=== PATIENT | female | born 1975 | race Caucasian/White ===

== ENCOUNTER 2020-01-08 10:23 | Outpatient (REF) | payer OTHER, SELFPAY ==
[2020-01-08 11:05] LABS: MANUAL DIFF FLAG NO
[2020-01-08 11:06] LABS: Basophils Absolute Auto 0.1 X10*3/uL (0.0-0.2); Basophils Percent Auto 0.6 % (0-2); Eosinophils Absolute Auto 0.2 X10*3/uL (0.0-0.4); Eosinophils Percent Auto 1.9 % (0-4); Hematocrit 38.5 % (37-47); Imm Gran Abs Auto 0.02 X10*3/uL (0.00-0.03); Imm Gran Pct Auto 0.2 % (0.0-0.4); Lymphocytes Absolute Auto 2.6 X10*3/uL (1.2-4.9); Lymphocytes Percent Auto 27.9 % (20-40); Mean Corpuscular HGB Conc 31.2 g/dl (31.0-35.0); Mean Corpuscular Hemoglobin 26.5 pg (27.0-33.0); Mean Platelet Volume 9.7 fL (9.4-12.3); Monocytes Absolute Auto 0.5 X10*3/uL (0.1-1.2); Monocytes Percent Auto 4.8 % (2-11); Neutrophils Percent Auto 64.6 % (45-73); Platelet Count 312 X10*3/uL (160-400); Red Blood Count 4.53 X10*6/uL (4.20-5.50); Red Cell Distribution Width 13.4 % (11.0-16.0); White Blood Count 9.3 X10*3/uL (4.8-10.8)
[2020-01-08 11:56] LABS: Alanine Aminotransferase 24 U/L (0-31); Albumin Level 4.5 g/dL (3.5-5.0); Alkaline Phosphatase 94 U/L (39-117); Anion Gap 13 (12-20); Aspartate Amino Transferase 14 U/L (5-31); Bilirubin Total 0.4 mg/dL (0.0-1.0); Blood Urea Nitrogen 14 mg/dL (9-16); Calcium 9.3 mg/dL (8.4-10.2); Carbon Dioxide 29 mmol/L (22-29); Chloride 99 mmol/L (96-108); Cholesterol 142 mg/dL; Estimated Glomerular Filt Rate > 60; Glucose Random 130 mg/dL (60-115); HDL Cholesterol 57 mg/dL; LDL Cholesterol Calculated 69 mg/dl; Potassium 4.3 mmol/l (3.3-5.1); Sodium 137 mmol/L (135-145); Total Protein 7.8 g/dL (6.5-8.0); Triglycerides 80 mg/dL
[2020-01-08 11:59] LABS: Free T4 (Free Thyroxine) 1.03 ng/dL (0.71-1.85); Thyroid Stimulating Hormone 0.42 uIU/mL (0.32-4.0); Vitamin D 25-OH Total 19.8 ng/mL (>30)
[2020-01-08 12:14] LABS: Folate 10.1 ng/mL (> or = 4.0); Vitamin B12 362 pg/mL (200-900)
[2020-01-08 12:28] LABS: Creatinine Urine 132.26 mg/dL; Microalbum/Creatinine Ratio Ur 20.4 ug/mg cr
== END 2020-01-08 10:24 | disposition home or self-care (01) ==
LOC: HO.LAB 10:23
PROVIDERS: PCP Internal Medicine; Visit Provider Internal Medicine
DX: E11.65 Type 2 diabetes mellitus with hyperglycemia (principal); E78.00 Pure hypercholesterolemia, unspecified; I10 Essential (primary) hypertension
CPT/HCPCS: 36415; 80053; 80061; 82043; 82306; 82607; 82746; 84439; 84443; 85025

== ENCOUNTER 2020-04-09 12:16 | Outpatient (REF) | payer OTHER, SELFPAY ==
[2020-04-09 12:58] LABS: MANUAL DIFF FLAG NO
[2020-04-09 13:01] LABS: Basophils Absolute Auto 0.1 X10*3/uL (0.0-0.2); Basophils Percent Auto 0.5 % (0-2); Eosinophils Absolute Auto 0.1 X10*3/uL (0.0-0.4); Eosinophils Percent Auto 1.2 % (0-4); Hematocrit 36.2 % (37-47); Hemoglobin 11.4 g/dl (12.0-16.0); Imm Gran Abs Auto 0.03 X10*3/uL (0.00-0.03); Imm Gran Pct Auto 0.3 % (0.0-0.4); Lymphocytes Absolute Auto 2.6 X10*3/uL (1.2-4.9); Lymphocytes Percent Auto 25.7 % (20-40); Mean Corpuscular HGB Conc 31.5 g/dl (31.0-35.0); Mean Corpuscular Hemoglobin 26.6 pg (27.0-33.0); Mean Corpuscular Volume 84.4 fL (80-98); Mean Platelet Volume 9.4 fL (9.4-12.3); Monocytes Absolute Auto 0.5 X10*3/uL (0.1-1.2); Monocytes Percent Auto 4.6 % (2-11); Neutrophils Absolute Auto 6.9 X10*3/uL (2.0-8.3); Neutrophils Percent Auto 67.7 % (45-73); Platelet Count 305 X10*3/uL (160-400); Red Blood Count 4.29 X10*6/uL (4.20-5.50); Red Cell Distribution Width 13.8 % (11.0-16.0); White Blood Count 10.2 X10*3/uL (4.8-10.8)
[2020-04-09 13:37] LABS: Alanine Aminotransferase 16 U/L (0-31); Albumin Level 4.2 g/dL (3.5-5.0); Alkaline Phosphatase 104 U/L (39-117); Anion Gap 12 (12-20); Aspartate Amino Transferase 12 U/L (5-31); Bilirubin Total 0.5 mg/dL (0.0-1.0); Blood Urea Nitrogen 14 mg/dL (9-16); Calcium 8.9 mg/dL (8.4-10.2); Carbon Dioxide 30 mmol/L (22-29); Chloride 99 mmol/L (96-108); Estimated Glomerular Filt Rate > 60; Glucose Fasting 127 mg/dL (60-99); Potassium 3.6 mmol/L (3.3-5.1); Sodium 137 mmol/L (135-145); Total Protein 7.5 g/dL (6.5-8.0)
== END 2020-04-09 12:17 | disposition home or self-care (01) ==
LOC: HO.LAB 12:16
PROVIDERS: Absent Provider Internal Medicine; PCP Internal Medicine; Visit Provider Nurse Practitioner Family
DX: E11.65 Type 2 diabetes mellitus with hyperglycemia (principal)
CPT/HCPCS: 36415; 80053; 85025

== ENCOUNTER 2020-04-16 11:47 | Outpatient (REF) | payer OTHER, SELFPAY ==
[2020-04-16 13:19] LABS: MANUAL DIFF FLAG NO
[2020-04-16 13:34] LABS: Basophils Absolute Auto 0.1 X10*3/uL (0.0-0.2); Basophils Percent Auto 0.6 % (0-2); Eosinophils Absolute Auto 0.1 X10*3/uL (0.0-0.4); Eosinophils Percent Auto 1.4 % (0-4); Hematocrit 39.1 % (37-47); Hemoglobin 11.9 g/dl (12.0-16.0); Imm Gran Abs Auto 0.03 X10*3/uL (0.00-0.03); Imm Gran Pct Auto 0.3 % (0.0-0.4); Immature Retic Fraction 8.5 % (3.0-15.9); Lymphocytes Absolute Auto 2.3 X10*3/uL (1.2-4.9); Lymphocytes Percent Auto 25.9 % (20-40); Mean Corpuscular HGB Conc 30.4 g/dl (31.0-35.0); Mean Corpuscular Volume 85.4 fL (80-98); Mean Platelet Volume 9.5 fL (9.4-12.3); Monocytes Absolute Auto 0.4 X10*3/uL (0.1-1.2); Monocytes Percent Auto 4.8 % (2-11); Neutrophils Absolute Auto 6.1 X10*3/uL (2.0-8.3); Platelet Count 349 X10*3/uL (160-400); Red Blood Count 4.58 X10*6/uL (4.20-5.50); Red Cell Distribution Width 13.9 % (11.0-16.0); Reticulocyte Percent 1.4 % (0.5-1.8); Reticulocytes Absolute 0.064 X10*6/uL (0.026-0.095)
[2020-04-16 13:45] LABS: Iron 36 mcg/dL (30-160); Percent Iron Saturation 10 % (15-50); Total Iron Binding Capacity 368 mcg/dL (228-428); Unsaturated Iron Binding 332 ug/dL
[2020-04-16 13:49] LABS: Glucose Urine UA NEG (NEG); Leukocyte Esterase Urine NEG (NEG); Nitrite Urine NEG (NEG); Urine Blood 2+ (NEG); Urine Ketones NEG (NEG); Urine Protein NEG (NEG-TRACE)
[2020-04-16 13:58] LABS: Appearance Urine HAZY; Color Urine YELLOW
[2020-04-16 14:00] LABS: Estimated Average Glucose 154 mg/dL
[2020-04-16 14:08] LABS: Ferritin 43 ng/mL (10-250)
[2020-04-16 14:11] LABS: Bacteria Urine TRACE /LPF; Mucus Urine TRACE /LPF; RBC Urine 30-49 /HPF (0); Squamous Epithelial Cell Urine 1+ /LPF; WBC Urine 0-2 /HPF (0-4)
[2020-04-16 14:29] LABS: Folate 10.7 ng/mL (> or = 4.0); Vitamin B12 449 pg/mL (200-900)
== END 2020-04-16 11:48 | disposition home or self-care (01) ==
LOC: HO.LAB 11:47
PROVIDERS: PCP Internal Medicine; Visit Provider Internal Medicine
DX: D64.9 Anemia, unspecified (principal); E11.65 Type 2 diabetes mellitus with hyperglycemia
CPT/HCPCS: 36415; 81001; 82607; 82728; 82746; 83036; 83540; 85025; 85045

== ENCOUNTER 2020-05-23 11:25 | Outpatient (REF) | payer OTHER, SELFPAY ==
[2020-05-23 12:45] LABS: Glucose Urine UA NEG (NEG); Leukocyte Esterase Urine NEG (NEG); Nitrite Urine NEG (NEG); Specific Gravity - Urine 1.015 (1.005-1.025); Urine Blood TRACE (NEG); Urine Ketones NEG (NEG); Urine Protein NEG (NEG-TRACE)
[2020-05-23 12:49] LABS: Appearance Urine CLEAR; Color Urine YELLOW
[2020-05-23 13:01] LABS: Mucus Urine 1+ /LPF; Squamous Epithelial Cell Urine 1+ /LPF
== END 2020-05-23 11:26 | disposition home or self-care (01) ==
LOC: HO.LAB 11:25
PROVIDERS: PCP Internal Medicine; Visit Provider Internal Medicine
DX: D64.9 Anemia, unspecified (principal)
CPT/HCPCS: 81001

== ENCOUNTER 2020-05-26 13:00 | Outpatient (REF) | payer OTHER, SELFPAY ==
--- NOTE | 2020-05-26 | PFT_ITS ---
INDICATION: Shortness of breath. SPIROMETRY: The FEV1 to FVC of 90% with an FEV1 of 1.55 L, which is 54% predicted, and an FVC of 1.71 L, which is 49% predicted. No significant response to bronchodilators noted. Maximum voluntary ventilation 53% predicted. LUNG VOLUMES: Total lung capacity 72% predicted with an expiratory reserve volume of 23% predicted secondary to an elevated BMI. DIFFUSION CAPACITY: The patient attempted the maneuver, however, could not perform. Therefore, we cannot calculate her diffusion capacity. COMPARISONS: None. INTERPRETATION: No obstructive ventilatory defect. No significant response to bronchodilators noted. The patient does have a moderate decrease in maximum voluntary ventilation secondary to deconditioning, however, cannot rule out neuromuscular conditions. Lung volumes do demonstrate a mild restrictive ventilatory defect. Therefore, need to consider the possibility of underlying interstitial lung conditions and/or neuromuscular conditions. It is likely that her BMI is playing a role in her restriction as it is also decreasing her expiratory reserve volume to a significant amount. Clinical correlation warranted. Further imaging may also be warranted. Ahmet Powell MD MR/MODL / [id number]
== END 2020-05-26 13:01 | disposition home or self-care (01) ==
LOC: HO.RESP 13:00
PROVIDERS: PCP Internal Medicine; Visit Provider Internal Medicine
DX: R06.02 Shortness of breath (principal)
CPT/HCPCS: 94060; 94727

== ENCOUNTER 2020-08-27 11:21 | Outpatient (REF) | payer OTHER, SELFPAY ==
[2020-08-27 14:05] LABS: Glucose Urine UA NEG (NEG); Leukocyte Esterase Urine NEG (NEG); Nitrite Urine NEG (NEG); PH 5.5 (5.0-8.0); Specific Gravity - Urine 1.025 (1.005-1.025); Urine Blood 1+ (NEG); Urine Ketones NEG (NEG); Urine Protein NEG (NEG-TRACE)
[2020-08-27 14:10] LABS: Appearance Urine HAZY; Color Urine YELLOW
[2020-08-27 14:23] LABS: Squamous Epithelial Cell Urine TRACE /LPF; WBC Urine 0-2 /HPF (0-4)
== END 2020-08-27 11:22 | disposition home or self-care (01) ==
LOC: HO.LAB 11:21
PROVIDERS: PCP Internal Medicine; Visit Provider Internal Medicine
DX: D64.9 Anemia, unspecified (principal)
CPT/HCPCS: 81001

== ENCOUNTER 2020-08-28 12:52 | Outpatient (REF) | payer OTHER, SELFPAY ==
[2020-08-28 13:38] LABS: MANUAL DIFF FLAG NO
[2020-08-28 13:41] LABS: Basophils Absolute Auto 0.1 X10*3/uL (0.0-0.2); Basophils Percent Auto 0.8 % (0-2); Eosinophils Absolute Auto 0.3 X10*3/uL (0.0-0.4); Eosinophils Percent Auto 2.6 % (0-4); Hemoglobin 11.5 g/dl (12.0-16.0); Imm Gran Abs Auto 0.04 X10*3/uL (0.00-0.03); Imm Gran Pct Auto 0.4 % (0.0-0.4); Lymphocytes Absolute Auto 2.6 X10*3/uL (1.2-4.9); Lymphocytes Percent Auto 27.3 % (20-40); Mean Corpuscular HGB Conc 31.1 g/dl (31.0-35.0); Mean Corpuscular Hemoglobin 26.3 pg (27.0-33.0); Mean Corpuscular Volume 84.7 fL (80-98); Mean Platelet Volume 9.5 fL (9.4-12.3); Monocytes Absolute Auto 0.6 X10*3/uL (0.1-1.2); Neutrophils Absolute Auto 6.1 X10*3/uL (2.0-8.3); Neutrophils Percent Auto 62.9 % (45-73); Platelet Count 325 X10*3/uL (160-400); Red Blood Count 4.37 X10*6/uL (4.20-5.50); Red Cell Distribution Width 13.7 % (11.0-16.0); White Blood Count 9.7 X10*3/uL (4.8-10.8)
[2020-08-28 14:10] LABS: Alanine Aminotransferase 10 U/L (0-31); Albumin Level 4.2 g/dL (3.5-5.0); Alkaline Phosphatase 99 U/L (39-117); Anion Gap 12 (12-20); Aspartate Amino Transferase 10 U/L (5-31); Bilirubin Total 0.5 mg/dL (0.0-1.0); Blood Urea Nitrogen 11 mg/dL (9-16); Calcium 9.7 mg/dL (8.4-10.2); Carbon Dioxide 29 mmol/L (22-29); Chloride 100 mmol/L (96-108); Estimated Glomerular Filt Rate > 60; Glucose Random 141 mg/dL (60-115); Potassium 4.4 mmol/L (3.3-5.1); Sodium 137 mmol/L (135-145); Total Protein 7.7 g/dL (6.5-8.0)
[2020-08-28 14:32] LABS: Thyroid Stimulating Hormone 0.32 uIU/mL (0.32-4.0)
== END 2020-08-28 12:53 | disposition home or self-care (01) ==
LOC: HO.LAB 12:52
PROVIDERS: PCP Internal Medicine; Visit Provider Internal Medicine
DX: D64.9 Anemia, unspecified (principal); Z12.31 Encounter for screening mammogram for malignant neoplasm of breast
CPT/HCPCS: 36415; 80053; 84439; 84443; 85025

== ENCOUNTER 2021-03-03 09:20 | Outpatient (REF) | payer OTHER, SELFPAY ==
[2021-03-03 09:45] LABS: MANUAL DIFF FLAG NO
[2021-03-03 09:59] LABS: Basophils Absolute Auto 0.1 X10*3/uL (0.0-0.2); Basophils Percent Auto 0.8 % (0-2); Eosinophils Absolute Auto 0.2 X10*3/uL (0.0-0.4); Eosinophils Percent Auto 1.9 % (0-4); Hematocrit 42.7 % (37.0-47.0); Hemoglobin 13.1 g/dl (12.0-16.0); Imm Gran Abs Auto 0.04 X10*3/uL (0.00-0.03); Imm Gran Pct Auto 0.4 % (0.0-0.4); Immature Retic Fraction 12.1 % (3.0-15.9); Lymphocytes Absolute Auto 2.7 X10*3/uL (1.2-4.9); Lymphocytes Percent Auto 28.3 % (20-40); Mean Corpuscular HGB Conc 30.7 g/dl (31.0-35.0); Mean Corpuscular Hemoglobin 25.6 pg (27.0-33.0); Mean Corpuscular Volume 83.6 fL (80.0-98.0); Mean Platelet Volume 9.1 fL (9.4-12.3); Monocytes Absolute Auto 0.6 X10*3/uL (0.1-1.2); Monocytes Percent Auto 5.8 % (2-11); Neutrophils Percent Auto 62.8 % (45-73); Platelet Count 350 X10*3/uL (160-400); Red Blood Count 5.11 X10*6/uL (4.20-5.50); Red Cell Distribution Width 13.9 % (11.0-16.0); Retic HGB Equivalent 27.8 pg (30.0-35.0); Reticulocyte Percent 1.2 % (0.5-1.8); Reticulocytes Absolute 0.063 X10*6/uL (0.026-0.095); White Blood Count 9.6 X10*3/uL (4.8-10.8)
[2021-03-03 10:33] LABS: Alanine Aminotransferase 16 U/L (0-31); Albumin Level 4.5 g/dL (3.5-5.0); Alkaline Phosphatase 106 U/L (39-117); Anion Gap 14 (12-20); Aspartate Amino Transferase 12 U/L (5-31); Bilirubin Total 0.6 mg/dL (0.0-1.0); Blood Urea Nitrogen 12 mg/dL (9-16); Calcium 10.1 mg/dL (8.4-10.2); Carbon Dioxide 29 mmol/L (22-29); Chloride 99 mmol/L (96-108); Cholesterol 141 mg/dL; Estimated Glomerular Filt Rate > 60; Glucose Random 145 mg/dL (60-115); HDL Cholesterol 55 mg/dL; Iron 43 mcg/dL (30-160); LDL Cholesterol Calculated 66 mg/dl; Percent Iron Saturation 10 % (15-50); Potassium 3.8 mmol/L (3.3-5.1); Sodium 138 mmol/L (135-145); Total Iron Binding Capacity 413 mcg/dL (228-428); Total Protein 8.1 g/dL (6.5-8.0); Triglycerides 103 mg/dL; Unsaturated Iron Binding 370 ug/dL
[2021-03-03 10:49] LABS: Appearance Urine CLOUDY; Color Urine YELLOW; Glucose Urine UA >=1000 MG/DL (NEG); Leukocyte Esterase Urine NEG (NEG); Nitrite Urine NEG (NEG); Specific Gravity - Urine 1.025 (1.005-1.025); Urine Blood 3+ (NEG); Urine Ketones NEG (NEG); Urine Protein TRACE MG/DL (NEG-TRACE)
[2021-03-03 10:55] LABS: Microalbum/Creatinine Ratio Ur 41.8 ug/mg cr
[2021-03-03 10:58] LABS: Ferritin 26 ng/mL (10-250); Free T4 (Free Thyroxine) 1.12 ng/dL (0.71-1.85); Thyroid Stimulating Hormone 0.37 uIU/mL (0.32-4.0); Vitamin D 25-OH Total 20.5 ng/mL (>30)
[2021-03-03 11:00] LABS: Bacteria Urine 1+ /LPF; Mucus Urine 1+ /LPF; Squamous Epithelial Cell Urine 2+ /LPF; WBC Urine 0-2 /HPF (0-4)
[2021-03-03 11:03] LABS: Folate 16.9 ng/mL (> or = 4.0); Vitamin B12 529 pg/mL (200-900)
== END 2021-03-03 09:21 | disposition home or self-care (01) ==
LOC: HO.LAB 09:20
PROVIDERS: PCP Internal Medicine; Visit Provider Internal Medicine
DX: E11.65 Type 2 diabetes mellitus with hyperglycemia (principal); E78.00 Pure hypercholesterolemia, unspecified
CPT/HCPCS: 36415; 80053; 80061; 81001; 82043; 82306; 82607; 82728; 82746; 83540; 84439; 84443; 85025; 85045

== ENCOUNTER 2021-08-03 16:15 | Outpatient (REF) | payer OTHER, SELFPAY ==
[2021-08-03 18:17] LABS: Appearance Urine CLEAR; Color Urine STRAW; Glucose Urine UA >=1000 MG/DL (NEG); Leukocyte Esterase Urine NEG (NEG); Nitrite Urine NEG (NEG); UACC Culture Trigger NO; Urine Blood 1+ (NEG); Urine Ketones NEG (NEG); Urine Protein NEG (NEG-TRACE)
[2021-08-03 18:29] LABS: Squamous Epithelial Cell Urine 1+ /LPF
[2021-08-03 18:30] LABS: Bacteria Urine TRACE /LPF; WBC Urine 0-2 /HPF (0-4)
== END 2021-08-03 16:16 | disposition home or self-care (01) ==
LOC: HO.LAB 16:15
PROVIDERS: PCP Internal Medicine; Visit Provider Internal Medicine
DX: R30.0 Dysuria (principal)
CPT/HCPCS: 81001

== ENCOUNTER 2021-11-20 10:30 | Outpatient (REF) | payer OTHER, SELFPAY ==
--- NOTE | ~2021-11-20 | XR_ITS ---
EXAMINATION: XR LUMBOSACRAL SPINE CLINICAL INFORMATION: Low back pain. COMPARISON: [facility] of 06/28/2011. TECHNIQUE: 3 views of the lumbosacral spine. FINDINGS: There are 4 [id number] lumbar vertebra with sacralization of L5. No acute fracture, spondylolisthesis, or spondylolysis is identified. Disc spaces are maintained. There appears to be some mild facet arthropathy at the L4-L5 level. There is some sclerosis seen involving the inferior aspects of the sacroiliac joints bilaterally right greater than left without evidence of fusion or widening. There is some calcific densities seen overlying the mid abdomen bilaterally measuring up to 5 mm in diameter and may represent renal calculi psoas margins are intact. I do not definitely see any calcifications along the expected path of the ureters. IUD seen in place. XR/XR lumbar spine 2-3V IMPRESSION: Sacralization of L5. No acute fracture, spinal listhesis, or spondylolysis identified. Question bilateral renal calculi. Renal ultrasound would be of help in further evaluation as well as for evaluation of possible hydronephrosis and obstructive uropathy causing back pain.
[2021-11-20 10:43] LABS: MANUAL DIFF FLAG NO
[2021-11-20 11:41] LABS: Basophils Absolute Auto 0.1 X10*3/uL (0.0-0.2); Basophils Percent Auto 0.6 % (0-2); Eosinophils Absolute Auto 0.4 X10*3/uL (0.0-0.4); Eosinophils Percent Auto 4.7 % (0-4); Hematocrit 40.8 % (37.0-47.0); Hemoglobin 13.1 g/dl (12.0-16.0); Imm Gran Abs Auto 0.03 X10*3/uL (0.00-0.03); Imm Gran Pct Auto 0.4 % (0.0-0.4); Lymphocytes Absolute Auto 2.2 X10*3/uL (1.2-4.9); Lymphocytes Percent Auto 27.1 % (20-40); Mean Corpuscular HGB Conc 32.1 g/dl (31.0-35.0); Mean Corpuscular Hemoglobin 27.7 pg (27.0-33.0); Mean Corpuscular Volume 86.3 fL (80.0-98.0); Mean Platelet Volume 9.3 fL (9.4-12.3); Monocytes Absolute Auto 0.7 X10*3/uL (0.1-1.2); Neutrophils Absolute Auto 4.9 x10*3/uL (2.0-8.3); Neutrophils Percent Auto 59.2 % (45-73); Platelet Count 273 X10*3/uL (160-400); Red Blood Count 4.73 X10*6/uL (4.20-5.50); Red Cell Distribution Width 13.2 % (11.0-16.0); White Blood Count 8.3 X10*3/uL (4.8-10.8)
[2021-11-20 11:47] LABS: Appearance Urine Clear; Color Urine Yellow; Glucose Urine UA >=1000 mg/dL (Negative); Leukocyte Esterase Urine Negative (Negative); Nitrite Urine Negative (Negative); PH 6.5 (5.0-9.0); Specific Gravity - Urine >= 1.030 (1.005-1.025); UMIC TRIGGER UA YES; Urine Blood Negative (Negative); Urine Ketones Negative (Negative); Urine Protein Negative (Neg-Trace)
[2021-11-20 11:47] LABS: Estimated Average Glucose 140 mg/dL; Hemoglobin A1c % 6.5 %
[2021-11-20 11:54] LABS: Bacteria Urine 1+ (None Seen); Hyaline Casts Urine 0-2 /LPF (0-2); WBC Urine 0-5 /HPF (0-5)
[2021-11-20 12:24] LABS: Alanine Aminotransferase 15 U/L (0-31); Albumin Level 4.4 g/dL (3.5-5.0); Alkaline Phosphatase 103 U/L (39-117); Anion Gap 13 (12-20); Aspartate Amino Transferase 12 U/L (5-31); Bilirubin Total 0.4 mg/dL (0.0-1.0); Blood Urea Nitrogen 10 mg/dL (9-16); Calcium 9.5 mg/dL (8.4-10.2); Carbon Dioxide 30 mmol/L (22-29); Chloride 99 mmol/L (96-108); Estimated Glomerular Filt Rate > 60; Glucose Random 114 mg/dL (60-115); Potassium 4.1 mmol/L (3.3-5.1); Sodium 138 mmol/L (135-145); Total Protein 7.5 g/dL (6.5-8.0)
[2021-11-20 12:35] LABS: Free T4 (Free Thyroxine) 1.09 ng/dL (0.71-1.85); Thyroid Stimulating Hormone 0.33 uIU/mL (0.32-4.0)
== END 2021-11-20 10:31 | disposition home or self-care (01) ==
LOC: HO.XRAY 10:30
PROVIDERS: PCP Internal Medicine; Visit Provider Internal Medicine
DX: M54.50 Low back pain, unspecified (principal); E11.65 Type 2 diabetes mellitus with hyperglycemia
CPT/HCPCS: 36415; 72100; 80053; 81001; 83036; 84439; 84443; 85025

== ENCOUNTER 2021-11-23 09:57 | Outpatient (REF) | payer OTHER, SELFPAY ==
--- NOTE | ~2021-11-23 | XR_ITS ---
EXAMINATION: XR CHEST CLINICAL INFORMATION: Cough COMPARISON: Previous chest x-ray from 2008 TECHNIQUE: 2 views of the chest were obtained. FINDINGS: The cardiac and mediastinal contours are stable. The lungs are clear. There is no pleural effusion or pneumothorax. There are degenerative changes of the spine. XR/XR chest 2V IMPRESSION: No evidence for acute disease in the chest.
[2021-11-23 11:03] LABS: COVID-19 Test Negative (Negative); IDNOW Serial# 16C4AD1C
== END 2021-11-23 09:58 | disposition home or self-care (01) ==
LOC: HO.XRAY 09:57
PROVIDERS: Internal Medicine; PCP Internal Medicine; Visit Provider Internal Medicine
DX: Z20.822 Contact with and (suspected) exposure to COVID-19 (principal); R05.9 Cough, unspecified
CPT/HCPCS: 71046; 87635; C9803

== ENCOUNTER 2022-03-03 10:12 | Outpatient (REF) | payer OTHER, SELFPAY ==
[2022-03-03 10:27] LABS: MANUAL DIFF FLAG NO
[2022-03-03 11:01] LABS: Basophils Percent Auto 0.5 % (0-2); Eosinophils Absolute Auto 0.1 X10*3/uL (0.0-0.4); Hematocrit 41.4 % (37.0-47.0); Hemoglobin 13.4 g/dl (12.0-16.0); Imm Gran Abs Auto 0.02 X10*3/uL (0.00-0.03); Imm Gran Pct Auto 0.4 % (0.0-0.4); Lymphocytes Absolute Auto 1.9 X10*3/uL (1.2-4.9); Lymphocytes Percent Auto 35.2 % (20-40); Mean Corpuscular HGB Conc 32.4 g/dl (31.0-35.0); Mean Corpuscular Hemoglobin 27.8 pg (27.0-33.0); Mean Corpuscular Volume 85.9 fL (80.0-98.0); Mean Platelet Volume 9.7 fL (9.4-12.3); Monocytes Absolute Auto 0.5 X10*3/uL (0.1-1.2); Monocytes Percent Auto 8.9 % (2-11); Neutrophils Absolute Auto 2.9 x10*3/uL (2.0-8.3); Platelet Count 268 X10*3/uL (160-400); Red Blood Count 4.82 X10*6/uL (4.20-5.50); Red Cell Distribution Width 13.1 % (11.0-16.0); White Blood Count 5.5 X10*3/uL (4.8-10.8)
[2022-03-03 11:30] LABS: Estimated Average Glucose 146 mg/dL; Hemoglobin A1c % 6.7 %
[2022-03-03 11:56] LABS: Alanine Aminotransferase 19 U/L (0-31); Albumin Level 4.2 g/dL (3.5-5.0); Alkaline Phosphatase 93 U/L (39-117); Anion Gap 12 (12-20); Aspartate Amino Transferase 15 U/L (5-31); Bilirubin Total 0.5 mg/dL (0.0-1.0); Blood Urea Nitrogen 12 mg/dL (9-16); Calcium 9.6 mg/dL (8.4-10.2); Carbon Dioxide 29 mmol/L (22-29); Chloride 99 mmol/L (96-108); Cholesterol 129 mg/dL; Estimated Glomerular Filt Rate > 60; Glucose Random 161 mg/dL (60-115); HDL Cholesterol 49 mg/dL; LDL Cholesterol Calculated 63 mg/dl; Potassium 3.2 mmol/L (3.3-5.1); Sodium 137 mmol/L (135-145); Total Protein 7.2 g/dL (6.5-8.0); Triglycerides 86 mg/dL
[2022-03-03 12:01] LABS: Free T4 (Free Thyroxine) 1.06 ng/dL (0.71-1.85); Thyroid Stimulating Hormone 0.38 uIU/mL (0.32-4.0); Vitamin D 25-OH Total 20.4 ng/mL (>30)
[2022-03-03 12:16] LABS: Folate 13.5 ng/mL (> or = 4.0); Vitamin B12 403 pg/mL (200-900)
[2022-03-03 14:22] LABS: Creatinine Urine 111.84 mg/dL; Microalbum/Creatinine Ratio Ur 13.4 ug/mg cr
== END 2022-03-03 10:13 | disposition home or self-care (01) ==
LOC: HO.LAB 10:12
PROVIDERS: PCP Internal Medicine; Visit Provider Internal Medicine
DX: E11.65 Type 2 diabetes mellitus with hyperglycemia (principal); I10 Essential (primary) hypertension; E78.00 Pure hypercholesterolemia, unspecified
CPT/HCPCS: 36415; 80053; 80061; 82043; 82306; 82607; 82746; 83036; 84439; 84443; 85025

== ENCOUNTER 2022-03-22 12:20 | Outpatient (REF) | payer OTHER, SELFPAY ==
--- NOTE | ~2022-03-22 | MM_ITS ---
EXAMINATION: MM SCREENING DIGITAL BREAST TOMOSYNTHESIS, BILATERAL CLINICAL INFORMATION: Screening. Asymptomatic. Family history breast cancer, mother. The lifetime risk of breast cancer based on the Tyrer-Cuzick Model is 22%. COMPARISON: Mammography: 01/30/2018 ([facility]) TECHNIQUE: Digital breast tomosynthesis is performed in both the craniocaudal and mediolateral oblique views along with computer-aided detection (CAD). Synthesized 2D images are generated from the tomosynthesis. FINDINGS: There are scattered areas of fibroglandular density (ACR BI-RADS breast composition Category b). Parenchymal pattern is similar to prior outside exam. There is no significant mass or architectural abnormality or developing density. No abnormal calcifications. There are scattered punctate round uniform calcifications in each breast. Dermal lesion is again noted overlying the posterior upper outer right breast. The axilla are unremarkable. No significant changes. MM/MM tomosynthesis screening BI IMPRESSION: No mammographic evidence of malignancy. ASSESSMENT: BI-RADS 2: Benign RECOMMENDATION: Routine annual mammography screening. This patient's information was entered into a reminder system with a target due date for their next mammogram.
== END 2022-03-22 12:21 | disposition home or self-care (01) ==
LOC: HO.MAMMO 12:20
PROVIDERS: PCP Internal Medicine; Visit Provider Internal Medicine
DX: Z12.31 Encounter for screening mammogram for malignant neoplasm of breast (principal)
CPT/HCPCS: 77063; 77067

== ENCOUNTER 2022-06-18 09:54 | Outpatient (REF) | payer OTHER, SELFPAY ==
[2022-06-18 11:01] LABS: Anion Gap 13 (12-20); Blood Urea Nitrogen 14 mg/dL (9-16); Carbon Dioxide 29 mmol/L (22-29); Chloride 104 mmol/L (96-108); Estimated Glomerular Filt Rate > 60; Glucose Random 115 mg/dL (60-115); Potassium 4.3 mmol/L (3.3-5.1); Sodium 142 mmol/L (135-145)
== END 2022-06-18 09:55 | disposition home or self-care (01) ==
LOC: HO.LAB 09:54
PROVIDERS: PCP Internal Medicine; Visit Provider Internal Medicine
DX: E87.6 Hypokalemia (principal)
CPT/HCPCS: 36415; 80048

== ENCOUNTER 2022-09-16 13:58 | Outpatient (AMB) | payer OTHER, SELFPAY ==
--- NOTE | 2022-09-16 15:07 | A.OFFPC_ITS ---
Vital Signs 09/16/22 15:08 Height 5 ft 3 in Weight 210 lb BMI 37.2 BP 124/78 Blood Pressure Location Lt brachial Position Sitting Pulse 80 Pulse Source Pulse Oximeter Pulse Oximetry (%) 98 Oxygen Delivery Method Room Air Intake Visit Reasons: DM Allergies No Known Allergies Allergy (Verified 09/16/22 15:09) Medication List - Last Reconciled 09/16/22 by Raj Rodas MD acetaminophen ER (Tylenol 8 Hour) 650 mg PO Q12H PRN albuterol sulfate 90 mcg/actuation (ProAir HFA) 2 puffs inhalation Q6H PRN alcohol swabs 1 pad topical .QD 90 days amlodipine 2.5 mg PO DAILY aspirin 81 mg PO DAILY atorvastatin 20 mg PO DAILY blood sugar diagnostic As directed blood-glucose sensor ([employer] G5-G4 Sensor device) As directed blood-glucose transmitter ([employer] G5 Transmitter device) As directed cholecalciferol (vitamin D3) 50 mcg PO DAILY 90 days cyclobenzaprine 5 mg PO TID PRN docusate sodium (Colace) 100 mg PO DAILY PRN 90 days empagliflozin (Jardiance) 25 mg PO DAILY 90 days gabapentin 100 mg PO BEDTIME 30 days lancets As directed lidocaine 5% 1 patch topical DAILY 15 days lidocaine 4% (Aspercreme (lidocaine)) 1 patch topical BID PRN lisinopril 30 mg PO DAILY metformin 500 mg PO BID potassium citrate ER 15 mEq PO TID 30 days Tobacco use date assessed: 03/04/22 Dental Screening Dental Screen Date: 09/16/22 Did you have a dental visit in the last 12 months?: Yes Did you have a dental problem in the last 6 months where you did not have access to dental care?: No Was dental information given to patient?: Patient has dentist HPI DM HPI Details 47-year-old obese female with diabetes mellitus hypercholesterolemia hypertension and hypokalemia last seen in May 2022 was concern about potassium and retesting done. Mammogram is up-to-date Cologuard is up-to-date [facility] Medical History (Updated 06/10/22 @ 14:48 by Raj Rodas MD) Anemia Breast cancer screening by mammogram Colon cancer screening Colonoscopy refused Dizziness History of renal calculi Hypercholesterolemia Hypertension Increased abdominal girth Medullary sponge kidney Menorrhagia Obesity Type 2 diabetes mellitus with hyperglycemia Vitamin D deficiency Surgical History History of section History of laparoscopic cholecystectomy Family History (Updated 11/28/20 @ 13:43 by RAIN Delong) Father Pancreatic cancer Hypertension Diabetes Mother Breast cancer Hypertension Brother Hypertension Paternal Grandfather Myocardial infarction Social History Housing: House Alcohol intake: never Patient Tobacco Use Status: Never used Tobacco e-Cigarette/Vaping Use: Never Used Second Hand Smoke Exposure: No service: No Current occupational status: unemployed Cognitive needs: No Hearing needs: No Vision needs: No Questionnaire PHQ-9 Over the last 2 weeks, how often have you been bothered by any of the following problems? 1. Little interest or pleasure in doing things: not at all 2. Feeling down, depressed, or hopeless: not at all 3. Trouble falling or staying asleep, or sleeping too much: not at all 4. Feeling tired or having little energy: not at all 5. Poor appetite or overeating: not at all 6. Feeling bad about yourself - or that you are a failure or have let yourself or your family down: not at all 7. Trouble concentrating on things, such as reading the newspaper or watching television: not at all 8. Moving or speaking so slowly that other people could have noticed. Or the opposite - being so fidgety or restless that you have been moving around a lot more than usual: not at all 9. Thoughts that you would be better off or of hurting yourself in some way: not at all Total score: 0 Depression Screening Interpretation: Negative Source: Developed by Drs. Ender Rosario, Gale Navarro, Alejandro Cabrera and colleagues, with an educational bing from [employer]. Thrive Questionnaire Date Thrive assessed: 03/04/22 AUDIT C Alcohol Use Questionnaire (AUDIT-C) 1. How often do you have a drink containing alcohol?: Never 2. How many drinks containing alcohol do you have on a typical day when you are drinking?: 1 or 2 (0) 3. How often do you have six or more drinks on one occasion?: Never Total Score: 0 ANGELA-7 AMB Questionnaire ANGELA-7 Date ANGELA - 7 assessed: 03/04/22 Source: Developed by Drs. Ender Rosario, Gale Navarro, Alejandro Cabrera and colleagues, with an educational bing from [employer]. Physical exam (Primary Care) Vital Signs: Last Vital Signs Pulse 80 09/16/22 15:08 BP 124/78 09/16/22 15:08 Pulse Ox 98 09/16/22 15:08 Oxygen Delivery Method Room Air 09/16/22 15:08 BMI result Body Mass Index 37.2 Tobacco/Smoking Status: Tobacco use Status Tobacco use date assessed 03/04/22 09/16/22 15:08 Patient Tobacco Use Status Never used Tobacco 09/16/22 15:08 e-Cigarette/Vaping Use Never Used 09/16/22 15:08 PHQ-9: PHQ-9 Score PHQ-9: Total score 0 09/16/22 15:29 Depression Screening Interpretation: Negative Thrive Assessment: Date of Thrive Assessment Date Thrive assessed 03/04/22 09/16/22 15:08 Const General: alert; No acute distress Eyes Conjunctivae: conjunctivae normal Resp Auscultation: clear to auscultation bilaterally Cardio Rate: regular rate Rhythm: regular rhythm GI Inspection: Yes normal to inspection Extrem General: Yes normal to inspection and No edema Results AMB Hemoglobin A1c AMB Hemoglobin A1c 5.7 % Last Edit by Alessandra Reyes CMA on 09/16/22 15 :29 Assessment and Plan Assessment & Plan (1) Type 2 diabetes mellitus with hyperglycemia: Code(s): E11.65 - Type 2 diabetes mellitus with hyperglycemia Qualifiers: Diabetes mellitus continuous churn buttermaker insulin use: unspecified care home insulin use status Qualified Code(s): E11.65 - Type 2 diabetes mellitus with hyperglycemia Plan: Decrease the amount of carbohydrate intake, pasta, bread, rice and potatoes are all sugar and that is aside from all the sweet stuff, remember that fruits are good but they are Sweet also. Hemoglobin A1c goal of less than 6.5 patient takes Jardiance and metformin (2) Obesity: Code(s): E66.9 - Obesity, unspecified Qualifiers: Obesity type: due to excess calories Obesity classification: adult class 3 (BMI >= 40) Serious obesity comorbidity presence: with serious comorbidity Body mass index: BMI 40.0-44.9 Qualified Code(s): E66.01 - Morbid (severe) obesity due to excess calories; Z68.41 - Body mass index [BMI]40.0- 44.9, adult Plan: Diet and exercise (3) Hypercholesterolemia: Code(s): E78.00 - Pure hypercholesterolemia, unspecified Plan: Avoid fried foods, chicken skin, eggs, butter margarine, pastries and meat. Be it pork or beef they have a lot of cholesterol February 2022 last blood work patient is taking atorvastatin 20 mg once a day (4) Hypertension: Code(s): I10 - Essential (primary) hypertension Qualifiers: Hypertension type: essential hypertension Qualified Code(s): I10 - Essential (primary) hypertension Plan: Continue with blood pressure medication. Decrease salt intake and exercise patient is on amlodipine 2.5 mg once a day and lisinopril 30 mg once a day (5) Hypokalemia: Code(s): E87.6 - Hypokalemia Plan: Resolved Orders: Orders AMB Hemoglobin A1c Today Z13.9 - Encounter for screening, unspecified AMB Urinalysis Automated Today M54.50 - Low back pain, unspecified, Z13.9 - Encounter for screening, unspecified Referrals Ophthalmology Referral E11.65 - Type 2 diabetes mellitus with hyperglycemia Medications: New cyclobenzaprine 5 mg PO TID PRN 30 tabs 0RF muscle spasm M54.50 - Low back pain, unspecified Refilled atorvastatin 20 mg PO DAILY 90 tabs 1RF G47.10 - Hypersomnia, unspecified Coding Level of Care Code Est Pt Level 4 (19394) Diagnoses Type 2 diabetes mellitus with hyperglycemia E11.65 Diabetes mellitus continuous churn buttermaker insulin use: unspecified care home insulin use status Obesity E66.01; Z68.41 Obesity type: due to excess calories Obesity classification: adult class 3 (BMI >= 40) Serious obesity comorbidity presence: with serious comorbidity Body mass index: BMI 40.0-44.9 Hypercholesterolemia E78.00 Hypertension I10 Hypertension type: essential hypertension Hypokalemia E87.6
[2022-09-16 15:08] VITALS: BP 124/78; PULSE 80; O2SAT 98; BMI 37.2
== END 2022-09-16 15:43 | disposition home or self-care (01) ==
PROVIDERS: Visit Provider Internal Medicine
DX: E11.65 Type 2 diabetes mellitus with hyperglycemia (principal); E66.01 Morbid (severe) obesity due to excess calories; Z68.41 Body mass index [BMI] 40.0-44.9, adult; E78.00 Pure hypercholesterolemia, unspecified; I10 Essential (primary) hypertension; E87.6 Hypokalemia; Z13.9 Encounter for screening, unspecified
CPT/HCPCS: 83036; 99214

== ENCOUNTER 2023-03-01 20:40 | Emergency (ER) | payer OTHER, SELFPAY ==
--- NOTE | ~2023-03-01 | CT_ITS ---
EXAMINATION: CT ABDOMEN AND PELVIS WITHOUT CONTRAST CLINICAL INFORMATION: Right flank pain. COMPARISON: None available. TECHNIQUE: Multidetector volumetric imaging was performed from the superior aspect of the liver through the pubic symphysis. Sagittal and coronal reformatted images were obtained on the technologist's workstation. This CT examination was performed using dose optimization techniques as appropriate, variously including the following: *Automated exposure control *Adjustment of mA and/or kV according to patient size (this includes techniques or standardized protocols for targeted exams where dose is matched to indication/reason for exam; i.e. extremities or head) *Use of iterative reconstruction technique DLP: 756 mGy-cm FINDINGS: LUNG BASES: The visualized lung bases are unremarkable. LIVER, GALLBLADDER, AND BILIARY TREE: The liver is normal in size, shape, and attenuation. No focal hepatic lesion or biliary ductal dilatation is present. There has been a prior cholecystectomy. PANCREAS: Unremarkable. SPLEEN: Unremarkable. ADRENAL GLANDS: Unremarkable. KIDNEYS AND URETERS: The kidneys are normal in size, and shape as well as overall attenuation. There are numerous bilateral renal calculi as well as calcifications within the renal pyramids. There is no hydronephrosis or hydroureter. BLADDER: Unremarkable. GASTROINTESTINAL TRACT: The small and large bowel are unremarkable. The appendix is unremarkable. ABDOMINAL WALL: No significant hernia is appreciated. LYMPH NODES: Normal. VASCULAR: Unremarkable. PELVIC VISCERA: Unremarkable. OSSEOUS STRUCTURES: Unremarkable. CT/CT abdomen pelvis wo IV con IMPRESSION: 1. Numerous bilateral renal calculi as well as calcifications within the renal pyramids, consistent with medullary nephrocalcinosis. 2. No hydronephrosis or hydroureter. Fleischner guidelines were followed.
[2023-03-01 20:58] VITALS: BP 125/75; PULSE 115; RESP 20; TEMP 37.7; O2SAT 95; BMI 39.0
[2023-03-01 21:42] LABS: MANUAL DIFF FLAG NO
[2023-03-01 21:44] LABS: Basophils Percent Auto 0.2 % (0-2); Eosinophils Percent Auto 0.1 % (0-4); Hematocrit 41.5 % (37.0-47.0); Hemoglobin 13.4 g/dl (12.0-16.0); Imm Gran Abs Auto 0.09 X10*3/uL (0.00-0.03); Imm Gran Pct Auto 0.5 % (0.0-0.4); Lymphocytes Absolute Auto 1.3 X10*3/uL (1.2-4.9); Lymphocytes Percent Auto 7.7 % (20-40); Mean Corpuscular HGB Conc 32.3 g/dl (31.0-35.0); Mean Corpuscular Hemoglobin 27.2 pg (27.0-33.0); Mean Corpuscular Volume 84.3 fL (80.0-98.0); Mean Platelet Volume 8.7 fL (9.4-12.3); Monocytes Absolute Auto 0.9 X10*3/uL (0.1-1.2); Monocytes Percent Auto 5.1 % (2-11); Neutrophils Absolute Auto 14.7 x10*3/uL (2.0-8.3); Neutrophils Percent Auto 86.4 % (45-73); Platelet Count 310 X10*3/uL (160-400); Red Blood Count 4.92 X10*6/uL (4.20-5.50); Red Cell Distribution Width 13.1 % (11.0-16.0); White Blood Count 17.1 X10*3/uL (4.8-10.8)
[2023-03-01 21:45] LABS: Appearance Urine Clear; Color Urine Yellow; Glucose Urine UA >=1000 mg/dL (Negative); Leukocyte Esterase Urine Negative (Negative); Nitrite Urine Negative (Negative); Specific Gravity - Urine >= 1.030 (1.005-1.025); UMIC TRIGGER UACC YES; Urine Blood Small (1+) (Negative); Urine Ketones Negative (Negative); Urine Protein Negative (Neg-Trace)
[2023-03-01 21:46] LABS: UPreg QC Valid YES; Urine Pregnancy NEGATIVE (NEGATIVE)
[2023-03-01 21:50] LABS: Bacteria Urine None Seen (None Seen); Hyaline Casts Urine 0-2 /LPF (0-2); Squamous Epithelial Cell Urine 0-2 /HPF (0-2); UACC Culture Trigger YES
[2023-03-01 22:03] LABS: Alanine Aminotransferase 21 U/L (0-31); Albumin Level 4.4 g/dL (3.5-5.0); Alkaline Phosphatase 109 U/L (39-117); Anion Gap 12 (12-20); Aspartate Amino Transferase 14 U/L (5-31); Bilirubin Total 0.6 mg/dL (0.0-1.0); Blood Urea Nitrogen 9 mg/dL (9-16); Calcium 9.8 mg/dL (8.4-10.2); Carbon Dioxide 23 mmol/L (22-29); Chloride 102 mmol/L (96-108); Creatinine Clr Calc Pharmacy 113.1; Estimated Glomerular Filt Rate > 60; Glucose Random 138 mg/dL (60-115); Potassium 3.8 mmol/L (3.3-5.1); Sodium 133 mmol/L (135-145); Total Protein 8.2 g/dL (6.5-8.0)
[2023-03-02 00:20] VITALS: BP 125/57; PULSE 105; RESP 18; TEMP 37.7; O2SAT 96
[2023-03-02 04:36] VITALS: BP 146/63; PULSE 106; RESP 18; TEMP 38.2; O2SAT 97
[2023-03-02 04:50] VITALS: BP 125/75; PULSE 102; RESP 20; TEMP 37.3; O2SAT 97
[2023-03-02 04:58] VITALS: PULSE 106
--- NOTE | 2023-03-02 05:01 | PC.NURSE ---
Dr. Alonzo aware of vitals/met sepsis criteria. nad. pt reports 910 KUNZ & lower back pain. resp even and unlabored. febrile 100.7F temp. pt educated on plan of care with staff medical records custodian.
--- NOTE | 2023-03-02 05:32 | ED_ITS ---
HPI - Female Genitourinary General Chief complaint: Urogenital-Female Stated complaint: Kidney pain/Diabetic/lethargic Time Seen by Provider: 03/02/23 05:13 Source: patient Mode of arrival: ambulatory Limitations: no limitations History of Present Illness HPI Narrative: With the emergency room complaining of bilateral flank pains. Patient also complaining of bilateral lower quadrant pain. Patient complaining of urinary frequency. Patient denies fever or chills. Related Data Home Medications Medication Instructions Recorded Confirmed aspirin 81 mg tablet,delayed 81 mg PO DAILY 01/09/20 09/16/22 release blood sugar diagnostic #10 ea 01/09/20 09/16/22 lancets 28 gauge #100 ea 01/09/20 09/16/22 Previous Rx's Medication Instructions Recorded lidocaine 5 % topical patch 1 patch topical DAILY pain 15 days 01/09/20 #15 ea alcohol swabs 1 pad topical .QD 90 days #100 ea 04/10/20 empagliflozin 25 mg tablet 25 mg PO DAILY 90 days #90 tabs 09/02/20 (Jardiance) lidocaine 4 % topical patch 1 patch topical BID PRN pain #30 ea 11/28/20 (Aspercreme (lidocaine)) metformin 500 mg tablet 500 mg PO BID #180 tabs 01/06/21 albuterol sulfate 90 mcg/actuation 2 puff inhalation Q6H PRN 02/23/21 aerosol inhaler (ProAir HFA) shortness of breath or wheezing #8.5 grams blood-glucose sensor (Dexcom G5-G4 #12 ea 03/05/21 Sensor device) blood-glucose transmitter (Dexcom #1 ea 03/05/21 G5 Transmitter device) gabapentin 100 mg capsule 100 mg PO BEDTIME 30 days #30 caps 03/05/21 acetaminophen 650 mg 650 mg PO Q12H PRN pain #30 tabs 03/04/22 tablet,extended release (Tylenol 8 Hour) cholecalciferol (vitamin D3) 50 50 mcg PO DAILY 90 days #90 caps 03/04/22 mcg (2,000 unit) capsule docusate sodium 100 mg capsule 100 mg PO DAILY PRN constipation 04/22/22 (Colace) 90 days #90 caps cyclobenzaprine 5 mg tablet 5 mg PO TID PRN muscle spasm #30 09/16/22 tabs amlodipine 2.5 mg tablet 2.5 mg PO DAILY #90 tabs 11/27/22 lisinopril 30 mg tablet 30 mg PO DAILY #30 tabs 11/27/22 atorvastatin 20 mg tablet 20 mg PO DAILY #90 tabs 12/24/22 potassium citrate 15 mEq (1,620 15 meq PO TID 30 days #90 tabs 02/22/23 mg) tablet,extended release cefuroxime axetil 500 mg tablet 500 mg PO BID #14 tabs 03/02/23 ketorolac 10 mg tablet 10 mg PO TID #15 tabs 03/02/23 ondansetron HCl 4 mg tablet 4 mg PO Q6H PRN nausea and 03/02/23 vomiting #14 tabs tamsulosin 0.4 mg capsule 0.4 mg PO DAILY #14 caps 03/02/23 Allergies Allergy/AdvReac Type Severity Reaction Status Date / Time No Known Allergies Allergy Verified 03/01/23 20:58 Review of Systems 2 Review of Systems: Constitutional : No Weight loss, No Fever, No Chills, No Night Sweats, No Fatigue, No Malaise ENT/Mouth : No Hearing loss, No Ear Pain, No Nasal Congestion, No Sinus Pain, No Hoarseness, No sore throat, No Rhinorrhea, No Swallowing Difficulty Eyes: No Eye Pain, No Swelling, No Redness, No Foreign Body, No Discharge, No Vision Changes Cardiovascular : No Chest Pain, No SOB, No Dyspnea on Exertion, No Orthopnea, No Edema, No Palpitations Respiratory : No Cough, No Sputum, No Wheezing, No Smoke Exposure, No Dyspnea Gastrointestinal : No Nausea, No Vomiting, No Diarrhea, No Constipation, No abdominal Pain, No Hematochezia, No Melena Genitourinary : Complaining Dysuria, No Urinary Frequency, No Hematuria, No Urinary Incontinence, No Urgency, complaining of bilateral Flank Pain, No Urinary Flow Changes, No Hesitancy Musculoskeletal : No joint pain, No Myalgias, No Joint Swelling Skin : No Skin Lesions, No rash Neuro : No Weakness, No Numbness, No Paresthesias, No Loss of Consciousness, No Dizziness, No Headache Psych : No Anxiety/Panic, No Depression, No SI/HI/AH/VH, No Social Issues, Heme/Lymph: No Bruising, No Bleeding,No Lymphadenopathy Endocrine : No Polyuria, No Polydipsia, No Temperature Intolerance PMFSH Past Medical History Onset Date is defined in the Problem List Problems that require an onset date and time if occurred within 24 hrs of arrival to the ED Aortic Dissection and Rupture; Neurologic impairment; Cardiopulmonary Arrest; Endotracheal Intubation; Insertion or Replacement of Mechanical Circulatory Assist Device Medical History Colonoscopy refused Colon cancer screening Increased abdominal girth Dizziness Breast cancer screening by mammogram Anemia History of renal calculi Type 2 diabetes mellitus with hyperglycemia Hypercholesterolemia Obesity Medullary sponge kidney Hypertension Menorrhagia Vitamin D deficiency Surgical History History of section History of laparoscopic cholecystectomy Family History Family History (Updated 11/28/20 @ 13:43 by RAIN Delong) Father Pancreatic cancer Hypertension Diabetes Mother Breast cancer Hypertension Brother Hypertension Paternal Grandfather Myocardial infarction Social History Social History Housing: House Alcohol intake: never Patient Tobacco Use Status: Never used Tobacco Smoked in Last 30 Days: No e-Cigarette/Vaping Use: Never Used Second Hand Smoke Exposure: No Use of substances other than those prescribed or required for medical reasons: No Advance Directives: No Advance Directives Information Provided: No Patient : No service: No Current occupational status: unemployed Cognitive needs: No Hearing needs: No Vision needs: No Physical Exam 2 Vital Signs: Vital Signs: Last Vital Signs Temp 99.2 F 03/02/23 04:50 Pulse 106 H 03/02/23 04:58 Resp 20 03/02/23 04:50 BP 125/75 03/02/23 04:50 Pulse Ox 97 03/02/23 04:50 O2 Del Method Room Air 03/02/23 04:50 BMI result Body Mass Index 39.0 Const: Other: Appearance: Alert. Oriented X3. Seems uncomfortable Eyes: Pupils equal, round and reactive to light. ENT: Pharynx normal. Neck: Normal inspection. Neck supple. No lymph nodes noted. No crepitus CVS: Normal heart rate and rhythm. Pulses normal. Normal S1 and S2 Respiratory: No respiratory distress. Breath sounds normal. No Wheezing. No rales Abdomen: Soft and nontender. No rigidity. No distention. Bilateral flank pain Skin: Skin warm and dry. Normal skin color. Normal skin turgor. Extremities: No lower extremity edema. No Lacerations. No Rash Neuro: Oriented X 3. No motor deficit. No sensory deficit. Moving all extremities. No slurred speech. CN 2 through 12 grossly intact Psych: calm, cooperative, normal affect Medical Decision Making Medical Decision Making [facility] Narrative: -my interpretation of labs: White blood cell count elevated 17, likely reactive leukocytosis. Possibly mild UTI, there are scant amount of white blood cell counts in the urine. Chemistry and liver function tests normal -my interpretation of CT scan there are numerous renal calculi, no obvious ureterolithiasis. -I discussed with the patient that she likely has renal colic, it is very likely that patient passed kidney stones. -patient has no fever chills, no episodes of hypotension, sepsis not suspected. Differential Diagnosis Differential Diagnoses: The differential diagnosis associated with the presentation includes (Ureterolithiasis, renal colic, UTI, pyelonephritis) Admission/Observation Consideration of admission/observation: Escalation of care including admission/observation considered (Given patient's initial presentation and history, admission was considered) Lab Data [facility] Lab Attestation statement: I reviewed the patient's lab results. 03/01/23 21:35 03/01/23 21:35 Labs: Lab Results 03/01/23 Range/Units 21:35 WBC 17.1 H (4.8-10.8) X10*3/uL RBC 4.92 (4.20-5.50) X10*6/uL Hgb 13.4 (12.0-16.0) g/dl Hct 41.5 (37.0-47.0) % MCV 84.3 (80.0-98.0) fL MCH 27.2 (27.0-33.0) pg MCHC 32.3 (31.0-35.0) g/dl RDW 13.1 (11.0-16.0) % Plt Count 310 (160-400) X10*3/uL MPV 8.7 L (9.4-12.3) fL Immature Gran % (Auto) 0.5 H (0.0-0.4) % Neut % (Auto) 86.4 H (45-73) % Lymph % (Auto) 7.7 L (20-40) % [place] % (Auto) 5.1 (2-11) % Eos % (Auto) 0.1 (0-4) % Baso % (Auto) 0.2 (0-2) % Lymph # (Auto) 1.3 (1.2-4.9) X10*3/uL [place] # (Auto) 0.9 (0.1-1.2) X10*3/uL Eos # (Auto) 0.0 (0.0-0.4) X10*3/uL Baso # (Auto) 0.0 (0.0-0.2) X10*3/uL Abs Immat Gran (auto) 0.09 H (0.00-0.03) X10*3/uL Absolute Neuts (auto) 14.7 H (2.0-8.3) x10*3/uL Absolute Nucleated RBC 0.000 (0.0-0.012) X10*3/uL Nucleated RBC % (auto) 0.0 (0.0-0.2) /100WBC Sodium 133 L (135-145) mmol/L Potassium 3.8 (3.3-5.1) mmol/L Chloride 102 (96-108) mmol/L Carbon Dioxide 23 (22-29) mmol/L Anion Gap 12 (12-20) BUN 9 (9-16) mg/dL Creatinine 0.70 (0.5-1.4) mg/dL Estim Creat Clear Calc 113.1 Estimated GFR > 60 Random Glucose 138 H (60-115) mg/dL Calcium 9.8 (8.4-10.2) mg/dL Total Bilirubin 0.6 (0.0-1.0) mg/dL AST 14 (5-31) U/L ALT 21 (0-31) U/L Alkaline Phosphatase 109 (39-117) U/L Total Protein 8.2 H (6.5-8.0) g/dL Albumin 4.4 (3.5-5.0) g/dL Urine Color Yellow Urine Appearance Clear Urine pH 8.0 (5.0-9.0) Ur Specific [place] >= 1.030 H (1.005-1.025) Urine Protein Negative (Neg-Trace) mg/dL Urine Glucose (UA) >=1000 H (Negative) mg/dL Urine Ketones Negative (Negative) mg/dL Urine Blood Small (1+) H (Negative) Urine Nitrite Negative (Negative) Ur Leukocyte Esterase Negative (Negative) Urine RBC 11-20 H (0-2) /HPF Urine WBC 6-10 H (0-5) /HPF Ur Squamous Epith Cells 0-2 (0-2) /HPF Urine Bacteria None Seen (None Seen) Hyaline Casts 0-2 (0-2) /LPF Urine Test NEGATIVE (NEGATIVE) Independent Interpretation I performed an independent interpretation of an: CT Scan Radiology Impression Discussion of test interpretation with radiology: I have reviewed the radiologist's reading. Radiologist Impression: DLP: 756 mGy-cm FINDINGS: LUNG BASES: The visualized lung bases are unremarkable. LIVER, GALLBLADDER, AND BILIARY TREE: The liver is normal in size, shape, and attenuation. No focal hepatic lesion or biliary ductal dilatation is present. There has been a prior cholecystectomy. PANCREAS: Unremarkable. SPLEEN: Unremarkable. ADRENAL GLANDS: Unremarkable. KIDNEYS AND URETERS: The kidneys are normal in size, and shape as well as overall attenuation. There are numerous bilateral renal calculi as well as calcifications within the renal pyramids. There is no hydronephrosis or hydroureter. BLADDER: Unremarkable. GASTROINTESTINAL TRACT: The small and large bowel are unremarkable. The appendix is unremarkable. ABDOMINAL WALL: No significant hernia is appreciated. LYMPH NODES: Normal. VASCULAR: Unremarkable. PELVIC VISCERA: Unremarkable. OSSEOUS STRUCTURES: Unremarkable. CT/CT abdomen pelvis wo IV con IMPRESSION: 1. Numerous bilateral renal calculi as well as calcifications within the renal pyramids, consistent with medullary nephrocalcinosis. 2. No hydronephrosis or hydroureter. Fleischner guidelines were followed. Critical Care Time Critical Care Time Critical Care Time: Yes Total Critical Care Time: 60 Attestation: I have personally provided critical care time. Time includes review of lab data, radiology results, discussion with consultants, and monitoring for potential decompensation. Intervention performed as documented. Discharge Plan Discharge Clinical Impression: Bilateral renal colic Patient Disposition: Home, Self-Care Instructions: Kidney Stones (ED) Additional Instructions: Please follow-up with your primary care physician tomorrow. If you have any worsening or new symptoms, please return to the emergency room or call 911 Prescriptions: New ketorolac 10 mg tablet 10 mg PO TID Qty: 15 0RF Rx Instructions: Do not use this medication with ibuprofen, naproxen, Aleve or any NSAIDs, only Tylenol tamsulosin 0.4 mg capsule 0.4 mg PO DAILY Qty: 14 0RF ondansetron HCl 4 mg tablet 4 mg PO Q6H PRN (Reason: nausea and vomiting) Qty: 14 0RF cefuroxime axetil 500 mg tablet 500 mg PO BID Qty: 14 0RF No Action Jardiance 25 mg tablet 25 mg PO DAILY 90 Days Qty: 90 0RF metformin 500 mg tablet 500 mg PO BID Qty: 180 2RF albuterol sulfate [ProAir HFA] 90 mcg/actuation HFA aerosol inhaler 2 puff inhalation Q6H PRN (Reason: shortness of breath or wheezing) Qty: 8.5 0RF docusate sodium [Colace] 100 mg capsule 100 mg PO DAILY PRN (Reason: constipation) 90 Days Qty: 90 3RF amlodipine 2.5 mg tablet 2.5 mg PO DAILY Qty: 90 2RF lisinopril 30 mg tablet 30 mg PO DAILY Qty: 30 9RF atorvastatin 20 mg tablet 20 mg PO DAILY Qty: 90 1RF potassium citrate 15 mEq tablet extended release 15 meq PO TID 30 Days Qty: 90 3RF alcohol swabs Pads, Medicated 1 pad topical .QD 90 Days Qty: 100 3RF lidocaine [Aspercreme (lidocaine)] 4 % adhesive patch,medicated 1 patch topical BID PRN (Reason: pain) Qty: 30 0RF aspirin 81 mg tablet,delayed release (DR/EC) 81 mg PO DAILY (DME) FreeStyle Lite Strips Strip See Rx Instructions Not Applicable DAILY Qty: 10 Rx Instructions: As directed (DME) lancets 28 gauge misc See Rx Instructions topical DAILY Qty: 100 Rx Instructions: As directed lidocaine 5 % adhesive patch,medicated 1 patch topical DAILY 15 Days Qty: 15 0RF Rx Instructions: leave on most painful area for up to 12 hrs gabapentin 100 mg capsule 100 mg PO BEDTIME 30 Days Qty: 30 4RF (DME) Dexcom G5-G4 Sensor Device See Rx Instructions .Route Qty: 12 0RF Rx Instructions: As directed (DME) Dexcom G5 Transmitter Device See Rx Instructions .Route Qty: 1 0RF Rx Instructions: As directed cholecalciferol (vitamin D3) 50 mcg (2,000 unit) capsule 50 mcg PO DAILY 90 Days Qty: 90 3RF acetaminophen [Tylenol 8 Hour] 650 mg tablet extended release 650 mg PO Q12H PRN (Reason: pain) Qty: 30 0RF cyclobenzaprine 5 mg tablet 5 mg PO TID PRN (Reason: muscle spasm) Qty: 30 0RF Stand Alone Forms: Work/School Release
[2023-03-02 05:39] LABS: Glucose, Whole Blood 132 mg/dL (60-115)
[2023-03-02] MEDS: Ketorolac Tromethamine 30 MG/ML VIAL IVPUSH (05:39)
[2023-03-02] MEDS: ondansetron HCL 4 MG/2 ML VIAL IVPUSH (05:39)
== END 2023-03-02 06:32 | disposition home or self-care (01) ==
PROVIDERS: Emergency Provider Emergency Medicine; PCP Internal Medicine
DX: N20.0 Calculus of kidney (principal); R10.30 Lower abdominal pain, unspecified; E11.9 Type 2 diabetes mellitus without complications; I10 Essential (primary) hypertension; E78.00 Pure hypercholesterolemia, unspecified; Z79.84 Long term (current) use of oral hypoglycemic drugs; Z79.02 Long term (current) use of antithrombotics/antiplatelets; Z79.899 Other long term (current) drug therapy
CPT/HCPCS: 36415; 74176; 80053; 81001; 81025; 82947; 83605; 85025; 87040; 87086; 96374; 96375; 99284; 99285; J1885; J2405

== ENCOUNTER 2023-03-31 10:03 | Outpatient (REF) | payer OTHER, SELFPAY ==
[2023-03-31 10:27] LABS: MANUAL DIFF FLAG NO
[2023-03-31 11:06] LABS: Basophils Absolute Auto 0.1 X10*3/uL (0.0-0.2); Basophils Percent Auto 0.7 % (0-2); Eosinophils Absolute Auto 0.2 X10*3/uL (0.0-0.4); Hematocrit 41.9 % (37.0-47.0); Hemoglobin 13.3 g/dl (12.0-16.0); Imm Gran Abs Auto 0.02 X10*3/uL (0.00-0.03); Imm Gran Pct Auto 0.3 % (0.0-0.4); Lymphocytes Absolute Auto 2.4 X10*3/uL (1.2-4.9); Lymphocytes Percent Auto 31.6 % (20-40); Mean Corpuscular HGB Conc 31.7 g/dl (31.0-35.0); Mean Corpuscular Hemoglobin 27.7 pg (27.0-33.0); Mean Corpuscular Volume 87.1 fL (80.0-98.0); Mean Platelet Volume 9.8 fL (9.4-12.3); Monocytes Absolute Auto 0.4 X10*3/uL (0.1-1.2); Neutrophils Absolute Auto 4.5 x10*3/uL (2.0-8.3); Neutrophils Percent Auto 60.4 % (45-73); Platelet Count 280 X10*3/uL (160-400); Red Blood Count 4.81 X10*6/uL (4.20-5.50); Red Cell Distribution Width 13.4 % (11.0-16.0); White Blood Count 7.5 X10*3/uL (4.8-10.8)
[2023-03-31 11:13] LABS: Appearance Urine Clear; Color Urine Yellow; Glucose Urine UA >=1000 mg/dL (Negative); Leukocyte Esterase Urine Negative (Negative); Nitrite Urine Negative (Negative); PH 6.5 (5.0-9.0); Specific Gravity - Urine 1.025 (1.005-1.025); UMIC TRIGGER UA YES; Urine Blood Small (1+) (Negative); Urine Ketones Negative (Negative); Urine Protein Negative (Neg-Trace)
[2023-03-31 11:14] LABS: Estimated Average Glucose 131 mg/dL; Hemoglobin A1c % 6.2 % (<6.0)
[2023-03-31 11:16] LABS: Bacteria Urine None Seen (None Seen); Hyaline Casts Urine 0-2 /LPF (0-2); WBC Urine 0-5 /HPF (0-5)
[2023-03-31 11:27] LABS: Microalbum/Creatinine Ratio Ur 38.2 ug/mg cr (<30)
[2023-03-31 11:39] LABS: Alanine Aminotransferase 39 U/L (0-31); Albumin Level 4.5 g/dL (3.5-5.0); Alkaline Phosphatase 115 U/L (39-117); Anion Gap 11 (12-20); Aspartate Amino Transferase 23 U/L (5-31); Bilirubin Total 0.5 mg/dL (0.0-1.0); Blood Urea Nitrogen 10 mg/dL (9-16); Carbon Dioxide 27 mmol/L (22-29); Chloride 104 mmol/L (96-108); Cholesterol 157 mg/dL (<200); Estimated Glomerular Filt Rate > 60; Glucose Random 115 mg/dL (60-115); HDL Cholesterol 63 mg/dL (>40); LDL Cholesterol Calculated 77 mg/dL (<100); Potassium 4.4 mmol/L (3.3-5.1); Sodium 138 mmol/L (135-145); Total Protein 8.3 g/dL (6.5-8.0); Triglycerides 89 mg/dL (<150)
[2023-03-31 11:54] LABS: Vitamin D 25-OH Total 49.1 ng/mL (>30)
[2023-03-31 12:05] LABS: Folate 13.8 ng/mL (> or = 4.0); Vitamin B12 936 pg/mL (200-900)
== END 2023-03-31 10:04 | disposition home or self-care (01) ==
LOC: HO.LAB 10:03
PROVIDERS: Visit Provider Internal Medicine
DX: E11.65 Type 2 diabetes mellitus with hyperglycemia (principal); E78.00 Pure hypercholesterolemia, unspecified; R10.9 Unspecified abdominal pain
CPT/HCPCS: 36415; 80053; 80061; 81001; 81003; 82043; 82306; 82570; 82607; 82746; 83036; 84439; 84443; 85025

== ENCOUNTER 2023-04-01 16:10 | Outpatient (AMB) | payer OTHER, SELFPAY ==
[2023-04-01 16:12] VITALS: BP 114/78; PULSE 74; O2SAT 100; BMI 37.9
--- NOTE | 2023-04-01 16:12 | A.OFFPC_ITS ---
Vital Signs 04/01/23 16:12 Height 5 ft 3 in Weight 214 lb 0.6 oz BMI 37.9 BP 114/78 Blood Pressure Location Lt brachial Position Sitting Pulse 74 Pulse Source Pulse Oximeter Pulse Oximetry (%) 100 Oxygen Delivery Method Room Air Intake Visit Reasons: PHY Intake Note: Patient is here today for a physical. Diagnostic Cardiac Sonographer Required: No Allergies No Known Allergies Allergy (Verified 04/01/23 16:13) Medication List - Last Reconciled 04/01/23 by Raj Rodsa MD acetaminophen ER (Tylenol 8 Hour) 650 mg PO Q12H PRN albuterol sulfate 90 mcg/actuation (ProAir HFA) 2 puffs inhalation Q6H PRN alcohol swabs 1 pad topical .QD 90 days amlodipine 2.5 mg PO DAILY aspirin 81 mg PO DAILY atorvastatin 20 mg PO DAILY blood sugar diagnostic As directed blood-glucose sensor (Dexcom G5-G4 Sensor device) As directed blood-glucose transmitter (Dexcom G5 Transmitter device) As directed empagliflozin (Jardiance) 25 mg PO DAILY 90 days lancets As directed lisinopril 30 mg PO DAILY metformin 500 mg PO BID Tobacco use date assessed: 04/01/23 Dental Screening Dental Screen Date: 04/01/23 Did you have a dental visit in the last 12 months?: No Did you have a dental problem in the last 6 months where you did not have access to dental care?: No HPI PHY HPI Details 48-year-old obese female with diabetes m ellitus hypercholesterolemia hypertension last seen in September 2022. Patient is here for physical exam noted mammogram due this month Cologuard negative March 2022. Review of the notes ER visit 03/02/2023 bilateral flank pains numerous bilateral renal calculi consistent with medullary nephrocalcinosis [facility] Medical History Colonoscopy refused Colon cancer screening Increased abdominal girth Dizziness Breast cancer screening by mammogram Anemia History of renal calculi Type 2 diabetes mellitus with hyperglycemia Hypercholesterolemia Obesity Medullary sponge kidney Hypertension Menorrhagia Vitamin D deficiency Surgical History History of section History of laparoscopic cholecystectomy Family History (Updated 11/28/20 @ 13:43 by RAIN Delong) Father Pancreatic cancer Hypertension Diabetes Mother Breast cancer Hypertension Brother Hypertension Paternal Grandfather Myocardial infarction Social History Housing: House Alcohol intake: never Patient Tobacco Use Status: Never used Tobacco e-Cigarette/Vaping Use: Never Used Second Hand Smoke Exposure: No service: No Current occupational status: unemployed Cognitive needs: No Hearing needs: No Vision needs: No Questionnaire PHQ-9 Over the last 2 weeks, how often have you been bothered by any of the following problems? 1. Little interest or pleasure in doing things: not at all 2. Feeling down, depressed, or hopeless: not at all 3. Trouble falling or staying asleep, or sleeping too much: not at all 4. Feeling tired or having little energy: not at all 5. Poor appetite or overeating: not at all 6. Feeling bad about yourself - or that you are a failure or have let yourself or your family down: not at all 7. Trouble concentrating on things, such as reading the newspaper or watching television: not at all 8. Moving or speaking so slowly that other people could have noticed. Or the opposite - being so fidgety or restless that you have been moving around a lot more than usual: not at all 9. Thoughts that you would be better off or of hurting yourself in some way: not at all Total score: 0 Depression Screening Interpretation: Negative Depression Screening Done: Yes Source: Developed by Drs. Ender Rosario, Gale Navarro, Alejandro Cabrera and colleagues, with an educational bing from [employer]. Thrive Questionnaire Date Thrive assessed: 03/04/22 I am a: Patient What is your living situation today?: I have a steady place to live Within the past 12 months, did the food you bought not last and you didn't have the money to get more?: Never true Within the past 12 months, did you worry whether your food would run out before you got money to buy more?: Never true Do you have trouble paying for medicines?: No Do you have trouble getting transportation to medical appointments?: No Do you have trouble paying your heating and electricity bill?: No Do you have trouble taking care of your child, family member or friend?: No Do you have trouble with day-to-day activities such as bathing, preparing meals, shopping, managing finances, etc.?: No Are you currently unemployed and looking for a job?: No Are you interested in more education?: No Please select the resources that you would like help with: None THRIVE Score: 0 AUDIT C Alcohol Use Questionnaire (AUDIT-C) 1. How often do you have a drink containing alcohol?: Never 2. How many drinks containing alcohol do you have on a typical day when you are drinking?: 1 or 2 (0) 3. How often do you have six or more drinks on one occasion?: Never Total Score: 0 ANGELA-7 AMB Questionnaire ANGELA-7 Date ANGELA - 7 assessed: 04/01/23 Feeling nervous, anxious, or on edge: 0 = Not at all Not being able to stop or control worryin = Not at all Worrying too much about different things: 0 = Not at all Trouble relaxin = Not at all Being so restless that it is hard to sit still: 0 = Not at all Becoming easily annoyed or irritable: 0 = Not at all Feeling afraid as if something awful might happen: 0 = Not at all Total ANGELA-7 score (0-4 normal; 5-9 mild; 10-14 moderate; 15-21 severe): 0 Source: Developed by Drs. Ender Rosario, Gale Navarro, Alejandro Cabrera and colleagues, with an educational bing from [employer]. Review of Systems Const Denies poor appetite and Denies weakness Eyes Denies no additional complaints ENT Reports Normal hearing present, Denies dizziness, Denies nasal congestion, Denies tinnitus and Denies sore throat Card Denies chest pain, Denies syncope, Denies rapid heart rate and Denies dyspnea Resp Denies cough and Denies dyspnea GI Denies change in stool character, Reports constipation, Denies diarrhea, Denies nausea and Denies vomiting Denies urinary frequency, Denies difficulty voiding and Denies dysuria Neuro Reports Normal hearing present, Denies confusion, Denies dizziness, Denies syncope and Denies weakness Psych Denies confusion Physical exam (Primary Care) Vital Signs: Last Vital Signs Pulse 74 04/01/23 16:12 BP 114/78 04/01/23 16:12 Pulse Ox 100 04/01/23 16:12 Oxygen Delivery Method Room Air 04/01/23 16:12 BMI result Body Mass Index 37.9 Tobacco/Smoking Status: Tobacco use Status Tobacco use date assessed 04/01/23 04/01/23 16:14 Patient Tobacco Use Status Never used Tobacco 04/01/23 16:14 e-Cigarette/Vaping Use Never Used 04/01/23 16:14 PHQ-9: PHQ-9 Score PHQ-9: Total score 0 04/01/23 16:29 Depression Screening Interpretation: Negative Thrive Assessment: Date of Thrive Assessment Date Thrive assessed 03/04/22 04/01/23 16:14 Const General: No confusion Orientation/consciousness: No confusion HENMT Head: Yes normocephalic Ears: external ears normal and TM's normal bilaterally Face and sinus: Yes normal facial exam Mouth: moist mucous membranes Throat: Yes tonsils normal Eyes Conjunctivae: conjunctivae normal Pupils: Equal, round and reactive pupils present and Pupil accommodation reflex normal Direct Ophthalmoscopy: normal light reflex Neck Neck: No lymphadenopathy Thyroid: Thyroid normal Chest Chest palpation & inspection: normal inspection of the chest Resp Effort & Inspection: normal respiratory effort and no audible wheezes Auscultation: clear to auscultation bilaterally, no crackles, no wheezes and lung sounds not diminished Cardio Rate: regular rate Rhythm: regular rhythm Peripheral pulses: radial pulses present and dorsalis pedis present GI Palpation (GI): no masses Auscultation: normal bowel sounds and normoactive bowel sounds Rectal Exam - Female: deferred Skin General skin exam: no rashes or lesions noted Rashes: no rashes Neuro General: No confusion Cranial nerves: Yes Equal, round and reactive pupils present and Yes Normal hearing present Cognition (Neuro): normal cognition Gait exam (Neuro): Normal gait present Motor exam (neuro): 5/5 motor strength present throughout Deep tendon reflexes (DTR's): Right brachioradialis reflex intensity grade: 2+, Left brachioradialis reflex intensity grade: 2+, Right patellar reflex intensity grade: 2+ and Left patellar reflex intensity grade: 2+ Extrem General: No edema Assessment and Plan Assessment & Plan (1) Annual physical exam: Code(s): Z00.00 - Encounter for general adult medical examination without abnormal findings (2) Hypertension: Code(s): I10 - Essential (primary) hypertension Qualifiers: Hypertension type: essential hypertension Qualified Code(s): I10 - Essential (primary) hypertension Plan: Continue with blood pressure medication. Decrease salt intake and exercise patient takes amlodipine 2.5 mg once a day lisinopril 30 mg once a day (3) Obesity: Code(s): E66.9 - Obesity, unspecified Qualifiers: Obesity type: due to excess calories Obesity classification: adult class 3 (BMI >= 40) Serious obesity comorbidity presence: with serious comorbidity Body mass index: BMI 40.0-44.9 Qualified Code(s): E66.01 - Morbid (severe) obesity due to excess calories; Z68.41 - Body mass index [BMI]40.0- 44.9, adult Plan: Diet and exercise (4) Hypercholesterolemia: Code(s): E78.00 - Pure hypercholesterolemia, unspecified Plan: Avoid fried foods, chicken skin, eggs, butter margarine, pastries and meat. Be it pork or beef they have a lot of cholesterol LDL goal of less than 100 and triglyceride of less than 150 patient takes atorvastatin 20 mg once a day (5) Type 2 diabetes mellitus with hyperglycemia: Code(s): E11.65 - Type 2 diabetes mellitus with hyperglycemia Qualifiers: Diabetes mellitus intermediate teacher insulin use: unspecified intermediate teacher insulin use status Qualified Code(s): E11.65 - Type 2 diabetes mellitus with hyperglycemia Plan: Decrease the amount of carbohydrate intake, pasta, bread, rice and potatoes are all sugar and that is aside from all the sweet stuff, remember that fruits are good but they are Sweet also. Hemoglobin A1c goal of less than 6.5. Patient is on Jardiance 25 mg once a day and metformin 500 mg twice a day (6) Nephrocalcinosis: Code(s): E83.59 - Other disorders of calcium metabolism; N29 - Other disorders of kidney and ureter in diseases classified elsewhere Plan: Will referral to Nephrology. Discontinue vitamin-D. has a schedule with renal doctor April, Orders: Referrals Ophthalmology Referral E11.65 - Type 2 diabetes mellitus with hyperglycemia Medications: New blood sugar diagnostic (FreeStyle Lite Strips) As directed check the BS QD 100 ea 3RF .65 - Type 2 diabetes mellitus with hyperglycemia blood-glucose meter (FreeStyle Lite Meter kit) As directed 1 ea 0RF .65 - Typ e 2 diabetes mellitus with hyperglycemia lancets (FreeStyle Lancets) As directed check BS QD 100 ea 3RF E11.65 - Type 2 diabetes mellitus with hyperglycemia Refilled albuterol sulfate 90 mcg/actuation (ProAir HFA) 2 puffs inhalation Q6H PRN 8.5 grams 0RF shortness of breath or wheezing E11.65 - Type 2 diabetes mellitus with hyperglycemia Discontinued blood-glucose transmitter (Dexcom G5 Transmitter device) Discontinued Reason: Insurance Denied As directed 1 ea 0RF E11.65 - Type 2 diabetes mellitus with hyperglycemia blood-glucose sensor (Dexcom G5-G4 Sensor device) Discontinued Reason: Insurance Denied As directed 12 ea 0RF E11.65 - Type 2 diabetes mellitus with hyperglycemia Coding Level of Care Code Est Pt Prev Care 40-64y(74594) Diagnoses Annual physical exam Z00.00 Essential hypertension I10 Hypertension type: essential hypertension Class 3 severe obesity due to excess calories with serious comorbidity and body mass index (BMI) of 40.0 to 44.9 in adult E66.01; Z68.41 Obesity type: due to excess calories Obesity classification: adult class 3 (BMI >= 40) Serious obesity comorbidity presence: with serious comorbidity Body mass index: BMI 40.0-44.9 Hypercholesterolemia E78.00 Type 2 diabetes mellitus with hyperglycemia, unspecified whether intermediate teacher insulin use E11.65 Diabetes mellitus half-way insulin use: unspecified half-way insulin use status Nephrocalcinosis E83.59; N29
== END 2023-04-01 17:27 | disposition home or self-care (01) ==
PROVIDERS: PCP Internal Medicine; Visit Provider Internal Medicine
DX: Z00.00 Encounter for general adult medical examination without abnormal findings (principal); E66.01 Morbid (severe) obesity due to excess calories; E11.65 Type 2 diabetes mellitus with hyperglycemia; Z68.41 Body mass index [BMI] 40.0-44.9, adult; I10 Essential (primary) hypertension; E78.00 Pure hypercholesterolemia, unspecified; E83.59 Other disorders of calcium metabolism; N29 Other disorders of kidney and ureter in diseases classified elsewhere
CPT/HCPCS: 99396

== ENCOUNTER 2023-05-19 11:42 | Outpatient (REF) | payer OTHER, SELFPAY | END 2023-05-19 11:43 | disposition home or self-care (01) | LOC: HO.MAMMO 11:42 | PROVIDERS: PCP Internal Medicine; Visit Provider Internal Medicine | DX: Z12.31 Encounter for screening mammogram for malignant neoplasm of breast (principal) | CPT/HCPCS: 77063; 77067 ==

== ENCOUNTER → 2023-05-19 12:30 | Outpatient (BNV) | payer OTHER, SELFPAY | PROVIDERS: PCP Internal Medicine; Visit Provider Radiology Diagnostic Radiology | DX: Z12.31 Encounter for screening mammogram for malignant neoplasm of breast (principal) | CPT/HCPCS: 77063; 77067 ==

== ENCOUNTER 2023-06-30 15:28 | Outpatient (AMB) | payer OTHER, SELFPAY ==
[2023-06-30 15:31] VITALS: BP 116/84; PULSE 67; O2SAT 98; BMI 38.3
--- NOTE | 2023-06-30 15:31 | A.OFFPC_ITS ---
Vital Signs 06/30/23 15:31 Height 5 ft 3 in Weight 216 lb BMI 38.3 BP 116/84 Blood Pressure Location Lt brachial Position Sitting Pulse 67 Pulse Source Pulse Oximeter Pulse Oximetry (%) 98 Oxygen Delivery Method Room Air Intake Visit Reasons: DM , nephrocalcinosis Intake Note: Patient is here to follow up on DM, nephrocalcinosis Quality System Manager Required: No Allergies No Known Allergies Allergy (Verified 06/30/23 15:31) Medication List - Last Reconciled 06/30/23 by Raj Rodas MD acetaminophen ER (Tylenol 8 Hour) 650 mg PO Q12H PRN albuterol sulfate 90 mcg/actuation (ProAir HFA) 2 puffs inhalation Q6H PRN alcohol swabs 1 pad topical .QD 90 days amlodipine 2.5 mg PO DAILY atorvastatin 20 mg PO DAILY blood sugar diagnostic As directed blood sugar diagnostic (FreeStyle Lite Strips) As directed check the BS QD blood-glucose meter (FreeStyle Lite Meter kit) As directed empagliflozin (Jardiance) 25 mg PO DAILY 90 days lancets As directed lancets (FreeStyle Lancets) As directed check BS QD lisinopril 30 mg PO DAILY metformin 500 mg PO BID Tobacco use date assessed: 06/30/23 Dental Screening Dental Screen Date: 04/01/23 HPI DM , nephrocalcinosis HPI Details 48-year-old obese female with hypertensi on hypercholesterolemia diabetes mellitus nephrocalcinosis referred to Urology.. Last seen in March 2023. Patient's mammogram is up-to-date Cologuard test up-to-date review of the notes has seen Nephrology in April diagnosis of medullary sponge kidney renal calculi hyponatremia and was advised blood work. Stable creatinine advised to restrict oral fluids. Patient also had an ER visit in March [facility] had fever and muscle aches with little shortness of breath patient was hydrated diagnosis of viral syndrome. [facility] Medical History (Updated 06/30/23 @ 16:46 by Raj Rodas MD) Colonoscopy refused Colon cancer screening Increased abdominal girth Dizziness Breast cancer screening by mammogram Anemia History of renal calculi Type 2 diabetes mellitus with hyperglycemia Hypercholesterolemia Obesity Medullary sponge kidney Hypertension Menorrhagia Vitamin D deficiency Surgical History History of section History of laparoscopic cholecystectomy Family History (Updated 11/28/20 @ 13:43 by RAIN Delong) Father Pancreatic cancer Hypertension Diabetes Mother Breast cancer Hypertension Brother Hypertension Paternal Grandfather Myocardial infarction Social History Housing: House Alcohol intake: never Patient Tobacco Use Status: Never used Tobacco e-Cigarette/Vaping Use: Never Used Second Hand Smoke Exposure: No service: No Current occupational status: unemployed Cognitive needs: No Hearing needs: No Vision needs: No Questionnaire Thrive Questionnaire Date Thrive assessed: 03/04/22 AUDIT C Alcohol Use Questionnaire (AUDIT-C) 1. How often do you have a drink containing alcohol?: Never 2. How many drinks containing alcohol do you have on a typical day when you are drinking?: 1 or 2 (0) 3. How often do you have six or more drinks on one occasion?: Never Total Score: 0 ANGELA-7 AMB Questionnaire ANGELA-7 Date ANGELA - 7 assessed: 04/01/23 Source: Developed by Drs. Ender Rosario, Gale Navarro, Alejandro Cabrera and colleagues, with an educational bnig from [employer]. Physical exam (Primary Care) Vital Signs: Last Vital Signs Pulse 67 06/30/23 15:31 BP 116/84 06/30/23 15:31 Pulse Ox 98 06/30/23 15:31 Oxygen Delivery Method Room Air 06/30/23 15:31 BMI result Body Mass Index 38.3 Tobacco/Smoking Status: Tobacco use Status Tobacco use date assessed 06/30/23 06/30/23 15:32 Patient Tobacco Use Status Never used Tobacco 06/30/23 15:32 e-Cigarette/Vaping Use Never Used 06/30/23 15:32 Thrive Assessment: Date of Thrive Assessment Date Thrive assessed 03/04/22 06/30/23 15:32 Const General: alert; No acute distress Eyes Conjunctivae: conjunctivae normal Resp Auscultation: clear to auscultation bilaterally Cardio Rate: regular rate Rhythm: regular rhythm GI Inspection: Yes normal to inspection Extrem General: Yes normal to inspection and No edema Results AMB Hemoglobin A1c AMB Hemoglobin A1c 6.3 % Last Edit by RAIN De Jesus on 06/30/23 16:24 Results Reviewed Results Reviewed: Laboratory Last Values Hgb A1c (Clinic) 6.3 % (4.0-6.0) H 06/30/23 15:33 Assessment and Plan Assessment & Plan (1) Type 2 diabetes mellitus with hyperglycemia: Comment: [place] 06/2023 [facility] [address] [facility] [address] [id number] Code(s): E11.65 - Type 2 diabetes mellitus with hyperglycemia Qualifiers: Diabetes mellitus laborer marine terminal insulin use: unspecified penitentiary insulin use status Qualified Code(s): E11.65 - Type 2 diabetes mellitus with hyperglycemia Plan: Decrease the amount of carbohydrate intake, pasta, bread, rice and potatoes are all sugar and that is aside from all the sweet stuff, remember that fruits are good but they are Sweet also. Hemoglobin A1c goal of less than 6.5. Patient on metformin 500 mg twice a day and the Jardiance 25 mg once a day (2) Obesity: Code(s): E66.9 - Obesity, unspecified Qualifiers: Obesity type: due to excess calories Obesity classification: adult class 3 (BMI >= 40) Serious obesity comorbidity presence: with serious comorbidity Body mass index: BMI 40.0-44.9 Qualified Code(s): E66.01 - Morbid (severe) obesity due to excess calories; Z68.41 - Body mass index [BMI]40.0-44.9 , adult Plan: Diet and exercise (3) Hypertension: Code(s): I10 - Essential (primary) hypertension Qualifiers: Hypertension type: essential hypertension Qualified Code(s): I10 - Essential (primary) hypertension Plan: Continue with blood pressure medication. Decrease salt intake and exercise presently on lisinopril 30 mg once a day amlodipine 2.5 mg once a day (4) Hypercholesterolemia: Code(s): E78.00 - Pure hypercholesterolemia, unspecified Plan: Avoid fried foods, chicken skin, eggs, butter margarine, pastries and meat. Be it pork or beef they have a lot of cholesterol LDL goal of less than 100 and triglyceride of less than 150 on atorvastatin 20 mg once a day (5) Medullary sponge kidney: Comment: Dr. Judd Code(s): Q61.5 - Medullary cystic kidney Plan: Patient continues to follow-up with Nephrology Orders: Orders AMB Hemoglobin A1c Today E11.65 - Type 2 diabetes mellitus with hyperglycemia Referrals Dermatology Referral L65.9 - Nonscarring hair loss, unspecified Medications: New blood pressure monitor (Blood Pressure Kit) As directed 1 ea 0RF I10 - Essential (primary) hypertension biotin 1 mg PO DAILY 30 caps 0RF L65.9 - Nonscarring hair loss, unspecified Coding Level of Care Code Est Pt Level 4 (62283) Diagnoses Type 2 diabetes mellitus with hyperglycemia, unspecified whether penitentiary insulin use E11.65 Diabetes mellitus penitentiary insulin use: unspecified penitentiary insulin use status Class 3 severe obesity due to excess calories with serious comorbidity and body mass index (BMI) of 40.0 to 44.9 in adult E66.01; Z68.41 Obesity type: due to excess calories Obesity classification: adult class 3 (BMI >= 40) Serious obesity comorbidity presence: with serious comorbidity Body mass index: BMI 40.0-44.9 Essential hypertension I10 Hypertension type: essential hypertension Hypercholesterolemia E78.00 Medullary sponge kidney Q61.5
== END 2023-06-30 16:58 | disposition home or self-care (01) ==
PROVIDERS: PCP Internal Medicine; Visit Provider Internal Medicine
DX: E11.65 Type 2 diabetes mellitus with hyperglycemia (principal); E66.01 Morbid (severe) obesity due to excess calories; Z68.41 Body mass index [BMI] 40.0-44.9, adult; I10 Essential (primary) hypertension; E78.00 Pure hypercholesterolemia, unspecified; Q61.5 Medullary cystic kidney
CPT/HCPCS: 83036; 99214

== ENCOUNTER 2023-11-01 15:00 | Emergency (ER) | payer OTHER, SELFPAY ==
--- NOTE | ~2023-11-01 | CT_ITS ---
EXAMINATION: CT ABDOMEN AND PELVIS WITHOUT CONTRAST (STONE STUDY) CLINICAL INFORMATION: Right flank pain COMPARISON: Portions of the previous CT 03/02/23 TECHNIQUE: Helical scanning was performed with collimation through the abdomen and pelvis using the low-dose CT stone study protocol. No contrast. DLP: 748 mGy-cm. FINDINGS: Liver: No suspicious focal liver lesion Biliary tree: There are surgical clips in the expected region of the gallbladder. Spleen: Spleen is not enlarged. No focal abnormality. Adrenal glands: No suspicious abnormality Kidneys: There is no dilation of the urinary collecting system. There are numerous poorly defined calcifications scattered throughout both kidneys. These include the region of the renal pyramids. Pattern suggests medullary nephrocalcinosis. There is no definite opaque ureteral calculus. No perinephric stranding. Urinary bladder: There is no suspicious focal abnormality. GI tract: There is gas and fecal residue throughout the colon. No localized colonic wall thickening or pericolonic fat stranding. No CT evidence of acute appendicitis. No significant small bowel dilation. No suspicious abnormality the stomach. Pelvic viscera: There is an IUD present. There is no suspicious adnexal mass. There is some gas in the region of the vaginal fornices. Abdominal wall: No abdominal wall hernia demonstrated. There is eventration of the midline abdominal wall fascia. Vascular: No abdominal aortic aneurysm. Lymph nodes: There are no enlarged lymph nodes. There is no significant free intraperitoneal fluid. MUSCULOSKELETAL: No suspicious focal lesion Visualized lower chest: No suspicious abnormality demonstrated CT/CT abdomen pelvis wo IV con IMPRESSION: Medullary nephrocalcinosis. No definite urinary obstruction. IUD present. Electronically signed by: Sony Kimball MD 11/01/2023 05:51 PM EDT
[2023-11-01 15:09] VITALS: BP 124/77; PULSE 90; RESP 18; TEMP 36.8; O2SAT 100; BMI 38.3
--- NOTE | 2023-11-01 15:09 | ED_ITS ---
HPI - Abdominal Pain General Chief Complaint: Abdominal Pain Stated Complaint: Flank pain Time Seen by Provider: 11/01/23 18:23 Source: patient, RN notes reviewed, old records reviewed and sports management professor Mode of arrival: ambulatory Limitations: language barrier History of Present Illness ED Provider: Araseli HPI narrative: 48-year-old female with past medical history significant for obstructive uropathy, fatty liver, type 2 diabetes, obesity, hyperlipidemia, hypertension presents for evaluation of right flank pain. Patient reports that she has had flank pain for at least the last 2 weeks. She denies any urinary frequency ?unless I drink a lot of water. ? She denies any foul-smelling odor or burning with urination. Denies any blood in the urine. She reports a history of kidney stones and is concerned that she has 1 now. Her pain is currently better than it was earlier today, she describes it as a 5/10, stabbing Her pain is worse with movement or by touching the area of her right flank Denies any falls, heavy lifting or trauma to the area She sees a urologist? on [address] in [place]. ? Related Data Home Medications ?Medication ?Instructions ?Recorded ?Confirmed blood sugar diagnostic #10 ea 01/09/20 06/30/23 lancets 28 gauge #100 ea 01/09/20 06/30/23 Previous Rx's ?Medication ?Instructions ?Recorded alcohol swabs 1 pad topical .QD 90 days #100 ea 04/10/20 empagliflozin 25 mg tablet 25 mg PO DAILY 90 days #90 tabs 09/02/20 (Jardiance) metformin 500 mg tablet 500 mg PO BID #180 tabs 01/06/21 acetaminophen 650 mg 650 mg PO Q12H PRN pain #30 tabs 03/04/22 tablet,extended release (Tylenol 8 Hour) lisinopril 30 mg tablet 30 mg PO DAILY #30 tabs 03/24/23 atorvastatin 20 mg tablet 20 mg PO DAILY #90 tabs 03/25/23 blood sugar diagnostic (FreeStyle #100 ea 04/01/23 Lite Strips) blood-glucose meter (FreeStyle #1 ea 04/01/23 Lite Meter kit) lancets 28 gauge (FreeStyle #100 ea 04/01/23 Lancets) blood pressure monitor (Blood #1 ea 06/30/23 Pressure Kit) albuterol sulfate 90 mcg/actuation 2 puff inhalation Q6H PRN 07/14/23 aerosol inhaler (ProAir HFA) shortness of breath or wheezing #8.5 grams potassium citrate 15 mEq (1,620 15 meq PO TID 30 days #90 tabs 07/20/23 mg) tablet,extended release amlodipine 2.5 mg tablet 2.5 mg PO DAILY #90 tabs 08/21/23 biotin 1 mg capsule 1 mg PO DAILY #90 caps 09/28/23 cyclobenzaprine 10 mg tablet 10 mg PO TID PRN muscle spasm #15 11/01/23 tabs Allergies Allergy/AdvReac Type Severity Reaction Status Date / Time No Known Allergies Allergy Verified 11/01/23 15:13 Review of Systems Constitutional: Denies body ache(s), Denies chills and Denies headache(s) Eyes: Denies blurry vision Denies headache(s) and Denies sore throat Cardiovascular: Denies chest pain and Denies dyspnea Respiratory: Denies cough and Denies dyspnea Gastrointestinal: Denies abdominal pain, Denies nausea and Denies vomiting Genitourinary: Denies hematuria, Denies difficulty voiding, Denies dysuria and Denies pelvic pain Musculoskeletal: Reports back pain and Reports stiffness Skin/Breast: Denies rash Denies headache(s) [facility] Past Medical History Medical History (Updated 11/01/23 @ 18:48 by Jean Marx) Colonoscopy refused Colon cancer screening Increased abdominal girth Dizziness Breast cancer screening by mammogram Anemia History of renal calculi Type 2 diabetes mellitus with hyperglycemia Hypercholesterolemia Obesity Medullary sponge kidney Hypertension Menorrhagia Vitamin D deficiency Surgical History History of section History of laparoscopic cholecystectomy Family History Family History (Updated 11/28/20 @ 13:43 by RAIN Delong) Father Pancreatic cancer Hypertension Diabetes Mother Breast cancer Hypertension Brother Hypertension Paternal Grandfather Myocardial infarction Social History Social History Housing: House Alcohol intake: never Patient Tobacco Use Status: Never used Tobacco e-Cigarette/Vaping Use: Never Used Second Hand Smoke Exposure: No Advance Directives: No Advance Directives Information Provided: No service: No Current occupational status: unemployed Cognitive needs: No Hearing needs: No Vision needs: No Physical Exam ED Vital Signs: Vital Signs - 24 hr 11/01/23 15:09 Temperature 98.2 F Pulse Rate 90 Respiratory Rate 18 Blood Pressure 124/77 Pulse Oximetry 100 Oxygen Delivery Method Room Air BMI result Body Mass Index 38.3 Const General: healthy appearing, comfortable, no acute distress, alert and awake Nutritional Appearance: well nourished Orientation/consciousness: patient oriented x3 HENMT Head: Yes normocephalic and Yes atraumatic Eyes Eyelids: Yes eyelids normal Conjunctivae: conjunctivae normal Sclerae: sclerae normal Corneas: corneas normal Pupils: Equal, round and reactive pupils present EOM: EOMs intact bilaterally Neck Neck: Yes full ROM Resp Effort & Inspection: normal respiratory effort, able to speak in complete sentences and not labored GI Inspection: No distended Palpation (GI): Soft to palpation, not firm, nontender, no guarding and not rigid Back/Spine/Pelvis Other: Patient has tenderness in the right lumbar paraspinous region. No vertebral tenderness, no step-off deformities. Skin General skin exam: elasticity normal Neuro General: patient oriented x3 Cranial nerves: Yes Equal, round and reactive pupils present and Yes Bilaterally intact EOM present Cognition (Neuro): normal cognition Extrem Other: Moving all extremities well without any obvious deformities Course Course Course Narrative: This is a Rapid Medical Examination (RME) performed by Maci Porter PA-C in triage. Full HPI, ROS, assessment and treatment plan per primary provider in the Main ED. 48 yo [place] speaking female with history of HTN, HLD, diabetes, who presents to the ER for evaluation of 1 week of right flank pain. Intermittently radiates to the front of her abdomen. No associated nausea, vomiting, diarrhea. She reports urinary frequency but no blood in her urine or dysuria. Plan: Lab workup, urinalysis, CT scan Medical Decision Making Medical Decision Making MDM Narrative: 48-year-old female with past medical history as documented above presents for evaluation of flank pain. Her pain is reproducible on exam, she has no abdominal pain or tenderness, she has no symptoms. She had a CT scan ordered in triage that shows medullary nephrocalcinosis, no obvious obstructive uropathy. She has no GI symptoms, no labs are reassuring. The patient has both white cells and red cells in her urine with no bacteria seen. There are no nitrites either. I discussed possible treatment with antibiotics the patient would prefer to follow up with the urologist as she states that she has an appointment by the end of the month. Her pain is likely musculoskeletal in origin given the negative workup and reassuring exam. We will treat with cyclobenzaprine Differential Diagnosis Differential Diagnoses: The differential diagnosis associated with the presentation includes Muscle strain Obstructive uropathy Pyelonephritis UTI Lab Data MDM Lab Attestation statement: I reviewed the patient's lab results. No leukocytosis or anemia. Normal platelet count. No significant electrolyte abnormalities. Urinalysis shows hematuria, white cells in the urine with trace esterase, no bacteria or nitrites. Nondiagnostic 11/01/23 15:36 11/01/23 15:36 Labs: Lab Results 11/01/23 Range/Units 15:36 WBC 8.0 (4.8-10.8) X10*3/uL RBC 4.72 (4.20-5.50) X10*6/uL Hgb 13.1 (12.0-16.0) g/dl Hct 41.3 (37.0-47.0) % MCV 87.5 (80.0-98.0) fL MCH 27.8 (27.0-33.0) pg MCHC 31.7 (31.0-35.0) g/dl RDW 13.4 (11.0-16.0) % Plt Count 269 (160-400) X10*3/uL MPV 9.2 L (9.4-12.3) fL Immature Gran % (Auto) 0.2 (0.0-0.4) % Neut % (Auto) 55.0 (45-73) % Lymph % (Auto) 34.6 (20-40) % [place] % (Auto) 7.1 (2-11) % Eos % (Auto) 2.2 (0-4) % Baso % (Auto) 0.9 (0-2) % Lymph # (Auto) 2.8 (1.2-4.9) X10*3/uL [place] # (Auto) 0.6 (0.1-1.2) X10*3/uL Eos # (Auto) 0.2 (0.0-0.4) X10*3/uL Baso # (Auto) 0.1 (0.0-0.2) X10*3/uL Abs Immat Gran (auto) 0.02 (0.00-0.03) X10*3/uL Absolute Neuts (auto) 4.4 (2.0-8.3) x10*3/uL Absolute Nucleated RBC 0.000 (0.0-0.012) X10*3/uL Nucleated RBC % (auto) 0.0 (0.0-0.2) /100WBC Sodium 141 (135-145) mmol/L Potassium 4.1 (3.3-5.1) mmol/L Chloride 106 (96-108) mmol/L Carbon Dioxide 28 (22-29) mmol/L Anion Gap 11 L (12-20) BUN 18 H (9-16) mg/dL Creatinine 0.72 (0.5-1.4) mg/dL Estim Creat Clear Calc 109.0 Estimated GFR > 60 Random Glucose 115 (60-115) mg/dL Calcium 9.8 (8.4-10.2) mg/dL Magnesium 2.1 (1.6-2.6) mg/dL Total Bilirubin 0.5 (0.0-1.0) mg/dL Direct Bilirubin 0.2 (0.0-0.5) mg/dL AST 12 (5-31) U/L ALT 15 (0-31) U/L Alkaline Phosphatase 113 (39-117) U/L Total Protein 7.7 (6.5-8.0) g/dL Albumin 4.2 (3.5-5.0) g/dL Urine Color Yellow Urine Appearance Clear Urine pH 8.5 (5.0-9.0) Ur Specific [place] >= 1.030 H (1.005-1.025) Urine Protein Negative (Neg-Trace) mg/dL Urine Glucose (UA) >=1000 H (Negative) mg/dL Urine Ketones Negative (Negative) mg/dL Urine Blood Trace H (Negative) Urine Nitrite Negative (Negative) Ur Leukocyte Esterase Trace H (Negative) Urine RBC 11-20 H (0-2) /HPF Urine WBC 11-20 H (0-5) /HPF Ur Squamous Epith Cells 0-2 (0-2) /HPF Urine Bacteria None Seen (None Seen) Hyaline Casts 0-2 (0-2) /LPF Independent Interpretation I performed an independent interpretation of an: CT Scan (Agree with Radiology interpretation, no obstructive uropathy or hydronephrosis) Radiology Impression Discussion of test interpretation with radiology: I have reviewed the radiologist's reading. Radiologist Impression: FINDINGS: Liver: No suspicious focal liver lesion Biliary tree: There are surgical clips in the expected region of the gallbladder. Spleen: Spleen is not enlarged. No focal abnormality. Adrenal glands: No suspicious abnormality Kidneys: There is no dilation of the urinary collecting system. There are numerous poorly defined calcifications scattered throughout both kidneys. These include the region of the renal pyramids. Pattern suggests medullary nephrocalcinosis. There is no definite opaque ureteral calculus. No perinephric stranding. Urinary bladder: There is no suspicious focal abnormality. GI tract: There is gas and fecal residue throughout the colon. No localized colonic wall thickening or pericolonic fat stranding. No CT evidence of acute appendicitis. No significant small bowel dilation. No suspicious abnormality the stomach. Pelvic viscera: There is an IUD present. There is no suspicious adnexal mass. There is some gas in the region of the vaginal fornices. Abdominal wall: No abdominal wall hernia demonstrated. There is eventration of the midline abdominal wall fascia. Vascular: No abdominal aortic aneurysm. Lymph nodes: There are no enlarged lymph nodes. There is no significant free intraperitoneal fluid. MUSCULOSKELETAL: No suspicious focal lesion Visualized lower chest: No suspicious abnormality demonstrated CT/CT abdomen pelvis wo IV con IMPRESSION: Medullary nephrocalcinosis. No definite urinary obstruction. IUD present. Discharge Plan Discharge Clinical Impression: Right flank pain Patient Disposition: Home, Self-Care Instructions: Flank Pain (ED) Additional Instructions: Your CT scan did not show any obvious kidney stones. Your symptoms may be muscular in nature. Follow-up with your primary doctor as well as your urologist. You may use cyclobenzaprine as needed for muscle spasms. This may make you drowsy, do not drink alcohol or drive after taking it Prescriptions: New cyclobenzaprine 10 mg tablet 10 mg PO TID PRN (Reason: muscle spasm) Qty: 15 0RF No Action Jardiance 25 mg tablet 25 mg PO DAILY 90 Days Qty: 90 0RF metformin 500 mg tablet 500 mg PO BID Qty: 180 2RF lisinopril 30 mg tablet 30 mg PO DAILY Qty: 30 9RF atorvastatin 20 mg tablet 20 mg PO DAILY Qty: 90 1RF albuterol sulfate [ProAir HFA] 90 mcg/actuation HFA aerosol inhaler 2 puff inhalation Q6H PRN (Reason: shortness of breath or wheezing) Qty: 8.5 0RF potassium citrate 15 mEq tablet extended release 15 meq PO TID 30 Days Qty: 90 3RF amlodipine 2.5 mg tablet 2.5 mg PO DAILY Qty: 90 2RF biotin 1 mg capsule 1 mg PO DAILY Qty: 90 2RF alcohol swabs Pads, Medicated 1 pad topical .QD 90 Days Qty: 100 3RF (DME) FreeStyle Lite Strips Strip See Rx Instructions Not Applicable DAILY Qty: 10 Rx Instructions: As directed (DME) lancets 28 gauge misc See Rx Instructions topical DAILY Qty: 100 Rx Instructions: As directed acetaminophen [Tylenol 8 Hour] 650 mg tablet extended release 650 mg PO Q12H PRN (Reason: pain) Qty: 30 0RF (DME) FreeStyle Lite Strips Strip See Rx Instructions .ROUTE .MEDSUPPLY Qty: 100 3RF Rx Instructions: As directed check the BS QD (DME) blood-glucose meter [FreeStyle Lite Meter] Kit See Rx Instructions .ROUTE .MEDSUPPLY Qty: 1 0RF Rx Instructions: As directed (DME) lancets [FreeStyle Lancets] 28 gauge misc See Rx Instructions .ROUTE .MEDSUPPLY Qty: 100 3RF Rx Instructions: As directed check BS QD (DME) blood pressure monitor [Blood Pressure Kit] Kit See Rx Instructions .ROUTE .MEDSUPPLY Qty: 1 0RF Rx Instructions: As directed Interventions: ED Discharge Assessment Last Done: 11/01/23 18:55 Print Language: Anguill[place]
[2023-11-01 15:43] LABS: MANUAL DIFF FLAG NO
[2023-11-01 15:45] LABS: Basophils Absolute Auto 0.1 X10*3/uL (0.0-0.2); Basophils Percent Auto 0.9 % (0-2); Eosinophils Absolute Auto 0.2 X10*3/uL (0.0-0.4); Eosinophils Percent Auto 2.2 % (0-4); Hematocrit 41.3 % (37.0-47.0); Hemoglobin 13.1 g/dl (12.0-16.0); Imm Gran Abs Auto 0.02 X10*3/uL (0.00-0.03); Imm Gran Pct Auto 0.2 % (0.0-0.4); Lymphocytes Absolute Auto 2.8 X10*3/uL (1.2-4.9); Lymphocytes Percent Auto 34.6 % (20-40); Mean Corpuscular HGB Conc 31.7 g/dl (31.0-35.0); Mean Corpuscular Hemoglobin 27.8 pg (27.0-33.0); Mean Corpuscular Volume 87.5 fL (80.0-98.0); Mean Platelet Volume 9.2 fL (9.4-12.3); Monocytes Absolute Auto 0.6 X10*3/uL (0.1-1.2); Monocytes Percent Auto 7.1 % (2-11); Neutrophils Absolute Auto 4.4 x10*3/uL (2.0-8.3); Platelet Count 269 X10*3/uL (160-400); Red Blood Count 4.72 X10*6/uL (4.20-5.50); Red Cell Distribution Width 13.4 % (11.0-16.0)
[2023-11-01 15:47] LABS: Appearance Urine Clear; Color Urine Yellow; Glucose Urine UA >=1000 mg/dL (Negative); Leukocyte Esterase Urine Trace (Negative); Nitrite Urine Negative (Negative); PH 8.5 (5.0-9.0); Specific Gravity - Urine >= 1.030 (1.005-1.025); UMIC TRIGGER UACC YES; Urine Blood Trace (Negative); Urine Ketones Negative (Negative); Urine Protein Negative (Neg-Trace)
[2023-11-01 15:59] LABS: Alanine Aminotransferase 15 U/L (0-31); Albumin Level 4.2 g/dL (3.5-5.0); Alkaline Phosphatase 113 U/L (39-117); Anion Gap 11 (12-20); Aspartate Amino Transferase 12 U/L (5-31); Bilirubin Direct 0.2 mg/dL (0.0-0.5); Bilirubin Total 0.5 mg/dL (0.0-1.0); Blood Urea Nitrogen 18 mg/dL (9-16); Calcium 9.8 mg/dL (8.4-10.2); Carbon Dioxide 28 mmol/L (22-29); Chloride 106 mmol/L (96-108); Estimated Glomerular Filt Rate > 60; Glucose Random 115 mg/dL (60-115); Magnesium 2.1 mg/dL (1.6-2.6); Potassium 4.1 mmol/L (3.3-5.1); Sodium 141 mmol/L (135-145); Total Protein 7.7 g/dL (6.5-8.0)
[2023-11-01 16:16] LABS: Bacteria Urine None Seen (None Seen); Hyaline Casts Urine 0-2 /LPF (0-2); Squamous Epithelial Cell Urine 0-2 /HPF (0-2); UACC Culture Trigger YES
[2023-11-01 18:55] VITALS: BP 121/84; PULSE 82; RESP 18; TEMP 37; O2SAT 100
== END 2023-11-01 18:58 | disposition home or self-care (01) ==
PROVIDERS: Physician Assistant; Emergency Provider Emergency Medicine; PCP Internal Medicine
DX: R10.31 Right lower quadrant pain (principal); Z79.899 Other long term (current) drug therapy
CPT/HCPCS: 36415; 74176; 80048; 80076; 81001; 83735; 85025; 87086; 87088; 87186; 99282; 99284

== ENCOUNTER 2023-12-13 10:19 | Outpatient (AMB) | payer OTHER, SELFPAY ==
--- NOTE | 2023-12-13 10:29 | MHC.PC.OV ---
Vital Signs 12/13/23 10:31 Height 5 ft 3 in Weight 213 lb 0.8 oz BMI 37.7 BP 124/72 Blood Pressure Location Lt brachial Position Sitting Pulse 75 Pulse Source Pulse Oximeter Pulse Oximetry (%) 98 Oxygen Delivery Method Room Air Intake Visit Reasons: 3 m/f Diabetes Allergies No Known Allergies Allergy (Verified 11/01/23 15:13) Tobacco use date assessed: 06/30/23 Dental Screening Dental Screen Date: 04/01/23 HPI 3 m/f Diabetes HPI Details 48-year-old obese female with diabetes mellitus hypertension hypercholesterolemia coming in for follow-up. Last seen in June 2023. Patient's mammograms up-to-date Cologuard test is up-to-date. Review of the notes [id number] discharge note received [facility] Medical History (Updated 11/02/23 @ 00:01 by Juju Bowman) Colonoscopy refused Colon cancer screening Increased abdominal girth Dizziness Breast cancer screening by mammogram Anemia History of renal calculi Type 2 diabetes mellitus with hyperglycemia Hypercholesterolemia Obesity Medullary sponge kidney Hypertension Menorrhagia Vitamin D deficiency Surgical History History of section History of laparoscopic cholecystectomy Family History (Updated 11/28/20 @ 13:43 by RAIN Delong) Father Pancreatic cancer Hypertension Diabetes Mother Breast cancer Hypertension Brother Hypertension Paternal Grandfather Myocardial infarction Social History Housing: House Alcohol intake: never Patient Tobacco Use Status: Never used Tobacco e-Cigarette/Vaping Use: Never Used Second Hand Smoke Exposure: No service: No Current occupational status: unemployed Cognitive needs: No Hearing needs: No Vision needs: No Questionnaire Thrive Questionnaire Date Thrive assessed: 03/04/22 Are you currently unemployed and looking for a job?: I choose not to answer this question AUDIT C Alcohol Use Questionnaire (AUDIT-C) 1. How often do you have a drink containing alcohol?: Never 2. How many drinks containing alcohol do you have on a typical day when you are drinking?: 1 or 2 (0) 3. How often do you have six or more drinks on one occasion?: Never Total Score: 0 ANGELA-7 AMB Questionnaire ANGELA-7 Date ANGELA - 7 assessed: 04/01/23 Source: Developed by Drs. Ender Rosario, Gale Navarro, Alejandro Cabrera and colleagues, with an educational bing from [employer]. Physical exam (Primary Care) Vital Signs: Last Vital Signs Pulse 75 12/13/23 10:31 BP 124/72 12/13/23 10:31 Pulse Ox 98 12/13/23 10:31 Oxygen Delivery Method Room Air 12/13/23 10:31 BMI result Body Mass Index 37.7 Tobacco/Smoking Status: Tobacco use Status Tobacco use date assessed 06/30/23 12/13/23 10:36 Patient Tobacco Use Status Never used Tobacco 12/13/23 10:36 e-Cigarette/Vaping Use Never Used 12/13/23 10:36 Thrive Assessment: Date of Thrive Assessment Date Thrive assessed 03/04/22 12/13/23 10:36 Const General: alert; No acute distress Eyes Conjunctivae: conjunctivae normal Resp Auscultation: clear to auscultation bilaterally Cardio Rate: regular rate Rhythm: regular rhythm GI Inspection: Yes normal to inspection Extrem General: Yes normal to inspection and No edema Results AMB Hemoglobin A1c AMB Hemoglobin A1c 6.6 % Last Edit by RAIN De Jesus on 12/13/23 10:55 Results Reviewed Results Reviewed: Laboratory Last Values Hgb A1c (Clinic) 6.6 % (4.0-6.0) H 12/13/23 08:16 Coding Level of Care Code Est Pt Level 4 (65915) Diagnoses Type 2 diabetes mellitus with hyperglycemia, unspecified whether longwall shearer operator insulin use E11.65 Diabetes mellitus care home insulin use: unspecified longwall shearer operator insulin use status Class 3 severe obesity due to excess calories with serious comorbidity and body mass index (BMI) of 40.0 to 44.9 in adult E66.01; Z68.41 Obesity type: due to excess calories Obesity classification: adult class 3 (BMI >= 40) Serious obesity comorbidity presence: with serious comorbidity Body mass index: BMI 40.0-44.9 Essential hypertension I10 Hypertension type: essential hypertension Hypercholesterolemia E78.00 Nephrocalcinosis E83.59; N29 Assessment & Plan Assessment & Plan (1) Type 2 diabetes mellitus with hyperglycemia: Comment: Abril 06/2023 [facility] [address] [id number] Code(s): E11.65 - Type 2 diabetes mellitus with hyperglycemia Category: Medical Qualifiers: Diabetes mellitus longwall shearer operator insulin use: unspecified longwall shearer operator insulin use status Qualified Code(s): E11.65 - Type 2 diabetes mellitus with hyperglycemia Plan: Decrease the amount of carbohydrate intake, pasta, bread, rice and potatoes are all sugar and that is aside from all the sweet stuff, remember that fruits are good but they are Sweet also. Hemoglobin A1c goal of less than 6.5. Patient is on Jardiance 25 mg once a day metformin 500 mg twice a day (2) Obesity: Code(s): E66.9 - Obesity, unspecified Category: Medical Qualifiers: Obesity type: due to excess calories Obesity classification: adult class 3 (BMI >= 40) Serious obesity comorbidity presence: with serious comorbidity Body mass index: BMI 40.0-44.9 Qualified Code(s): E66.01 - Morbid (severe) obesity due to excess calories; Z68.41 - Body mass index [BMI]40.0-44.9, adult Plan: Diet and exercise (3) Hypertension: Code(s): I10 - Essential (primary) hypertension Category: Medical Qualifiers: Hypertension type: essential hypertension Qualified Code(s): I10 - Essential (primary) hypertension Plan: Continue with blood pressure medication. Decrease salt intake and exercise on lisinopril 30 mg once a day amlodipine 2.5 mg once a day (4) Hypercholesterolemia: Code(s): E78.00 - Pure hypercholesterolemia, unspecified Category: Medical Plan: Avoid fried foods, chicken skin, eggs, butter margarine, pastries and meat. Be it pork or beef they have a lot of cholesterol LDL goal of less than 100 and triglyceride of less than 150 on atorvastatin 20 mg once a day (5) Nephrocalcinosis: Code(s): E83.59 - Other disorders of calcium metabolism; N29 - Other disorders of kidney and ureter in diseases classified elsewhere Category: Medical Plan: PAtient had a procedure ? lithotripsy? i do not have a discharge summary Orders: Orders Complete Blood Count Auto Diff 3 Months E11.65 - Type 2 diabetes mellitus with hyperglycemia Creatinine Urine 3 Months E11.65 - Type 2 diabetes mellitus with hyperglycemia Lipid Panel 3 Months E11.65 - Type 2 diabetes mellitus with hyperglycemia, E78.00 - Pure hypercholesterolemia, unspecified Thyroid Stimulating Hormone 3 Months E11.65 - Type 2 diabetes mellitus with hyperglycemia AMB Hemoglobin A1c Today E11.65 - Type 2 diabetes mellitus with hyperglycemia Comprehensive Met. Panel 3 Months . - Type 2 diabetes mellitus with hyperglycemia Vitamin B12 and Folate 3 Months . - Type 2 diabetes mellitus with hyperglycemia Microalbumin, Random (w Creat) 3 Months . - Type 2 diabetes mellitus with hyperglycemia Free T4 (Free Thyroxine) 3 Months . - Type 2 diabetes mellitus with hyperglycemia Hemoglobin A1c 3 Months E11. - Type 2 diabetes mellitus with hyperglycemia Vitamin D 25-OH Total 3 Months . - Type 2 diabetes mellitus with hyperglycemia Medications: Refilled docusate sodium (Colace) 100 mg PO DAILY 90 days PRN 90 caps 3RF constipation K59.00 - Constipation, unspecified Discontinued cyclobenzaprine Discontinued Reason: Patient Completed Course 10 mg PO TID PRN 15 tabs 0RF muscle spasm
[2023-12-13 10:31] VITALS: BP 124/72; PULSE 75; O2SAT 98; BMI 37.7
== END 2023-12-13 11:17 | disposition home or self-care (01) ==
LOC: HO.HMCH 10:19
PROVIDERS: PCP Internal Medicine; Visit Provider Internal Medicine
DX: E11.65 Type 2 diabetes mellitus with hyperglycemia (principal); E66.01 Morbid (severe) obesity due to excess calories; Z68.41 Body mass index [BMI] 40.0-44.9, adult; I10 Essential (primary) hypertension; E78.00 Pure hypercholesterolemia, unspecified; E83.59 Other disorders of calcium metabolism; N29 Other disorders of kidney and ureter in diseases classified elsewhere

== ENCOUNTER → 2023-12-13 10:19 | Outpatient (BNVA) | payer OTHER, SELFPAY | PROVIDERS: PCP Internal Medicine; Visit Provider Internal Medicine | DX: E11.65 Type 2 diabetes mellitus with hyperglycemia (principal); E66.01 Morbid (severe) obesity due to excess calories; Z68.41 Body mass index [BMI] 40.0-44.9, adult; I10 Essential (primary) hypertension; E78.00 Pure hypercholesterolemia, unspecified; E83.50 Unspecified disorder of calcium metabolism; N29 Other disorders of kidney and ureter in diseases classified elsewhere; Z71.3 Dietary counseling and surveillance | CPT/HCPCS: 83036; 99212 ==

== ENCOUNTER 2024-03-14 10:30 | Outpatient (AMB) | payer OTHER, SELFPAY ==
[2024-03-14 11:10] VITALS: BP 130/82; PULSE 75; O2SAT 96; BMI 38.3
--- NOTE | 2024-03-14 11:10 | MHC.PC.OV ---
Vital Signs 03/14/24 11:10 Height 5 ft 3 in Weight 216 lb BMI 38.3 BP 130/82 Blood Pressure Location Lt brachial Position Sitting Pulse 75 Pulse Source Pulse Oximeter Pulse Oximetry (%) 96 Oxygen Delivery Method Room Air Intake Visit Reasons: 3MoFollowUp Intake Note: Suffering with dizziness, and has pain in left leg. Script request added to med list. Please print if appropriate and I will fax to [phone] and [phone]. Patient has had a cough for about 2 days, grandson was sick with common cold. Patient also complaining for frequency of micturition. Mentioned that she also broke/misplaced glucometer. Allergies No Known Allergies Allergy (Verified 03/14/24 11:11) Tobacco use date assessed: 03/14/24 Dental Screening Dental Screen Date: 03/14/24 Did you have a dental visit in the last 12 months?: Yes Did you have a dental problem in the last 6 months where you did not have access to dental care?: No Was dental information given to patient?: Patient has dentist HPI 3MoFollowUp HPI Details cough, fever sore throat The patient is a 49-year-old female presenting with a bothersome cough that started yesterday. The patient reports it is a dry cough with no production of phlegm. The cough occurs primarily at night, leading to episodes of shortness of breath. She denies any fever. There is a request for a diagnostic test for COVID-19, influenza, and RSV to ascertain the cause of her symptoms. The patient has a history of diabetes mellitus, with her hemoglobin A1c previously noted at 6.6 and is presently 6.4, demonstrating improvement. The patient does not currently have any severe issues related to diabetes, and the goal for her A1c is to maintain it below 6.5. The patient also has a history of nephrolithiasis, described as a stone in the kidney, though no current symptoms directly attributable to this condition were discussed. Additionally, the patient inquired about weight management options in the context of her diabetes, specifically requesting information about an injection for weight loss. [facility] Medical History (Updated 01/05/24 @ 12:59 by Raj Rodas MD) Colonoscopy refused Colon cancer screening Increased abdominal girth Dizziness Breast cancer screening by mammogram Anemia History of renal calculi Type 2 diabetes mellitus with hyperglycemia Hypercholesterolemia Obesity Medullary sponge kidney Hypertension Menorrhagia Vitamin D deficiency Surgical History History of section History of laparoscopic cholecystectomy Family History (Updated 11/28/20 @ 13:43 by RAIN Delong) Father Pancreatic cancer Hypertension Diabetes Mother Breast cancer Hypertension Brother Hypertension Paternal Grandfather Myocardial infarction Social History Housing: House Alcohol intake: never Patient Tobacco Use Status: Never used Tobacco Tobacco use type: Cigarette e-Cigarette/Vaping Use: Never Used Second Hand Smoke Exposure: No service: No Current occupational status: unemployed Cognitive needs: No Hearing needs: No Vision needs: No Questionnaire PHQ-9 Over the last 2 weeks, how often have you been bothered by any of the following problems? 1. Little interest or pleasure in doing things: not at all 2. Feeling down, depressed, or hopeless: not at all 3. Trouble falling or staying asleep, or sleeping too much: not at all 4. Feeling tired or having little energy: not at all 5. Poor appetite or overeating: not at all 6. Feeling bad about yourself - or that you are a failure or have let yourself or your family down: not at all 7. Trouble concentrating on things, such as reading the newspaper or watching television: not at all 8. Moving or speaking so slowly that other people could have noticed. Or the opposite - being so fidgety or restless that you have been moving around a lot more than usual: not at all 9. Thoughts that you would be better off or of hurting yourself in some way: not at all Total score: 0 Depression Screening Interpretation: Negative Depression Screening Done: Yes Source: Developed by Drs. Ender Rosario, Gale Navarro, Alejandro Carbera and colleagues, with an educational bing from [employer]. Thrive Questionnaire Date Thrive assessed: 03/14/24 I am a: Patient What is your living situation today?: I have a steady place to live Within the past 12 months, did the food you bought not last and you didn't have the money to get more?: Never true Within the past 12 months, did you worry whether your food would run out before you got money to buy more?: Never true Do you have trouble paying for medicines?: No Do you have trouble getting transportation to medical appointments?: No Do you have trouble paying your heating and electricity bill?: No Do you have trouble taking care of your child, family member or friend?: No Do you have trouble with day-to-day activities such as bathing, preparing meals, shopping, managing finances, etc.?: No Are you currently unemployed and looking for a job?: I choose not to answer this question Are you interested in more education?: No Currently or been in a relationship where the following occur: No concerns reported THRIVE Score: 0 AUDIT C Alcohol Use Questionnaire (AUDIT-C) 1. How often do you have a drink containing alcohol?: Never 2. How many drinks containing alcohol do you have on a typical day when you are drinking?: 1 or 2 (0) 3. How often do you have six or more drinks on one occasion?: Never Total Score: 0 ANGELA-7 AMB Questionnaire ANGELA-7 Date ANGELA - 7 assessed: 03/14/24 Feeling nervous, anxious, or on edge: 0 = Not at all Not being able to stop or control worryin = Not at all Worrying too much about different things: 0 = Not at all Trouble relaxin = Not at all Being so restless that it is hard to sit still: 0 = Not at all Becoming easily annoyed or irritable: 0 = Not at all Feeling afraid as if something awful might happen: 0 = Not at all Total ANGELA-7 score (0-4 normal; 5-9 mild; 10-14 moderate; 15-21 severe): 0 Source: Developed by Drs. Ender Rosario, Gale Navarro, Alejandro Cabrera and colleagues, with an educational bing from [employer]. Physical exam (Primary Care) Vital Signs: Last Vital Signs Pulse 75 03/14/24 11:10 BP 130/82 03/14/24 11:10 Pulse Ox 96 03/14/24 11:10 Oxygen Delivery Method Room Air 03/14/24 11:10 BMI result Body Mass Index 38.3 Tobacco/Smoking Status: Tobacco use Status Tobacco use date assessed 03/14/24 03/14/24 11:12 Patient Tobacco Use Status Never used Tobacco 03/14/24 11:12 Tobacco use type Cigarette 03/14/24 11:12 e-Cigarette/Vaping Use Never Used 03/14/24 11:12 PHQ-9: PHQ-9 Score PHQ-9: Total score 0 03/14/24 11:45 Depression Screening Interpretation: Negative Thrive Assessment: Date of Thrive Assessment Date Thrive assessed 03/14/24 03/14/24 11:12 Currently or been in a relationship where the following occur: No concerns reported Const General: alert; No acute distress Eyes Conjunctivae: conjunctivae normal Resp Auscultation: clear to auscultation bilaterally Cardio Rate: regular rate Rhythm: regular rhythm GI Inspection: Yes normal to inspection Extrem General: Yes normal to inspection and No edema Results AMB Hemoglobin A1c AMB Hemoglobin A1c 6.4 % Last Edit by Alessandra Reyes CMA on 03/14/24 11:32 AMB Urinalysis, Automated UA Leukoctes 0 Tana/uL Last Edit by Alessandra Reyes CMA on 03/14/24 11:37 UA Nitrite Negative Last Edit by Alessandra Reyes CMA on 03/14/24 11:37 UA Urobilinogen 0.2 mg/dL Last Edit by Alessandra Reyes CMA on 03/14/24 11:37 UA Protein 0 mg/dL Last Edit by Alessandra Reyes CMA on 03/14/24 11:37 UA pH 6.0 Last Edit by Alessandra Reyes CMA on 03/14/24 11:37 UA Blood 10 Brooks/uL Last Edit by Alessandra Reyes CMA on 03/14/24 11:37 UA Specific [place] 1.015 Last Edit by Alessandra Reyes CMA on 03/14/24 11:37 UA Ketone Negative Last Edit by Alessandra Reyes CMA on 03/14/24 11:37 UA Bilirubin 0 mg/dL Last Edit by Alessandra Reyes CMA on 03/14/24 11:37 UA Glucose 1000 mg/dL Last Edit by Alessandra Reyes CMA on 03/14/24 11:37 Results Reviewed Results Reviewed: Laboratory Last Values Hgb A1c (Clinic) 6.4 % (4.0-6.0) H 03/14/24 11:30 Urine pH (Auto) 6.0 03/14/24 11:30 Specific [place] (Auto) 1.015 03/14/24 11:30 Urine Protein (Auto) 0 mg/dL 03/14/24 11:30 Glucose (UA)(Auto) 1000 mg/dL 03/14/24 11:30 Urine Ketones (Auto) Negative 03/14/24 11:30 Urine Blood (Auto) 10 Brooks/uL 03/14/24 11:30 Urine Nitrite (Auto) Negative 03/14/24 11:30 Urine Bilirubin (Auto) 0 mg/dL 03/14/24 11:30 Urine Urobilinogen (Auto) 0.2 mg/dL 03/14/24 11:30 Leukocyte Esterase (Auto) 0 Tana/uL 03/14/24 11:30 Coding Level of Care Code Est Pt Level 4 (85237) Diagnoses Type 2 diabetes mellitus with hyperglycemia, unspecified whether termite treater helper insulin use E11.65 Diabetes mellitus skilled nursing insulin use: unspecified skilled nursing insulin use status Essential hypertension I10 Hypertension type: essential hypertension Class 3 severe obesity due to excess calories with serious comorbidity and body mass index (BMI) of 40.0 to 44.9 in adult E66.01; Z68.41 Body mass index: BMI 40.0-44.9 Obesity classification: adult class 3 (BMI >= 40) Obesity type: due to excess calories Serious obesity comorbidity presence: with serious comorbidity Hypercholesterolemia E78.00 Fatty liver K76.0 Medullary sponge kidney Q61.5 Nephrocalcinosis E83.59; N29 Cough R05.9 Assessment & Plan Assessment & Plan (1) Type 2 diabetes mellitus with hyperglycemia: Comment: Abril 06/2023 Eye sight an and surgery [facility] [phone], 12/04/2023 Code(s): E11.65 - Type 2 diabetes mellitus with hyperglycemia Category: Medical Qualifiers: Diabetes mellitus termite treater helper insulin use: unspecified skilled nursing insulin use status Qualified Code(s): E11.65 - Type 2 diabetes mellitus with hyperglycemia (2) Hypertension: Code(s): I10 - Essential (primary) hypertension Category: Medical Qualifiers: Hypertension type: essential hypertension Qualified Code(s): I10 - Essential (primary) hypertension (3) Obesity: Code(s): E66.9 - Obesity, unspecified Category: Medical Qualifiers: Body mass index: BMI 40.0-44.9 Obesity classification: adult class 3 (BMI >= 40) Obesity type: due to excess calories Serious obesity comorbidity presence: with serious comorbidity Qualified Code(s): E66.01 - Morbid (severe) obesity due to excess calories; Z68.41 - Body mass index [BMI]40.0-44.9, adult (4) Hypercholesterolemia: Code(s): E78.00 - Pure hypercholesterolemia, unspecified Category: Medical (5) Fatty liver: Code(s): K76.0 - Fatty (change of) liver, not elsewhere classified Category: Medical (6) Medullary sponge kidney: Comment: Dr. Judd Code(s): Q61.5 - Medullary cystic kidney Category: Medical (7) Nephrocalcinosis: Code(s): E83.59 - Other disorders of calcium metabolism; N29 - Other disorders of kidney and ureter in diseases classified elsewhere Category: Medical (8) Cough: Code(s): R05.9 - Cough, unspecified Category: Medical Plan - Order COVID-19, influenza, and RSV tests to evaluate the cause of the cough. - Prescribe medication to alleviate the patient's dry cough, taken only when symptoms are prominent. - Remind the patient to schedule a fasting blood test to monitor diabetes control. - Prescribe Mounjaro for weight management, to be taken as a once-weekly injection, contingent upon insurance approval. - Follow-up in three months, with instructions to perform testing at the hospital laboratory. - Evaluate the need for urine analysis if any additional symptoms arise related to nephrolithiasis. Orders: Orders AMB Hemoglobin A1c Today E11.65 - Type 2 diabetes mellitus with hyperglycemia, Z13.9 - Encounter for screening, unspecified AMB Urinalysis Automated Today R35.0 - Frequency of micturition Uric Acid Today E83.59 - Other disorders of calcium metabolism, N29 - Other disorders of kidney and ureter in diseases classified elsewhere SARS-CoV2/FLU/RSV Today R05.9 - Cough, unspecified UA CC w/rflx Micro + Cult Today R05.9 - Cough, unspecified, R30.0 - Dysuria Medications: New tirzepatide (Mounjaro) for 4 weeks 2.5 mg (0.5 mL) subcut QWEEK 2 mL 0RF E11.65 - Type 2 diabetes mellitus with hyperglycemia [Non Slip Rug] As directed 1 ea 0RF M54.50 - Low back pain, unspecified [Grab Bar By Toilet] As directed 1 ea 0RF M54.50 - Low back pain, unspecified [Bed Bar] As directed 1 ea 0RF M54.50 - Low back pain, unspecified [Weekly Medicaton Box] As directed 1 ea 0RF E11.65 - Type 2 diabetes mellitus with hyperglycemia, E55.9 - Vitamin D deficiency, unspecified, E83.59 - Other disorders of calcium metabolism, G47.10 - Hypersomnia, unspecified, I10 - Essential (primary) hypertension, K59.00 - Constipation, unspecified, M54.50 - Low back pain, unspecified, N29 - Other disorders of kidney and ureter in diseases classified elsewhere, Q61.5 - Medullary cystic kidney benzonatate 200 mg PO BID-TID PRN 20 caps 0RF cough R05.9 - Cough, unspecified
--- OUTSIDE RECORDS SUMMARY | 2024-03-14 12:35 | XMS_ITS | Clinical Summary ---
Author Organization [facility] Address [address] [address] Phone Care Team Providers Care Auditor/Quality Name Role Phone Raj Rodas MD Primary Care Provider [phone] Allergies No known active allergies Medications amLODIPine (NORVASC) 2.5 MG tablet Take 2.5 mg by mouth 1 (one) time each day 04/09/2020 Active Aspirin Low Dose 81 MG EC tablet Take 81 mg by mouth 1 (one) time each day 02/11/2020 Active lisinopril-hydr oCHLOROthiazide (PRINZIDE,ZESTO RETIC) 20-25 MG per tablet Take 1 tablet by mouth 1 (one) time each day Active Canagliflozin-m etFORMIN HCl (Invokamet) 50-500 MG tablet Take 2 tablets by mouth 1 (one) time each day 180 tablet 5 05/06/2020 Active atorvastatin (LIPITOR) 20 MG tablet Take 20 mg by mouth 1 (one) time each day 10/12/2020 Active Potassium Citrate ER 15 MEQ (1620 MG) tablet controlled-rele ase Take 1 tablet by mouth in the morning and 1 tablet at noon and 1 tablet in the evening. 02/25/2022 Active Xigduo XR 10-1000 MG tablet sustained-relea se 24 hour Take 1 tablet by mouth 1 (one) time each day 11/28/2023 Active Active Problems Problem Noted Date Diagnosed Date Hypo-osmolality and hyponatremia 11/07/2023 Iron deficiency anemia, not otherwise specified 11/07/2023 Blood in urine 04/28/2020 Hypertension 04/28/2020 Medullary sponge kidney 04/28/2020 Renal stone 04/28/2020 Immunizations Name Administration Dates Next Due Pneumococcal Polysaccharide 11/30/2013 Family History Medical History Relation Comments Diabetes Father Hypertension Father Kidney disease Father Kidney Stones Hypertension Mother Relation Status Comments Father Alive Mother Alive Social History Tobacco Use Types Packs/Day Years Used Date Smoking Tobacco: Never Smokeless Tobacco: Never Tobacco Cessation:Counseling Given: Not Answered Alcohol Use Standard Drinks/Week Comments No 0 (1 standard drink = 0.6 oz pur e alcohol) Comments Unknown Sex and Gender Information Value Date Recorded Sex Assigned at Not on file Legal Sex Female 5:08 PM EST Gender Identity Not on file Sexual Orientation Not on file Last Filed Vital Signs Vital Sign Reading Time Taken Comments Blood Pressure 115/70 12/07/2023 2:24 PM EDT Pulse 87 12/07/2023 2:24 PM EDT Temperature - - Respiratory Rate - - Oxygen Saturation 98% 05/02/2023 9:15 AM EDT Inhaled Oxygen Concentration - - Weight 96.2 kg (212 lb) 12/07/2023 2:24 PM EDT Height 160 cm (5' 3 ) 04/30/2021 2:37 PM EDT Body Mass Index 37.55 04/30/2021 2:37 PM EDT Plan of Treatment Upcoming Encounters Date Type Department Care Team (Late st Contact Info) Description 12/06/2024 1:00 PM EDT Office Visit [facility] [address] [phone] Gala Redman ARNP [address] [phone] Health Maintenance Due Date Last Done Comments Hepatitis B Vaccine (1 of 3 - 19+ 3-dose series) 01/09/1996 Pneumococcal Vaccine: Pediat rics (0 to 5 Years) and At-Risk Patients (6 to 64 Years) (2 of 2 - PCV) 11/30/2014 11/30/2013 Diabetes: Ophthalmology Exam 05/03/2022 Diabetes: Pedal Pulse Checked 05/03/2022 Diabetes: Sensory Foot Exam 05/03/2022 Diabetes: Visual Foot Exam 05/03/2022 Diabetes: Hemoglobin A1C 08/05/2022 023, 04/27/2021, 11/06/2020, Additional history exists Influenza Vaccine (#1) 2023 Procedures Procedure Name Priority Date/Time Associated Diagnosis Comments HEMOGLOBIN A1C Routine 05/05/2022 10:44 AM EDT Iron deficiency anemia, not otherwise specified Medullary sponge kidney Renal stone from Last 3 Months or Most Recently Relevant to Health Maintenance Results * (ABNORMAL) Hemoglobin A1c (05/05/2022 10:44 AM EDT) Hemoglobin A1C 6.6(H) (4.0-5.6) % [facility] Comment: MONITORING: In known diabetic patients, hemoglobin A1c targets should be discussed with health care provider. DIAGNOSTIC USE: ??The [place] Diabetes Association (ADA) and the World Health Organization (WHO) recommend the use of HbA1c to diagnose diabetes using a threshold of 6.5%. Patients who have an HbA1c between 5.7% and 6.4% are considered at increased risk for developing diabetes in the future. CAUTION: Falsely low HbA1c results may be observed in patients with hemolytic anemia, homozygous forms of abnormal hemoglobin (e.g. SS, CC, SC), , recent blood loss or hemoglobin F greater than 7%. Fructosamine may be used as an alternate test in these cases. REFERENCE: ADA: Standards of Medical Care in Diabetes 2020, The Journal of Clinical and Applied Research and Education Volume 43, Supplement 1 Testing performed or reported by [facility], a Service of [facility], [address] [place] [address] Shilpi Alvarado MD, Computer Designer [facility]# [id number] Blood (Blood, Venous) 05/05/2022 10:44 AM EDT 05/05/2022 10:50 AM EDT us Delvis Caban MD LAB BLOOD ORDERABLES Final Re sult [facility] from Last 3 Months or Most Recently Relevant to Health Maintenance Insurance [address] [place] [address] ([id number]) [facility] ([id number]) Care Teams Auditor/Quality Relationship Specialty Start Date End Date Raj Rodas MD [id number] [place], [place] PCP - General 02/25/20
--- OUTSIDE RECORDS SUMMARY | 2024-03-14 12:35 | XMS_ITS | Encounter Summary ---
Author Organization [facility] Address [address] [place] [phone] Phone Care Team Providers Care Insurance Application Investigator Name Role Phone Raj Rodas MD Primary Care Provider [phone] Encounter Details Date Type Department Care Team ([facility] Contact Info) Description 12/07/2023 Office Communication [facility] [address] [place] [phone] Gala Redman ARNP [address] [phone] Social History Tobacco Use Types Packs/Day Years Used Date Smoking Tobacco: Never Smokeless Tobacco: Never Alcohol Use Standard Drinks/Week Comments No 0 (1 standard drink = 0.6 oz pur e alcohol) Comments Unknown Sex and Gender Information Value Date Recorded Sex Assigned at Not on file Legal Sex Female 5:08 PM EST Gender Identity Not on file Sexual Orientation Not on file documented as of this encounter Plan of Treatment Upcoming Encounters Date Type Department Care Team ([facility] Contact Info) Description 12/06/2024 1:00 PM EDT Office Visit [facility] [address] [phone] Gala Redman ARNP [address] [phone] documented as of this encounter Visit Diagnoses Not on filedocumented in this encounter Care Teams Insurance Application Investigator Relationship Specialty Start Date End Date Raj Rodas MD [id number] [place], [place] PCP - General 02/25/20 documented as of this encounter
--- OUTSIDE RECORDS SUMMARY | 2024-03-14 12:35 | XMS_ITS | Clinical Summary ---
Author Organization [employer] Address [address] [place] [address] Care Team Providers Care Veneer Stapler Name Role Phone Raj Rodas MD Primary Care Provider [phone] Encounters Date Type Department Care Team Description 12/15/2023 10:21 AM EDT - 12/15/2023 10:56 AM EDT [facility] Emergency [address] [place] [phone] Lloyd Gusman PA Discharge Disposition: Home or Self Care from Last 3 Months Surgical History Surgery Date Site/Laterality Comments OTHER SURGICAL HISTORY N/A PROCEDURE: NV TOT ABD HYST W/PARAORTIC & PELVIC LYMPH NODE FERN CHOLECYSTECTOMY N/A PROCEDURE: [place] LAPAROSCOPY SURG CHOLECYSTECTOMY Medical History Medical History Date Comments Type 2 diabetes mellitus (CMS/HCC) 05/07/2021 DX:Type 2 diabetes mellitus (HCC) Obesity 05/07/2021 DX:Obesity Hypertension 05/07/2021 DX:Hypertension Anemia 05/07/2021 DX:Anemia Low back pain 05/07/2021 DX:Low back pain Plantar fasciitis 05/07/2021 DX:Plantar fas ciitis Renal calculi 05/07/2021 DX:Renal calculi High cholesterol 05/07/2021 DX:High cholest oz Menorrhagia 05/07/2021 DX:Menorrhagia Vitamin D deficiency 05/07/2021 DX:Vitamin D deficiency Social History Tobacco Use Types Packs/Day Years Used Date Smoking Tobacco: Never Smokeless Tobacco: Never Alcohol Use Standard Drinks/Week Comments Never 0 (1 standard drink = 0.6 oz pur e alcohol) Sex and Gender Information Value Date Recorded Sex Assigned at Not on file Gender Identity Not on file Sexual Orientation Not on file Obstetrics History Plan of Treatment Health Maintenance Due Date Last Done Comments Diabetes: Annual GFR (Glomer ular Filtration Rate) 1977 Diabetes: Annual Foot Exam 1987 Diabetes: Annual Retina Eye Exam 1987 DTaP,Tdap,and Td Vaccines (1 - Tdap) 01/09/1996 Hepatitis B Vaccines (1 of 3 - 19+ 3-dose series) 01/09/1996 Cervical Cancer Screening: P ap Smear 1998 Breast Cancer Screening 01/31/2020 01/30/2018 Cholesterol Screening (Lipid Panel) 01/17/2022 Colorectal Cancer Screening: Colonoscopy 01/17/2022 Depression Screening 01/17/2022 HIV Screening 01/17/2022 Hepatitis C Screening 01/17/2022 Social Influencers of Health Screening 01/17/2022 Diabetes: Annual Urine Albumin-Creatinine Ratio (uACR) 01/29/2022 Diabetes: Blood Sugar Contro l Test (HGBA1C) 01/29/2022 Hypertension/CHF/CAD Annual BMP Blood Test 01/29/2022 COVID-19 Vaccine ( - 2023-2 5 season) 2023 Influenza Vaccine (#1) 2023 HIB Vaccines Aged Out No longer eligi ble based on patient's age to complete this topic HPV Vaccines Aged Out No longer eligi ble based on patient's age to complete this topic Hepatitis A Vaccines Aged Out No long er eligible based on patient's age to complete this topic IPV Vaccines Aged Out No longer eligi ble based on patient's age to complete this topic MMR Vaccines Aged Out No longer eligi ble based on patient's age to complete this topic Meningococcal ACWY Vaccine Aged Out N o longer eligible based on patient's age to complete this topic Pneumococcal Vaccine: Pediat rics (0 to 5 Years) and At-Risk Patients (6 to 64 Years) Aged Out No longer eligi ble based on patient's age to complete this topic RSV Immunization Patients Un tu 20 months Aged Out No longer eligible b ased on patient's age to complete this topic Varicella Vaccines Aged Out No longer eligible based on patient's age to complete this topic Procedures Procedure Name Priority Date/Time Associated Diagnosis Comments NANDA SCREENING DIGITAL Routine 01/30/2018 6:02 PM EST Encounter for screening mammogram for malignant neoplasm of breast from Last 3 Months or Most Recently Relevant to Health Maintenance Results * NANDA SCREENING DIGITAL (01/30/2018 6:02 PM EST) Anatomical Region Laterality Modality Mammography 01/30/2018 2:27 PM EST Narrative 01/30/2018 6:[address] [facility] Diagnostic Imaging Department [address] [place] [address] Patient: ??KAR FRANCISCOMANUEL ?/Age/Sex: 1975 - 43 - F Unit#: ??[id number] ? Location/Status: ??SPDIMAM/REG CLI ? Mnemonic/Ordering Site: ??DIGSC/SPMAM Ordering Physician: ??HERMANN MITCHELL MD [facility] Screening Digital - 01/30/18 - 1502 INDICATION: SCREENING COMPARISON: No prior studies are available for comparison. ??Baseline exam FINDINGS: CC and MLO views of the breasts were obtained, using full field digital mammography with 3D tomosynthesis views in the MLO projection. Computer aided detection with the [employer] 7.2-H was employed. A cleavage view was also obtained. The breasts contain heterogeneously dense tissues, which may lower sensitivity of mammography in this patient. No suspicious masses, suspicious microcalcifications, or areas of architectural distortion are identified within either breast. ??Rare benign-appearing breast calcifications are present bilaterally. There are no secondary signs of breast malignancy. IMPRESSION: ??No specific mammographic evidence of breast malignancy. Asymmetry overlying the posterolateral right breast in the CC projection is shown to represent a skin finding on tomography and should be correlated with physical exam. Lack of a mammographic finding in the presence of a clinically suspicious palpable abnormality does not preclude the possibility of malignancy or alter the indications for biopsy. BI-RADS ??- Category 2 - Benign finding 3342F, 7025F Annual screening mammography is recommended. Patient entered into a reminder system with a target date for the next mammogram. (G0202 / [id number]) , ??[id number] Dictating Physician: ??MANJINDER FORTUNE MD Electronically Signed by: ??MANJINDER FORTUNE MD Dic Date/Time: ??01/30/181758 Sign date/Time: ??01/30/18 180 Procedure Note Manjinder Fortune MD - 02/02/[address] [facility] Diagnostic Imaging Department [address] [place] [address] Patient: ISABELL AMEZCUALYN /Age/Sex: 1975 - 43 - F Unit#: [id number] Location/Status: [facility]/REG CLI Mnemonic/Ordering Site: DIGSC/SPMAM Ordering Physician: HERMANN MITCHELL MD [facility] Screening Digital - 01/30/18 - 1502 INDICATION: SCREENING COMPARISON: No prior studies are available for comparison. Baselineexam FINDINGS: CC and MLO views of the breasts were obtained, using full field digital mammography with 3D tomosynthesis views in the MLO projection. Computeraided detection with the [employer] 7.2-H was employed. A cleavage view wasalso obtained. The breasts contain heterogeneously dense tissues, which may lowersensitivity of mammography in this patient. No suspicious masses, suspicious microcalcifications, or areas ofarchitectural distortion are identified within either breast. Rare benign-appearingbreast calcifications are present bilaterally. There are no secondary signs ofbreast malignancy. IMPRESSION: No specific mammographic evidence of breast malignancy. Asymmetry overlying the posterolateral right breast in the CC projectionis shown to represent a skin finding on tomography and should be correlatedwith physical exam. Lack of a mammographic finding in the presence of a clinicallysuspicious palpable abnormality does not preclude the possibility of malignancy oralter the indications for biopsy. BI-RADS - Category 2 - Benign finding 3342F, 7025F Annual screening mammography is recommended. Patient entered into a reminder system with a target date for the next mammogram. G0202 / [id number] , [id number] Dictating Physician: MANJINDER FORTUNE MD Electronically Signed by: MANJINDER FORTUNE MD Dic Date/Time: 01/30/18 1751 Sign date/Time: 01/30/18 180 Hermann Mitchell MD IMG BI PROCEDURES from Last 3 Months or Most Recently Relevant to Health Maintenance Care Teams Veneer Stapler Relationship Specialty Start Date End Date Raj Rodas MD [address] [place] [address] [address] [facility] [place] [address] PCP - General Internal Medicine 04/23/21
--- OUTSIDE RECORDS SUMMARY | 2024-03-14 12:36 | XMS_ITS | Data Portability ---
Author Organization [employer] [facility] [place] - [facility] Address [address] [place] [phone] Care Team Providers Care Real Estate Photographer Name Role Phone [facility] Referring Provider Assessment No assessment recorded. Plan of Treatment Reminders Order Date Submit Date Provider Last Modified By Organization Details Last Modified Time Details Appointments None recorded. Lab culture, urine 2022 023 [place] [facility], [address] [place], [id number], 23:41:55 urinalysis , dipstick 2022 023 [facility], [address] [place] [address], [phone], 19:33:43 Referral None recorded. Procedures None recorded. Surgeries None recorded. Imaging None recorded. Medication Orders Macrobid 100 mg capsule 2022 023 [place] [id number], [address] [place], [place], [phone], 19:33:56 Patient TargetsNo targets recorded. Patient InstructionsNo instructions recorded. Reason for Referral None Reported. Results Created Date Observation Date Name Description Value Unit Range Abnormal Flag Note LastModifiedBy Organization Detail LastModifiedTime 01/04/2001/03/2023 URINE CULTU RE specimen description URINE Not Available [facility] [address] [place], [address], 01/04/2023 23:41:55 01/04/20 23 01/03/2023 URINE CULTU RE special requests NONE Not Available [facility] [address] [place], [address], 01/04/2023 23:41:55 01/04/20 23 01/04/2023 URINE CULTU RE culture <10,00 0 COL/ML abnormal Not Available [facility] [address] [place], [address], 01/04/2023 23:41:55 01/04/20 23 01/04/2023 URINE CULTU RE report status FINAL 2022 Not Available [facility] [address] [place], [address], 01/04/2023 23:41:55 01/04/20 23 01/03/2023 urina lysis , dipst ick Leukocytes trace Not Available [facility] [address] [place] [address], [phone], 01/03/2023 19:32:55 01/04/20 23 01/03/2023 urina lysis , dipst ick Nitrite negati ve Not Available [facility] [address] [place] [address], [phone], 01/03/2023 19:32:55 01/04/20 23 01/03/2023 urina lysis , dipst ick Blood negati ve Not Available [facility] [address] [place] [address], [phone], 01/03/2023 19:32:55 Result Notes None recorded. Medical Equipment None Reported. Medications Name Sig Start Date Stop Date Status Note LastModified by Organization Details LastModified Time atorvastatin 20 mg tablet TAKE 1 TABLET BY MOUTH DAILY active Not Available Not Available Not Available amlodipine 2.5 mg tablet TAKE 1 TABLET BY MOUTH DAILY active Not Available Not Available Not Available lisinopril 30 mg tablet TAKE 1 TABLET BY MOUTH DAILY active Not Available Not Available Not Available docusate sodium 100 mg capsule TAKE ONE CAPSULE BY MOUTH DAILY NEEDED FOR CONSTIPATIO N active Not Available Not Available No t Available lisinopril 20 mg-hydrochlo rothiazide 25 mg tablet TAKE 1 TABLET BY MOUTH DAILY active Not Available Not Available Not Available gabapentin 100 mg capsule TAKE 1 CAPSULE BY MOUTH AT BEDTIME active Not Available Not Available No t Available cyclobenzapr ine 5 mg tablet TAKE 1 TABLET BY MOUTH THREE TIMES DAILY NEEDED FOR MUSCLE SPASM active Not Available Not Available No t Available nitrofuranto in monohydrate/ macrocrystal s 100 mg capsule TAKE 1 CAPSULE BY MOUTH EVERY 12 HOURS FOR 5 DAYS active Not Available Not Available N ot Available 8 Hour Pain Reliever 650 mg tablet,exten ded release TAKE 1 TABLET BY MOUTH EVERY 12 HOURS NEEDED FOR PAIN active Not Available Not Available No t Available cholecalcife rol (vitamin D3) 50 mcg (2,000 unit) capsule TAKE 1 CAPSULE BY MOUTH DAILY active Not Available Not Available Not Available potassium citrate ER 15 mEq (1,620 mg) tablet,exten ded release TAKE 1 TABLET BY MOUTH THREE TIMES DAILY active Not Available Not Available Not Available Xigduo XR 10 mg-1,000 mg tablet,exten ded release TAKE 1 TABLET BY MOUTH DAILY active Not Available Not Available Not Available Vitals Date Recorded Heart rate Body temperature Respiratory rate Oxygen saturation Oxygen saturation in Arterial blood by Pulse oximetry Systolic blood pressure Diastolic blood pressure Provider Name and Address Organization Details Last Updated DateTime 3 75 /min 97 [degF] 16 /min 100 % 100 % 164 mm[Hg] 87 mm[Hg] Not Available [facility] - production 3 19:29:33 Social History None recorded. Functional Status None recorded. Mental Status None recorded. Family History Nothing Reported. Medical History No medical history recorded. Gynecological HistoryNo gynecological history recorded. Obstetrics History GPAL:G 0 P 0 0 0 0 Past Encounters Encounter ID Performer Location Encounter Start Date Encounter Closed Date Diagnosis/Indication Diagnosis SNOMED-CT Code Diagnosis ICD10 Code Diagnosis Note [id number] Eulalio Ring MD [facility] [address] [place] [phone] 01/03/2023 19:29:31 01/04/2023 10:48:19 Right flank pain 016261084 R10.9 Patient reports one day of dysuria, frequency, and hesitancy, consistent with previous UTIs. Also has one day of flank pain. UA obtained and without significan t pyuria. Time course also argues against pyelonephr itis. Further history suggests that she does have a history of kidney stones, but UA without blood. Will treat empiricall y for UTI and send culture, advised follow-up with urologist (which she reports having). Health Concerns Section Related Observation LastModified by Organization Nikolai lombardi LastModified Time None Recorded Concern Status LastModified by Organization Details LastModified Time None Recorded Advance Directives Directive None Recorded Payers Encounter Date Sequence Insurance Name Policy Number Policy White Covered Member ID White Member ID Guarantor Name 01/03/2023 1 [facility] - DOS ON OR AFTER 2022 - DUAL ELIGIBLE - INTERMEDIATE OPTIONS AND ONE CARE (MEDICARE REPLACEMENT/ADV ANTAGE - HMO) Xiomy Henderson [id number] Xiomy Henderson Notes Date Note Type Note Provider Name and Address Organization Details Recorded Time 01/03/2023 text/html [facility] Nursing Assessment: Chief Complaints: UTI/Pyelonephriti s PMH: Diabetes, Other Allergies: No Known Comments: Friend of member called to request visit for urinary symptoms since yesterday. Increased urination, dysuria. Suspected fever, unknown temp. Patient feels warm to touch. Patient also c/o flank pain. ................. ................. ................. ................. ................. ................. ................. ................. ..... Grocery Clerk Note From Ricky Jensen: Pt reports dysuria, increased urinary frequency with decreased output and flank pain since yesterday. Pt denies CP, SOB, URBINA, f/n/v/d. Pt reports hx of UTI? s and kidney stones. NKDA. Pt is alert, NAD. VSS. Afebrile. Neuro exam and gait normal. Lungs CTA. Benign ABD exam. Right side CVA tenderness. No GREGORIO. UA: trace KAREN, - NIT, - BLO. UC [facility]. [facility] [place] and sent rx for macrobid. Pt instructed to stay well hydrated, f/u with urologist tomorrow morning and to seek emergent medical care for new or worsening sx, which are reviewed with her. [facility] Lab Orders: culture, urine: Performed urinalysis, dipstick: Performed ................. ................. ................. ................. ................. ................. ................. ................. ..... Disposition: Fulfilled Eulalio Ring MD [address] [place] [address],[address] [facility], [place], [phone], [facility] 01/03/2023 19:48:37 OBGyn Episode No OBEpisode recorded.
== END 2024-03-14 11:56 | disposition home or self-care (01) ==
PROVIDERS: PCP Internal Medicine; Visit Provider Internal Medicine
DX: E11.65 Type 2 diabetes mellitus with hyperglycemia (principal); I10 Essential (primary) hypertension; E66.01 Morbid (severe) obesity due to excess calories; Z68.41 Body mass index [BMI] 40.0-44.9, adult; E78.00 Pure hypercholesterolemia, unspecified; K76.0 Fatty (change of) liver, not elsewhere classified; Q61.5 Medullary cystic kidney; E83.59 Other disorders of calcium metabolism; N29 Other disorders of kidney and ureter in diseases classified elsewhere; R05.9 Cough, unspecified; Z13.9 Encounter for screening, unspecified; R35.0 Frequency of micturition

== ENCOUNTER 2024-03-14 12:06 | Outpatient (REF) | payer OTHER, SELFPAY ==
[2024-03-14 13:06] LABS: Appearance Urine Cloudy; Color Urine Yellow; Glucose Urine UA >=1000 mg/dL (Negative); Leukocyte Esterase Urine Trace (Negative); Nitrite Urine Negative (Negative); Specific Gravity - Urine 1.025 (1.005-1.025); UMIC TRIGGER UACC YES; Urine Blood Negative (Negative); Urine Ketones Negative (Negative); Urine Protein Negative (Neg-Trace)
[2024-03-14 13:13] LABS: Influenza A PCR NEGATIVE (Negative); Influenza B PCR NEGATIVE (Negative); Resp Syncy Virus RNA Qual PCR POSITIVE (Negative); SARS COV2 PCR INHOUSE NEGATIVE (Negative)
[2024-03-14 13:31] LABS: Bacteria Urine 4+ (None Seen); Hyaline Casts Urine 0-2 /LPF (0-2); RBC Urine 0-2 /HPF (0-2); UACC Culture Trigger YES; WBC Urine 21-50 /HPF (0-5)
--- OUTSIDE RECORDS SUMMARY | 2024-03-14 14:28 | XMS_ITS | Clinical Summary ---
Author Organization [employer] Address [address] [place] [address] Care Team Providers Care Film Coater Name Role Phone Raj Rodas MD Primary Care Provider [phone] Encounters Date Type Department Care Team Description 12/15/2023 10:21 AM EDT - 12/15/2023 10:56 AM EDT [facility] Emergency [address] [place] [phone] Lloyd Gusman PA Discharge Disposition: Home or Self Care from Last 3 Months Surgical History Surgery Date Site/Laterality Comments OTHER SURGICAL HISTORY N/A PROCEDURE: SD TOT ABD HYST W/PARAORTIC & PELVIC LYMPH NODE FERN CHOLECYSTECTOMY N/A PROCEDURE: SD LAPAROSCOPY SURG CHOLECYSTECTOMY Medical History Medical History [...] PM EST Narrative 01/30/2018 6:02 PM EST [facility] Diagnostic Imaging Department [address] [place] [address] Patient: ??KAR FRANCISCOMANUEL ?/Age/Sex: 1975 - 43 - F Unit#: ??[id number] ? Location/Status: ??SPDIMAM/REG CLI ? Mnemonic/Ordering Site: ??DIGSC/SPMAM Ordering Physician: ??HERMANN MITCHELL MD [facility] Screening Digital - 01/30/18 - 1502 INDICATION: SCREENING COMPARISON: No prior studies are available for comparison. ??Baseline exam FINDINGS: CC and MLO views of the breasts were obtained, using full field digital mammography with 3D tomosynthesis views in the MLO projection. Computer aided detection with the [employer] 7.2-H was employed. A cleavage view was [...] date for the next mammogram. (G0202 / [id number]) , ??[id number] Dictating Physician: ??MANJINDER FORTUNE MD Electronically Signed by: ??MANJINDER FORTUNE MD Dic Date/Time: ??01/30/181758 Sign date/Time: ??01/30/18 180 Procedure Note Manjinder Fortune MD - 02/02/2022 [facility] Diagnostic Imaging Department [address] [place] [address] Patient: ISABELL AMEZCUALYN /Age/Sex: 1975 - 43 - F Unit#: [id number] Location/Status: [facility]/REG CLI Mnemonic/Ordering Site: DIGSC/SPMAM Ordering Physician: HERMANN MITCHELL MD [facility] Screening Digital - 01/30/18 - 1502 INDICATION: SCREENING COMPARISON: No prior studies are available for comparison. Baselineexam FINDINGS: CC and MLO views of the breasts were obtained, using full field digital mammography with 3D tomosynthesis views in the MLO projection. Computeraided detection with the [employer] 7.2-H was employed. A cleavage view wasalso [...] date for the next mammogram. G0202 / [id number] , [id number] Dictating Physician: MANJINDER FORTUNE MD Electronically Signed by: MANJINDER FORTUNE MD Dic Date/Time: 01/30/18 175 Sign date/Time: 01/30/18 180 Hermann Mitchell MD IMG BI PROCEDURES from Last 3 Months or Most Recently Relevant to Health Maintenance Care Teams Film Coater Relationship Specialty Start Date End Date Raj Rodas MD [address] [place] [address] [address] [facility] [place] [address] PCP - General Internal Medicine 04/23/21
--- OUTSIDE RECORDS SUMMARY | 2024-03-14 14:28 | XMS_ITS | Encounter Summary ---
Author Organization [facility] Address [address] [place] [phone] Phone Care Team Providers Care Chief Diversity Officer Name Role Phone Raj Rodas MD Primary Care Provider [phone] Encounter Details Date Type Department Care Team ([facility] Contact Info) Description 12/07/2023 Office Communication [facility] [address] [place] [phone] Gala Redman ARNP [address] [phone] Social History Tobacco Use Types [...] Upcoming Encounters Date Type Department Care Team ([facility] Contact Info) Description 12/06/2024 1:00 PM EDT Office Visit [facility] [address] [phone] Gala Redman ARNP [address] [phone] documented as of this encounter Visit Diagnoses Not on filedocumented in this encounter Care Teams Chief Diversity Officer Relationship Specialty Start Date End Date Raj Rodas MD [address] [place], [place] PCP - General 02/25/20 documented as of this encounter
--- OUTSIDE RECORDS SUMMARY | 2024-03-14 14:28 | XMS_ITS | Clinical Summary ---
Author Organization [facility] Address [address] [phone] Phone Care Team Providers Care Copper Roller Handler Printing Name Role Phone Raj Rodas MD Primary Care Provider [phone] Allergies No known active allergies Medications amLODIPine [...] Office Visit [facility] [address] [phone] Gala Redman ARNP [address] [phone] Health Maintenance Due Date Last Done Comments [...] AM EDT) Hemoglobin A1C 6.6(H) (4.0-5.6) % [facility] Comment: MONITORING: In known diabetic patients, hemoglobin A1c targets should be discussed with health care provider. DIAGNOSTIC USE: ??The [place] Diabetes [employer] (ADA) and the World Health [...] Supplement 1 Testing performed or reported by [facility], a Service of [facility], [address] [place] [address] Shilpi Alvarado MD, Regional Extension Service Specialist [facility]# [id number] Blood (Blood, Venous) 05/05/2022 10:44 AM EDT 05/05/2022 10:50 AM EDT us Delvis Caban MD LAB BLOOD ORDERABLES Final Re sult [facility] from Last 3 Months or Most Recently Relevant to Health Maintenance [place] [address] [place] [address] ([id number]) [facility] ([id number]) Care Teams Copper Roller Handler Printing Relationship Specialty Start Date End Date Raj Rodas MD [address] [place] PCP - General 02/25/20
== END 2024-03-14 12:07 | disposition home or self-care (01) ==
LOC: HO.LAB 12:06
PROVIDERS: PCP Internal Medicine; Visit Provider Internal Medicine
DX: R05.9 Cough, unspecified (principal); E11.65 Type 2 diabetes mellitus with hyperglycemia; Z13.9 Encounter for screening, unspecified; R35.0 Frequency of micturition
CPT/HCPCS: 0241U; 81001; 81003; 83036; 87086; 87088; 87186; 99212

== ENCOUNTER 2024-03-21 08:42 | Outpatient (REF) | payer OTHER, SELFPAY ==
--- OUTSIDE RECORDS SUMMARY | 2024-03-21 08:45 | XMS_ITS | Clinical Summary ---
Author Organization [facility] Address [address] [place] [address] Care Team Providers Care On Site Manager Name Role Phone Raj Rodas MD Primary Care Provider [phone] Surgical History Surgery Date Site/Laterality Comments OTHER SURGICAL HISTORY N/A PROCEDURE: [place] TOT ABD HYST W/PARAORTIC & PELVIC LYMPH NODE FERN CHOLECYSTECTOMY N/A PROCEDURE: [place] LAPAROSCOPY SURG CHOLECYSTECTOMY Medical History Medical History [...] Annual BMP Blood Test 01/29/2022 COVID-19 Vaccine (2023-2 5 season) 2023 Influenza Vaccine (#1) 2023 [...] PM EST Narrative 01/30/2018 6:02 PM EST [facility] Diagnostic Imaging Department [address] [place] [id number] Patient: ??LAKHANICHAPARRO FRANCISCOMANUEL ?/Age/Sex: 1975 - - F Unit#: ??[id number] ? Location/Status: ??SPDIMAM/REG CLI ? Mnemonic/Ordering Site: ??DIGSC/SPMAM Ordering Physician: ??HERMANN MITCHELL MD [facility] Screening Digital - 01/30/18 - 1502 INDICATION: SCREENING COMPARISON: No prior studies are available for comparison. ??Baseline exam FINDINGS: CC and MLO views of the breasts were obtained, using full field digital mammography with 3D tomosynthesis views in the MLO projection. Computer aided detection with the [employer] 7.2-H was employed. A cleavage view was [...] date for the next mammogram. (G0202 / [id number]) , ??[id number] Dictating Physician: ??RENNY FORTUNE MD Electronically Signed by: ??RENNY FORTUNE MD Dic Date/Time: ??01/30/181758 Sign date/Time: ??01/30/181801 Procedure Note Renny Fortune MD - 02/02/2022 [facility] Diagnostic Imaging Department [address] [place] [address] Patient: MANUEL AMEZCUA/Age/Sex: 1975 - 43 - F Unit#: [id number] Location/Status: [facility] Mnemonic/Ordering Site: [facility] Ordering Physician: HERMANN MITCHELL MD [facility] Screening Digital - 01/30/18 - 1501 INDICATION: SCREENING COMPARISON: No prior studies are available for comparison. Baselineexam FINDINGS: CC and MLO views of the breasts were obtained, using full field digital mammography with 3D tomosynthesis views in the MLO projection. Computeraided detection with the [employer] 7.2-H was employed. A cleavage view wasalso [...] a target date for the next mammogram. G0030 / [id number]) , 20432 Dictating Physician: RENNY FORTUNE MD Electronically Signed by: RENNY FORTUNE MD Dic Date/Time: 01/30/181758 Sign date/Time: 01/30/181801 Hermann Mitchell MD IMG BI PROCEDURES from Last 3 Months or Most Recently Relevant to Health Maintenance Care Teams On Site Manager Relationship Specialty Start Date End Date Raj Rodas MD [address] [place] [address] [address] [facility] [place] [address] PCP - General Internal Medicine 04/23/21
--- OUTSIDE RECORDS SUMMARY | 2024-03-21 08:45 | XMS_ITS | Clinical Summary ---
Author Organization [facility] Address [address] [address] Phone Care Team Providers Care Day Haul Youth Supervisor Name Role Phone Raj Rodas MD Primary Care Provider [phone] Allergies No known active allergies Medications amLODIPine [...] Office Visit [facility] [address] [address] Gala Redman ARNP [address] [phone] Health Maintenance Due Date Last Done Comments [...] AM EDT) Hemoglobin A1C 6.6(H) (4.0-5.6) % [facility] Comment: MONITORING: In known diabetic patients, hemoglobin A1c targets should be discussed with health care provider. DIAGNOSTIC USE: ??The [place] [employer] (ADA) and the World Health [...] Supplement 1 Testing performed or reported by [facility], a Service of [facility], [address] [place] [address] Shilpi Alvarado MD, Splitting Machine Operator Helper [facility]# [id number] Blood (Blood, Venous) 05/05/2022 10:44 AM EDT 05/05/2022 10:50 AM EDT us Delvis Caban MD LAB BLOOD ORDERABLES Final Re sult [facility] from Last 3 Months or Most Recently Relevant to Health Maintenance [place] [address] ([id number]) [facility] ([id number]) Care Teams Day Haul Youth Supervisor Relationship Specialty Start Date End Date Raj Rodas MD [address] [place], [place] PCP - General 02/25/20
--- OUTSIDE RECORDS SUMMARY | 2024-03-21 08:45 | XMS_ITS | Encounter Summary ---
Author Organization [facility] Address [address] [place] [phone] Phone Care Team Providers Care Vegetable Packer Name Role Phone Raj Rodas MD Primary Care Provider [phone] Encounter Details Date Type Department Care Team ([facility] Contact Info) Description 12/07/2023 Office Communication [facility] [address] [place] [phone] Gala Redman ARNP [address] [phone] Social History Tobacco Use Types [...] Upcoming Encounters Date Type Department Care Team ([facility] Contact Info) Description 12/06/2024 1:00 PM EDT Office Visit [facility] [address] [phone] Gala Redman ARNP [address] [phone] documented as of this encounter Visit Diagnoses Not on filedocumented in this encounter Care Teams Vegetable Packer Relationship Specialty Start Date End Date Raj Rodas MD [address] [place], [place] PCP - General 02/25/20 documented as of this encounter
[2024-03-21 09:13] LABS: MANUAL DIFF FLAG NO
[2024-03-21 09:29] LABS: Basophils Absolute Auto 0.1 X10*3/uL (0.0-0.2); Basophils Percent Auto 1.1 % (0-2); Eosinophils Absolute Auto 0.2 X10*3/uL (0.0-0.4); Eosinophils Percent Auto 3.1 % (0-4); Hematocrit 42.5 % (37.0-47.0); Hemoglobin 13.4 g/dl (12.0-16.0); Imm Gran Abs Auto 0.03 X10*3/uL (0.00-0.03); Imm Gran Pct Auto 0.5 % (0.0-0.4); Lymphocytes Absolute Auto 2.1 X10*3/uL (1.2-4.9); Lymphocytes Percent Auto 32.6 % (20-40); Mean Corpuscular HGB Conc 31.5 g/dl (31.0-35.0); Mean Corpuscular Hemoglobin 27.5 pg (27.0-33.0); Mean Corpuscular Volume 87.1 fL (80.0-98.0); Mean Platelet Volume 9.3 fL (9.4-12.3); Monocytes Absolute Auto 0.3 X10*3/uL (0.1-1.2); Neutrophils Absolute Auto 3.7 x10*3/uL (2.0-8.3); Neutrophils Percent Auto 57.7 % (45-73); Platelet Count 277 X10*3/uL (160-400); Red Blood Count 4.88 X10*6/uL (4.20-5.50); Red Cell Distribution Width 13.1 % (11.0-16.0); White Blood Count 6.5 X10*3/uL (4.8-10.8)
[2024-03-21 09:44] LABS: Appearance Urine Clear; Color Urine Yellow; Glucose Urine UA >=1000 mg/dL (Negative); Leukocyte Esterase Urine Negative (Negative); Nitrite Urine Negative (Negative); Specific Gravity - Urine 1.025 (1.005-1.025); UMIC TRIGGER UACC YES; Urine Blood Trace (Negative); Urine Ketones Negative (Negative); Urine Protein Negative (Neg-Trace)
[2024-03-21 09:44] LABS: Estimated Average Glucose 146 mg/dL; Hemoglobin A1C 174.5214 umol/L; Hemoglobin A1c % 6.7 % (<6.0)
[2024-03-21 09:51] LABS: Bacteria Urine None Seen (None Seen); Hyaline Casts Urine 0-2 /LPF (0-2); RBC Urine 0-2 /HPF (0-2); WBC Urine 0-5 /HPF (0-5)
[2024-03-21 10:03] LABS: Alanine Aminotransferase 20 U/L (0-31); Albumin Level 4.5 g/dL (3.5-5.0); Alkaline Phosphatase 128 U/L (39-117); Anion Gap 11 (12-20); Aspartate Amino Transferase 16 U/L (5-31); Bilirubin Total 0.6 mg/dL (0.0-1.0); Blood Urea Nitrogen 13 mg/dL (9-16); Calcium 9.4 mg/dL (8.4-10.2); Carbon Dioxide 27 mmol/L (22-29); Chloride 104 mmol/L (96-108); Cholesterol 160 mg/dL (<200); Estimated Glomerular Filt Rate > 60; Glucose Random 131 mg/dL (60-115); HDL Cholesterol 63 mg/dL (>40); LDL Cholesterol Calculated 83 mg/dL (<100); Potassium 4.6 mmol/L (3.3-5.1); Sodium 137 mmol/L (135-145); Total Protein 8.5 g/dL (6.5-8.0); Triglycerides 72 mg/dL (<150)
[2024-03-21 10:21] LABS: Creatinine Urine 83.83 mg/dL
[2024-03-21 10:29] LABS: Folate 11.5 ng/mL (> or = 4.0); Vitamin B12 617 pg/mL (200-900)
[2024-03-21 10:50] LABS: Free T4 (Free Thyroxine) 1.05 ng/dL (0.71-1.85); Thyroid Stimulating Hormone 0.39 uIU/mL (0.32-4.0); Uric Acid 3.6 mg/dL (2.4-5.7)
== END 2024-03-21 08:43 | disposition home or self-care (01) ==
LOC: HO.LAB 08:42
PROVIDERS: PCP Internal Medicine; Visit Provider Internal Medicine
DX: E11.65 Type 2 diabetes mellitus with hyperglycemia (principal); E78.00 Pure hypercholesterolemia, unspecified; E83.59 Other disorders of calcium metabolism; N29 Other disorders of kidney and ureter in diseases classified elsewhere; R30.0 Dysuria
CPT/HCPCS: 36415; 80053; 80061; 81001; 82043; 82306; 82570; 82607; 82746; 83036; 84439; 84443; 84550; 85025

== ENCOUNTER 2024-06-06 08:21 | Outpatient (AMB) | payer OTHER, SELFPAY ==
--- NOTE | 2024-06-06 08:25 | MHC.PC.OV ---
Vital Signs 06/06/24 08:27 Height 5 ft 3 in Weight 220 lb BMI 39.0 BP 122/80 Blood Pressure Location Lt brachial Position Sitting Respiration 20 Pulse 83 Pulse Source Pulse Oximeter Temp 97.3 F Temp Source Temporal Artery Scan Pulse Oximetry (%) 98 Oxygen Delivery Method Room Air Intake Visit Reasons: 3mth f/u Commissioning Manager Required: Yes Commissioning Manager Language: Mobile Crane Operator Name: Used tablet- Yulisa [id number] Accompanied by: Friend Allergies No Known Allergies Allergy (Verified 06/06/24 08:33) Medication List - Last Reconciled 06/06/24 by Raj Rodas MD acetaminophen ER (Tylenol 8 Hour) 650 mg PO Q12H PRN albuterol sulfate 90 mcg/actuation (ProAir HFA) 2 puffs inhalation Q6H PRN alcohol swabs 1 pad topical .QD 90 days amlodipine 2.5 mg PO DAILY aspirin 81 mg PO DAILY atorvastatin 20 mg PO DAILY [Bed Bar As directed] biotin 1 mg PO DAILY blood pressure monitor (Blood Pressure Kit) As directed blood sugar diagnostic As directed blood sugar diagnostic (FreeStyle Lite Strips) As directed check the BS QD blood-glucose meter (FreeStyle Lite Meter kit) As directed docusate sodium (Colace) 100 mg PO DAILY PRN 90 days empagliflozin (Jardiance) 25 mg PO DAILY 90 days [Grab Bar By Toilet As directed] lancets As directed lancets (FreeStyle Lancets) As directed check BS QD lisinopril 30 mg PO DAILY meloxicam 7.5 mg PO DAILY [Non Slip Rug As directed] [Non-Slip Mat ] potassium citrate ER 15 mEq PO TID 30 days [shower wand As directed] [Suction grab bars As directed] tirzepatide 5 mg (0.5 mL) subcut QWEEK 30 days [Weekly Medicaton Box As directed] Tobacco use date assessed: 06/06/24 Dental Screening Dental Screen Date: 06/06/24 Did you have a dental visit in the last 12 months?: Yes Did you have a dental problem in the last 6 months where you did not have access to dental care?: No Was dental information given to patient?: Patient has dentist HPI 3mth f/u HPI Details VOYCE interpret complains of waking up with sore throat and nasal congestion, started 1 day, no fevers. states that pain on the kidney?? complains of low back pain- [facility] Medical History (Updated 06/06/24 @ 09:05 by Raj Rodas MD) Colonoscopy refused Colon cancer screening Increased abdominal girth Dizziness Breast cancer screening by mammogram Anemia History of renal calculi Type 2 diabetes mellitus with hyperglycemia Hypercholesterolemia Obesity Medullary sponge kidney Hypertension Menorrhagia Vitamin D deficiency Surgical History History of section History of laparoscopic cholecystectomy Family History (Updated 11/28/20 @ 13:43 by RAIN Delong) Father Pancreatic cancer Hypertension Diabetes Mother Breast cancer Hypertension Brother Hypertension Paternal Grandfather Myocardial infarction Social History Housing: House Alcohol intake: never Patient Tobacco Use Status: Never used Tobacco Tobacco use type: Cigarette e-Cigarette/Vaping Use: Never Used Second Hand Smoke Exposure: No service: No Current occupational status: unemployed Cognitive needs: No Hearing needs: No Vision needs: No Questionnaire Thrive Questionnaire Date Thrive assessed: 06/06/24 I am a: Patient What is your living situation today?: I have a steady place to live Within the past 12 months, did the food you bought not last and you didn't have the money to get more?: Never true Within the past 12 months, did you worry whether your food would run out before you got money to buy more?: Never true Do you have trouble paying for medicines?: No Do you have trouble getting transportation to medical appointments?: No Do you have trouble paying your heating and electricity bill?: No Do you have trouble taking care of your child, family member or friend?: No Do you have trouble with day-to-day activities such as bathing, preparing meals, shopping, managing finances, etc.?: No Are you currently unemployed and looking for a job?: I choose not to answer this question Are you interested in more education?: No Please select the resources that you would like help with: None Currently or been in a relationship where the following occur: No concerns reported THRIVE Score: 0 AUDIT C Alcohol Use Questionnaire (AUDIT-C) 1. How often do you have a drink containing alcohol?: Never 3. How often do you have six or more drinks on one occasion?: Never Total Score: 0 Score Reviewed/Action Taken: No ANGELA-7 AMB Questionnaire ANGELA-7 Date ANGELA - 7 assessed: 03/14/24 Source: Developed by Drs. Ender Rosario, Gale Navarro, Alejandro Cabrera and colleagues, with an educational bing from [employer]. Physical exam (Primary Care) Vital Signs: Last Vital Signs Temp 97.3 F 06/06/24 08:27 Pulse 83 06/06/24 08:27 Resp 20 06/06/24 08:27 BP 122/80 06/06/24 08:27 Pulse Ox 98 06/06/24 08:27 Oxygen Delivery Method Room Air 06/06/24 08:27 BMI result Body Mass Index 39.0 Tobacco/Smoking Status: Tobacco use Status Tobacco use date assessed 06/06/24 06/06/24 08:43 Patient Tobacco Use Status Never used Tobacco 06/06/24 08:27 Tobacco use type Cigarette 06/06/24 08:27 e-Cigarette/Vaping Use Never Used 06/06/24 08:27 Thrive Assessment: Date of Thrive Assessment Date Thrive assessed 06/06/24 06/06/24 08:43 Currently or been in a relationship where the following occur: No concerns reported Const General: alert; No acute distress Eyes Conjunctivae: conjunctivae normal Resp Auscultation: clear to auscultation bilaterally Cardio Rate: regular rate Rhythm: regular rhythm GI Inspection: Yes normal to inspection Extrem General: Yes normal to inspection and No edema Results AMB Hemoglobin A1c AMB Hemoglobin A1c 6.9 % Last Edit by Priscilla Perdomo CMA on 06/06/24 08:46 Coding Level of Care Code Complex EM visit Add On G2211 Diagnoses Type 2 diabetes mellitus with hyperglycemia, unspecified whether termination clerk insulin use E11.65 Diabetes mellitus termination clerk insulin use: unspecified half-way insulin use status Essential hypertension I10 Hypertension type: essential hypertension Hypercholesterolemia E78.00 Class 3 severe obesity due to excess calories with serious comorbidity and body mass index (BMI) of 40.0 to 44.9 in adult E66.01; Z68.41 Obesity type: due to excess calories Obesity classification: adult class 3 (BMI >= 40) Serious obesity comorbidity presence: with serious comorbidity Body mass index: BMI 40.0-44.9 Fatty liver K76.0 Nephrolithiasis N20.0 Back pain M54.9 Allergy T78.40XA Assessment & Plan Assessment & Plan (1) Type 2 diabetes mellitus with hyperglycemia: Comment: Abril 06/2023 [facility] [address] [id number], 12/04/2023 Code(s): E11.65 - Type 2 diabetes mellitus with hyperglycemia Category: Medical Qualifiers: Diabetes mellitus termination clerk insulin use: unspecified termination clerk insulin use status Qualified Code(s): E11.65 - Type 2 diabetes mellitus with hyperglycemia Plan: Decrease the amount of carbohydrate intake, pasta, bread, rice and potatoes are all sugar and that is aside from all the sweet stuff, remember that fruits are good but they are Sweet also. Hemoglobin A1c goal of less than 6.5. Patient takes Jardiance tirzepatide and metformin (2) Hypertension: Code(s): I10 - Essential (primary) hypertension Category: Medical Qualifiers: Hypertension type: essential hypertension Qualified Code(s): I10 - Essential (primary) hypertension Plan: Continue with blood pressure medication. Decrease salt intake and exercise on lisinopril 30 mg once a day amlodipine 2.5 mg once a day (3) Hypercholesterolemia: Code(s): E78.00 - Pure hypercholesterolemia, unspecified Category: Medical Plan: Avoid fried foods, chicken skin, eggs, butter margarine, pastries and meat. Be it pork or beef they have a lot of cholesterol patient is on atorvastatin 20 mg once a day (4) Obesity: Code(s): E66.9 - Obesity, unspecified Category: Medical Qualifiers: Obesity type: due to excess calories Obesity classification: adult class 3 (BMI >= 40) Serious obesity comorbidity presence: with serious comorbidity Body mass index: BMI 40.0-44.9 Qualified Code(s): E66.01 - Morbid (severe) obesity due to excess calories; Z68.41 - Body mass index [BMI]40.0-44.9, adult Plan: Diet and exercise (5) Fatty liver: Code(s): K76.0 - Fatty (change of) liver, not elsewhere classified Category: Medical Plan: Low-fat diet and exercise (6) Nephrolithiasis: Code(s): N20.0 - Calculus of kidney Category: Medical Plan: Patient follows up with urology and on surveillance. Meanwhile advised patient to continue with the potassium citrate and increase oral fluids (7) Back pain: Code(s): M54.9 - Dorsalgia, unspecified Category: Medical (8) Allergy: Code(s): T78.40XA - Allergy, unspecified, initial encounter Category: Medical Plan History of Present Illness The patient is a 49-year-old female presenting with sore throat and nasal congestion attributed to recurring seasonal allergies. She reported symptom onset yesterday with no associated fever, curtailing her usual seasonal allergy pattern. Concurrently, she follows up for nephrolithiasis management, describing significant generalized back pain, which persists despite the absence of ureteral obstruction and active kidney stones. The patient is also undergoing routine diabetes management, monitoring her HbA1c which is currently 6.9%, slightly above the ideal target. She maintains a diet with reduced sugar intake but faces barriers to physical activity due to intense back pain. Additionally, her hypertension and hypercholesterolemia are managed through current medications, with recent blood evaluations confirming stable liver functionality and manageable LDL cholesterol levels. Health Maintenance - Diet modification with a focus on low-fat intake. - Encouragement of increased physical activity to balance caloric intake and activity level. - Hydration advice: increase fluids to 2 liters per day for nephrolithiasis management. - Scheduled follow-up on nephrolithiasis with CAT scan in 6 months. - HbA1c management and goal setting: target less than 6.5%. - Continuous monitoring of liver function and LDL cholesterol levels. Social History - Reports experiencing recurring pain limiting physical activities such as sweeping or brooming. - Acknowledges difficulty engaging in exercise due to musculoskeletal discomfort. - Previously had assistance at home but currently lacking due to personal circumstances. Review of Systems - Ear, Nose, Throat: Reports sore throat and nasal congestion. Denies fever. - Musculoskeletal: Reports significant back pain. - Respiratory: Denies wheezing or respiratory distress. Physical Exam - HEENT- Throat appeared normal, no redness observed. - Musculoskeletal- Noted muscle tension and discomfort in trapezius region. Results - Labs: Blood sugar at 131 mg/dL, HbA1c at 6.9%. - Liver function tests normal with LDL at 83 mg/dL. - Urine test showed no proteinuria. - Previous Cologuard test negative. - Recent evaluation of kidney function normal. Plan I recommended [id number] allergy treatments like Claritin or Marifer to manage her symptoms attributed to seasonal allergies. For nephrolithiasis-related back pain, a muscle relaxant was suggested, ensuring avoidance of stronger medications to protect kidney function. Concerning her diabetes, I stress the significance of physical activity in managing her HbA1c and discuss potentially adjusting medication if necessary. Ongoing monitoring of hypertension and hypercholesterolemia remains important, with her current medications to be continued. The necessity of hydration and regulated dietary intake is communicated, alongside adherence to her current pharmacotherapy to support overall health. Follow-up was scheduled in three months for reassessment and to evaluate her adherence to the management plan. Patient was informed and verbally consented to the use of an ambient scribe for clinic note documentation during this visit. Discussion Notes I discussed with the patient her current symptoms and the management options available for her sore throat and congestion, which appear related to seasonal allergies. I recommended Claritin or Marifer for non-drowsy relief and a nasal spray as part of her treatment plan. For her nephrolithiasis, we emphasized continued hydration and use of potassium citrate, while addressing her musculoskeletal back pain with a muscle relaxant. She was informed about the non-obstructive nature of her kidney stones and the need for regular exercise to support her diabetes management, with a goal of reducing her HbA1c. I also reviewed her comprehensive medication approach to hypertension and hypercholesterolemia, ensuring liver and renal function stability. I ensured the patient understood the importance of lifestyle modifications, and we agreed on a follow-up in three months for ongoing evaluation and support. I provided contact information for any immediate concerns or changes in her condition. Patient Instructions - Use Claritin or Marifer daily for allergy relief as needed. - Take prescribed muscle relaxant only when needed for back pain. - Maintain hydration with at least 2 liters of fluid daily. - Continue with current diabetes, hypertension, and cholesterol medications as prescribed. - Incorporate regular physical activity gradually into daily routine. - Schedule follow-up appointment in three months. - Contact healthcare provider for any sudden or unusual changes in symptoms. Orders: Orders AMB Hemoglobin A1c Today E11.65 - Type 2 diabetes mellitus with hyperglycemia Medications: New meloxicam 7.5 mg PO DAILY 30 tabs 0RF M54.9 - Dorsalgia, unspecified fluticasone propionate 50 mcg/actuation (Flonase Allergy Relief) administer into each nostril 2 sprays intranasal DAILY 16 grams 0RF T78.40XA - Allergy, unspecified, initial encounter Changed From tirzepatide (Mounjaro) for 4 weeks 2.5 mg (0.5 mL) subcut QWEEK 2 mL 0RF E11.65 - Type 2 diabetes mellitus with hyperglycemia To tirzepatide for 4 weeks 5 mg (0.5 mL) subcut QWEEK 30 days 2.5 mL 2RF E11.65 - Type 2 diabetes mellitus with hyperglycemia
[2024-06-06 08:27] VITALS: BP 122/80; PULSE 83; RESP 20; TEMP 36.3; O2SAT 98; BMI 39.0
--- OUTSIDE RECORDS SUMMARY | 2024-06-06 08:39 | XMS_ITS | Data Portability ---
Author Organization [facility] [place] - [facility] Address [address] [place] [phone] Care Team Providers Care Vocational Horticulture Instructor Name Role Phone [facility] Referring Provider Assessment No assessment recorded. Plan of Treatment Reminders Order Date Submit Date Provider Last Modified By Organization Details Last Modified Time Details Appointments None recorded. Lab culture, urine 2022 023 [facility] (Centralized Electronic Ordering - All Locations), Patient Can Go To The Location Of Their Choice, 23:41:55 urinalysis , dipstick 2022 023 [facility], [address] [place] [address], [phone] 19:33:43 Referral None recorded. Procedures None recorded. Surgeries None recorded. Imaging None recorded. Medication Orders Macrobid 100 mg capsule 2022 023 [id number], [address], [place], [id number], 19:33:56 Patient TargetsNo targets recorded. Patient InstructionsNo instructions recorded. Reason for Referral None Reported. Results Created Date Observation Date Name Description Value Unit Range Abnormal Flag Note LastModifiedBy Organization Detail LastModifiedTime 01/04/2001/03/2023 URINE CULTU RE specimen description URINE Not Available [facility] (Centralized Electronic Ordering - All Locations) Patient Can Go To The Location Of Their Choice, 01/04/2023 23:41:55 01/04/2001/03/2023 URINE CULTU RE special requests NONE Not Available [facility] (Centralized Electronic Ordering - All Locations) Patient Can Go To The Location Of Their Choice, 01/04/2023 23:41:55 01/04/2001/04/2023 URINE CULTU RE culture <10,00 0 COL/ML abnormal Not Available [facility] (Centralized Electronic Ordering - All Locations) Patient Can Go To The Location Of Their Choice, [id number] 01/04/2023 23:41:55 01/04/2001/04/2023 URINE CULTU RE report status FINAL 2022 Not Available [facility] (Centralized Electronic Ordering - All Locations) Patient Can Go To The Location Of Their Choice, [id number] 01/04/2023 23:41:55 01/04/2001/03/2023 urina lysis , dipst ick Leukocytes trace Not Available [facility] - [facility] [address] [place] [address], [phone] 01/03/2023 19:32:55 01/04/2001/03/2023 urina lysis , dipst ick Nitrite negati ve Not Available [facility] - [facility] [address] [place] [address], [phone] 01/03/2023 19:32:55 01/04/20 23 01/03/2023 urina lysis , dipst ick Blood negati ve Not Available Main - [facility] [address] [place] [address], [phone] 01/03/2023 19:32:55 Result Notes None recorded. Medical [...] SNOMED-CT Code Diagnosis ICD10 Code Diagnosis Note 52588 Eulalio Ring MD Main - [facility] [address] [place] [phone] 01/03/2023 19:29:31 01/04/2023 10:48:19 Right flank pain [id number] R10.9 Patient reports one day of dysuria, [...] Concerns Section Related Observation LastModified by Organization Detai ls LastModified Time None Recorded Concern Status LastModified by Organization Details LastModified Time None Recorded Advance Directives Directive None Recorded Payers Encounter Date Sequence Insurance Name Policy Number Policy White Covered Member ID White Member ID Guarantor Name 01/03/2023 1 [facility] - DOS ON OR AFTER 2022 - DUAL ELIGIBLE - LONGTERM OPTIONS AND ONE CARE (MEDICARE REPLACEMENT/ADV ANTAGE - HMO) Xiomy Henderson [id number] Xiomy Henderson Notes Date Note Type Note [...] ................. ................. ................. ................. ................. ................. ..... Canvas Repairer Note From Ricky Jensen: Pt reports dysuria, [...] - NIT, - BLO. UC [facility] to [facility]. [facility] contacted and sent rx for macrobid. Pt instructed to stay well hydrated, f/u with urologist tomorrow morning and to seek emergent medical care for new or worsening sx, which are reviewed with her. [facility] Lab Orders: culture, urine: Performed urinalysis, dipstick: Performed ................. ................. ................. ................. ................. ................. ................. ................. ..... Disposition: Fulfilled Eulalio Ring MD [address] [place] [address],[address] [facility], [place], [address], [place] 01/03/2023 19:48:37 OBGyn Episode No OBEpisode recorded.
--- OUTSIDE RECORDS SUMMARY | 2024-06-06 08:39 | XMS_ITS | Clinical Summary ---
Author Organization [facility] Address [address] [address] Phone Care Team Providers Care Supervisor Mail Carriers Name Role Phone Raj Rodas MD Primary Care Provider [phone] Allergies No known active allergies Medications amLODIPine [...] by mouth 1 (one) time each day 30 tablet 1 04/09/2024 Active Active Problems Problem Noted Date Diagnosed Date Hypo-osmolality and hyponatremia 11/07/2023 Iron deficiency anemia, not otherwise specified 11/07/2023 Blood in urine 04/28/2020 Hypertension 04/28/2020 Medullary sponge kidney 04/28/2020 Renal stone 04/28/2020 Encounters Date Type Department Care Team Description 04/09/2024 Refill [facility]. [address] [phone] Marie Keith [place] from Last 3 Months Immunizations Immunization Administration Dates Next Due Pneumococcal Polysaccharide 11/30/2013 [...] Office Visit [facility] [address] [phone] Gala Redman ARNP [address] [address] Health Maintenance Due Date Last Done Comments Hepatitis B Vaccine (1 of 3 - 19+ 3-dose series) 01/09/1996 Pneumococcal Vaccine: Peds ( 0 to 5 Years) and At-Risk Patients (6 to 49 Years) (2 of 2 - PCV) 11/30/2014 11/30/2013 Diabetes: Ophthalmology Exam 05/03/2022 Diabetes: Pedal Pulse Checked 05/03/2022 Diabetes: Sensory Foot Exam 05/03/2022 Diabetes: Visual Foot Exam 05/03/2022 Diabetes: Hemoglobin A1C 08/05/2022 023, 04/27/2021, 11/06/2020, Additional history exists Influenza Vaccine (Season Ended) 2024 Pneumococcal Vaccine: 50+ Years Discontinued 4 Procedures Procedure Name Priority Date/Time Associated Diagnosis Comments HEMOGLOBIN A1C Routine 05/05/2022 10:44 AM EDT Iron deficiency anemia, not otherwise specified Medullary sponge kidney Renal stone from Last 3 Months or Most Recently Relevant to Health Maintenance Results * (ABNORMAL) Hemoglobin A1c (05/05/2022 10:44 AM EDT) Hemoglobin A1C 6.6(H) (4.0-5.6) % [facility] Comment: MONITORING: In known diabetic patients, hemoglobin A1c targets should be discussed with health care provider. DIAGNOSTIC USE: ??The [place] Diabetes Association (ADA) and the World Health [...] Supplement 1 Testing performed or reported by [facility], a Service of [facility], [address] [place] [id number] Shilpi Alvarado MD, Hand Or Machine Paster [facility]# [id number] Blood (Blood, Venous) 05/05/2022 10:44 AM EDT 05/05/2022 10:50 AM EDT us Delvis Caban MD LAB BLOOD ORDERABLES Final Re sult [facility] from Last 3 Months or Most Recently Relevant to Health Maintenance Insurance * Guarantor: Xiomy Sofia Account Type Relation to Patient Date of Phone Billing Address Personal/Family Self [address] ([id number]) * Guarantor: Xiomy Sofia Account Type Relation to Patient Date of Phone Billing Address Personal/Family Self [address] ([id number]) Care Teams Supervisor Mail Carriers Relationship Specialty Start Date End Date Raj Rodas MD [address] [place], [place] PCP - General 02/25/20
--- OUTSIDE RECORDS SUMMARY | 2024-06-06 08:39 | XMS_ITS | Clinical Summary ---
Author Organization [facility] Address [address] [place] [address] Care Team Providers Care Brick Handler Name Role Phone Raj Rodas MD Primary Care Provider [phone] Encounters Date Type Department Care Team Description 03/29/[address] [facility] - Main Lab [address] [facility] [place] [phone] Keyon Garcia PA Benign essential microscopic hematuria from Last 3 Months Surgical History Surgery Date Site/Laterality Comments OTHER SURGICAL HISTORY N/A PROCEDURE: [place] TOT ABD HYST W/PARAORTIC & PELVIC LYMPH NODE FERN CHOLECYSTECTOMY N/A PROCEDURE: [place] LAPAROSCOPY SURG CHOLECYSTECTOMY Medical History Medical History Date Comments Type 2 diabetes mellitus (CM S/HCC V24, CMS/HCC V28) 05/07/2021 DX:Type 2 diabetes mellitus (HCC) Obesity [...] at Not on file Legal Sex Female 2:14 AM EST Gender Identity Not on file Sexual [...] - 2023-2 5 season) 2023 Influenza Vaccine (Season Ended) 2024 HIB Vaccines Aged Out No longer eligi [...] patient's age to complete this topic Meningococcal B Vaccine Aged Out No l onger eligible based on patient's age to complete [...] Procedure Name Priority Date/Time Associated Diagnosis Comments AP OUTSIDE CONSULT Routine 03/22/2024 12 :00 AM EST Benign essential microscopic hematuria NANDA SCREENING DIGITAL Routine 01/30/2018 6:02 PM EST Encounter for screening mammogram for malignant neoplasm of breast from Last 3 Months or Most Recently Relevant to Health Maintenance Results * Anatomic pathology outside consult (03/22/2024 12:00 AM EST) Final Diagnosis A. Urine, Voided, ([id number]): Negative for high grade urothelial carcinoma. Acute inflammatory cells are present. Results of UroVysion fluorescence in situ hybridization (FISH) testing: CEP3: Normal CEP7: Normal CEP17: Normal LSI 9p21: Normal Interpretation: Normal profile Controls stained appropriately. Note: The results are intended as a screening device and should be interpreted in association with other clinical and pathological findings. 04/03/2024 2:[address] [facility] Clinical Information Benign essential microscopic hematuria R31.1 Urine Cytology/FISH (now) 04/03/2024 2:[address] [facility] Gross Description A. Urine, Voided, ([id number]): Received one ThinPrep slide for cytology and one ThinPrep slide for UroVysion FISH 04/03/2024 2:[address] [facility] Disclaimer Unless otherwise specified, all tissue is 10% NB formalin fixed and paraffin embedded. Technical pathology services provided by [facility] at [address], [place] [address] (CLIA #[id number]/Brandi Villafana MD, Respiratory Support Technician) 04/03/2024 2:[address] [facility] Tissue Urine specimen from urethra / Unknown 03/22/2024 03/29/2024 2:18 PM EST us Keyon SAMUEL LAB PATHOLOGY ORDERAB LES Final Result [facility] [address] [place] [address], * NANDA SCREENING DIGITAL (01/30/2018 6:02 PM EST) Anatomical Region Laterality Modality Mammography 01/30/2018 2:27 PM EST Narrative 01/30/2018 6:02 PM EST [facility] Diagnostic Imaging Department [address] [place] [address] Patient: ??XIOMY AMEZCUA ?/Age/Sex: 1975 - 43 - F Unit#: ??[id number] ? Location/Status: ??SPDIMAM/REG CLI ? Mnemonic/Ordering Site: ??DIGSC/SPMAM Ordering Physician: ??RUCHI MITCHELL MD [facility] Screening Digital - 01/30/18 - 1502 INDICATION: SCREENING COMPARISON: No prior studies are available for comparison. ??Baseline exam FINDINGS: CC and MLO views of the breasts were obtained, using full field digital mammography with 3D tomosynthesis views in the MLO projection. Computer aided detection with the [employer] 7.2-H was employed. A cleavage view was [...] date for the next mammogram. (G0202 / [id number]) , ??[id number] Dictating Physician: ??RENNY FORTUNE MD Electronically Signed by: ??RENNY FORTUNE MD Dic Date/Time: ??01/30/18 175 Sign date/Time: ??01/30/18 180 Procedure Note Renny Fortune MD - 02/02/2022 [facility] Diagnostic Imaging Department [address] [place] [address] Patient: XIOMY AMEZCAU D.O.B./Age/Sex: 1975 - 43 - F Unit#: [id number] Location/Status: SPDIMAM/REG CLI Mnemonic/Ordering Site: [facility] Ordering Physician: RUCHI MITCHELL MD [facility] Screening Digital - 01/30/18 - 1502 INDICATION: SCREENING COMPARISON: No prior studies are available for comparison. Baselineexam FINDINGS: CC and MLO views of the breasts were obtained, using full field digital mammography with 3D tomosynthesis views in the MLO projection. Computeraided detection with the [employer] 7.2-H was employed. A cleavage view wasalso [...] target date for the next mammogram. G0202 [id number] , [id number] Dictating Physician: RENNY FORTUNE MD Electronically Signed by: RENNY FORTUNE MD Dic Date/Time: 01/30/18 1759 Sign date/Time: 01/30/18 180 Ruchi Mitchell MD IMG BI PROCEDURES Final Res ult from Last 3 Months or Most Recently Relevant to Health Maintenance Insurance [facility] [employer] MEDICAID Care Teams Brick Handler Relationship Specialty Start Date End Date Raj Rodas MD [address] [place] [address] [address] [facility] [place] [address] PCP - General Internal Medicine 04/23/21
--- OUTSIDE RECORDS SUMMARY | 2024-06-06 08:39 | XMS_ITS | Encounter Summary ---
Author Organization [facility] Address [address] [place] [phone] Phone Care Team Providers Care Adjunct Writing Instructor Name Role Phone Raj Rodas MD Primary Care Provider [phone] Encounter Details Date Type Department Care Team ([facility] Contact Info) Description 12/07/2023 Office Communication [facility] [address] [place] [phone] Gala Redman ARNP [address] [address] Social History Tobacco Use Types [...] Upcoming Encounters Date Type Department Care Team ([facility] Contact Info) Description 12/06/2024 1:00 PM EDT Office Visit [facility] [address] [phone] Gala Redman ARNP [address] [phone] documented as of this encounter Visit Diagnoses Not on filedocumented in this encounter Care Teams Adjunct Writing Instructor Relationship Specialty Start Date End Date Raj Rodas MD [address] [place], [place] PCP - General 02/25/20 documented as of this encounter
--- OUTSIDE RECORDS SUMMARY | 2024-06-06 08:39 | XMS_ITS | Encounter Summary ---
Author Organization [facility] Address [address] [place] [address] Care Team Providers Care Physician Practice Administrator Name Role Phone Raj Rodas MD Primary Care Provider [phone] Encounter Details Date Type Department Care Team (Late st Contact Info) Description 03/29/2024 Lab Requisition [facility] - Main Lab [address] [facility] [place] [phone] Keyon Garcia PA [address] [place] [phone] Benign essential microscopic hematuria Social History Tobacco Use Types Packs/Day Years [...] as of this encounter Plan of Treatment Not on file documented as of this encounter Procedures Procedure Name Priority Date/Time Associated Diagnosis Comments AP OUTSIDE CONSULT Routine 03/22/2024 12 :00 AM EST Benign essential microscopic hematuria documented in this encounter Results * Anatomic pathology outside consult (03/22/2024 12:00 AM EST) Final Diagnosis A. Urine, Voided, ([id number]): Negative for high grade urothelial carcinoma. Acute inflammatory cells are present. Results of UroVysion fluorescence in situ hybridization (FISH) testing: CEP3: Normal CEP7: Normal CEP17: Normal LSI 9p21: Normal Interpretation: Normal profile Controls stained appropriately. Note: The results are intended as a screening device and should be interpreted in association with other clinical and pathological findings. 04/03/2024 2:05 PM [facility] Clinical Information Benign essential microscopic hematuria R31.1 Urine Cytology/FISH (now) 04/03/2024 2:05 PM [facility] Gross Description A. Urine, Voided, ([id number]): Received one ThinPrep slide for cytology and one ThinPrep slide for UroVysion FISH 04/03/2024 2:05 PM [facility] Disclaimer Unless otherwise specified, all tissue is 10% NB formalin fixed and paraffin embedded. Technical pathology services provided by [facility] at [address] [facility] [address] [place] [address] (CLIA #[id number]/Brandi Villafana MD, Balancer Scale) 04/03/2024 2:05 PM [facility] Tissue Urine specimen from urethra / Unknown 03/22/2024 03/29/2024 2:18 PM EST us Keyon SAMUEL LAB PATHOLOGY ORDERAB LES Final Result [facility] [address] [place] [address], documented in this encounter Visit Diagnoses Diagnosis Benign essential microscopic hematuria documented in this encounter Care Teams Physician Practice Administrator Relationship Specialty Start Date End Date Raj Rodas MD [address] [place] [address] [address] [facility] [place] [address] PCP - General Internal Medicine 04/23/21 documented as of this encounter
== END 2024-06-06 09:10 | disposition home or self-care (01) ==
LOC: HO.HMCH 08:22
PROVIDERS: PCP Internal Medicine; Visit Provider Internal Medicine
DX: E11.65 Type 2 diabetes mellitus with hyperglycemia (principal); E66.01 Morbid (severe) obesity due to excess calories; Z68.41 Body mass index [BMI] 40.0-44.9, adult; I10 Essential (primary) hypertension; E78.00 Pure hypercholesterolemia, unspecified; K76.0 Fatty (change of) liver, not elsewhere classified; N20.0 Calculus of kidney; M54.9 Dorsalgia, unspecified; T78.40XA Allergy, unspecified, initial encounter

== ENCOUNTER → 2024-06-06 08:21 | Outpatient (BNVA) | payer OTHER, SELFPAY | PROVIDERS: PCP Internal Medicine; Visit Provider Internal Medicine | DX: M54.50 Low back pain, unspecified (principal); E11.65 Type 2 diabetes mellitus with hyperglycemia; I10 Essential (primary) hypertension; E78.00 Pure hypercholesterolemia, unspecified; E66.01 Morbid (severe) obesity due to excess calories; K76.0 Fatty (change of) liver, not elsewhere classified; N20.0 Calculus of kidney; M54.9 Dorsalgia, unspecified; Z91.09 Other allergy status, other than to drugs and biological substances; Z68.41 Body mass index [BMI] 40.0-44.9, adult; Z87.442 Personal history of urinary calculi | CPT/HCPCS: 83036; 99212 ==

== ENCOUNTER 2024-08-30 16:12 | Outpatient (AMB) | payer OTHER, SELFPAY ==
--- NOTE | 2024-08-30 16:15 | A.OFFPC_ITS ---
Vital Signs 08/30/24 16:16 Height 5 ft 3 in Weight 209 lb 4 oz BMI 37.1 BP 114/72 Blood Pressure Location Lt brachial Position Sitting Pulse 88 Pulse Source Pulse Oximeter Temp 97.5 F Temp Source Temporal Artery Scan Pulse Oximetry (%) 98 Oxygen Delivery Method Room Air Intake [place] [facility] [place] infection Accompanied by: Friend Allergies No Known Allergies Allergy (Verified 08/30/24 16:20) Medication List - Last Reconciled 08/30/24 by Raj Rodas MD acetaminophen ER (Tylenol 8 Hour) 650 mg PO Q12H PRN albuterol sulfate 90 mcg/actuation 2 puffs inhalation Q6H PRN alcohol swabs 1 pad topical .QD 90 days amlodipine 2.5 mg PO DAILY aspirin 81 mg PO DAILY atorvastatin 20 mg PO DAILY [Bed Bar As directed] biotin 1 mg PO DAILY blood pressure monitor (Blood Pressure Kit) As directed blood sugar diagnostic As directed blood sugar diagnostic (FreeStyle Lite Strips) As directed check the BS QD blood-glucose meter (FreeStyle Lite Meter kit) As directed docusate sodium (Colace) 100 mg PO DAILY PRN 90 days fluticasone propionate 50 mcg/actuation (Flonase Allergy Relief) 2 sprays intranasal DAILY [Grab Bar By Toilet As directed] lancets As directed lancets (FreeStyle Lancets) As directed check BS QD lisinopril 30 mg PO DAILY meloxicam 7.5 mg PO DAILY metformin ER (Glumetza) 1,000 mg PO DAILY [Non Slip Rug As directed] [Non-Slip Mat ] potassium citrate ER 15 mEq PO TID 30 days [shower wand As directed] [Suction grab bars As directed] tirzepatide 5 mg (0.5 mL) subcut QWEEK 30 days [Weekly Medicaton Box As directed] Tobacco use date assessed: 08/30/24 Dental Screening Dental Screen Date: 08/30/24 Did you have a dental visit in the last 12 months?: Yes Did you have a dental problem in the last 6 months where you did not have access to dental care?: No Was dental information given to patient?: Patient has dentist [facility] Medical History Colonoscopy refused Colon cancer screening Increased abdominal girth Dizziness Breast cancer screening by mammogram Anemia History of renal calculi Type 2 diabetes mellitus with hyperglycemia Hypercholesterolemia Obesity Medullary sponge kidney Hypertension Menorrhagia Vitamin D deficiency Surgical History History of section History of laparoscopic cholecystectomy Family History Father Pancreatic cancer Hypertension Diabetes Mother Breast cancer Hypertension Brother Hypertension Paternal Grandfather Myocardial infarction Social History Housing: House Alcohol intake: never Patient Tobacco Use Status: Never used Tobacco Tobacco use type: Cigarette e-Cigarette/Vaping Use: Never Used Second Hand Smoke Exposure: No service: No Current occupational status: unemployed Cognitive needs: No Hearing needs: No Vision needs: No Questionnaire PHQ-9 Over the last 2 weeks, how often have you been bothered by any of the following problems? 1. Little interest or pleasure in doing things: not at all 2. Feeling down, depressed, or hopeless: not at all 3. Trouble falling or staying asleep, or sleeping too much: not at all 4. Feeling tired or having little energy: not at all 5. Poor appetite or overeating: nearly every day 6. Feeling bad about yourself - or that you are a failure or have let yourself or your family down: not at all 7. Trouble concentrating on things, such as reading the newspaper or watching television: not at all 8. Moving or speaking so slowly that other people could have noticed. Or the opposite - being so fidgety or restless that you have been moving around a lot more than usual: not at all 9. Thoughts that you would be better off or of hurting yourself in some way: not at all Total score: 3 Source: Developed by Drs. Ender Rosario, Gale Navarro, Alejandro Cabrera and colleagues, with an educational bing from [employer]. Thrive Questionnaire Date Thrive assessed: 06/06/24 I am a: Patient What is your living situation today?: I have a steady place to live Within the past 12 months, did the food you bought not last and you didn't have the money to get more?: Never true Within the past 12 months, did you worry whether your food would run out before you got money to buy more?: Never true Do you have trouble paying for medicines?: No Do you have trouble getting transportation to medical appointments?: No Do you have trouble paying your heating and electricity bill?: No Do you have trouble taking care of your child, family member or friend?: No Do you have trouble with day-to-day activities such as bathing, preparing meals, shopping, managing finances, etc.?: No Are you currently unemployed and looking for a job?: No Are you interested in more education?: No Please select the resources that you would like help with: None Currently or been in a relationship where the following occur: I choose not to answer THRIVE Score: 0 AUDIT C Alcohol Use Questionnaire (AUDIT-C) 1. How often do you have a drink containing alcohol?: Never 3. How often do you have six or more drinks on one occasion?: Never Total Score: 0 ANGELA-7 AMB Questionnaire ANGELA-7 Date ANGELA - 7 assessed: 03/14/24 Feeling nervous, anxious, or on edge: 0 = Not at all Not being able to stop or control worryin = Not at all Worrying too much about different things: 0 = Not at all Trouble relaxin = Not at all Being so restless that it is hard to sit still: 0 = Not at all Becoming easily annoyed or irritable: 0 = Not at all Feeling afraid as if something awful might happen: 0 = Not at all Total ANGELA-7 score (0-4 normal; 5-9 mild; 10-14 moderate; 15-21 severe): 0 Source: Developed by Drs. Ender Rosario, Gale Navarro, Alejandro Cabrera and colleagues, with an educational bing from [employer]. Physical exam (Primary Care) Vital Signs: Last Vital Signs Temp 97.5 F 08/30/24 16:16 Pulse 88 08/30/24 16:16 BP 114/72 08/30/24 16:16 Pulse Ox 98 08/30/24 16:16 Oxygen Delivery Method Room Air 08/30/24 16:16 BMI result Body Mass Index 37.1 Tobacco/Smoking Status: Tobacco use Status Tobacco use date assessed 08/30/24 08/30/24 16:21 Patient Tobacco Use Status Never used Tobacco 08/30/24 16:21 Tobacco use type Cigarette 08/30/24 16:21 e-Cigarette/Vaping Use Never Used 08/30/24 16:21 PHQ-9: PHQ-9 Score PHQ-9: Total score 3 08/30/24 16:21 Thrive Assessment: Date of Thrive Assessment Date Thrive assessed 06/06/24 08/30/24 16:21 Currently or been in a relationship where the following occur: I choose not to answer Const General: alert; No acute distress Eyes Conjunctivae: conjunctivae normal Resp Auscultation: clear to auscultation bilaterally Cardio Rate: regular rate Rhythm: regular rhythm GI Inspection: Yes normal to inspection Extrem General: Yes normal to inspection and No edema Results AMB Hemoglobin A1c AMB Hemoglobin A1c 6.0 % Last Edit by Lakeisha Perez CMA on 08/30/24 16:25 Results Reviewed Results Reviewed: Laboratory Last Values Hgb A1c (Clinic) 6.0 % (4.0-6.0) 08/30/24 16:21 Coding Level of Care Code Est Pt Level 4 (22624) Complex EM visit Add On G2211 Diagnoses Type 2 diabetes mellitus with hyperglycemia, unspecified whether local company intermodal truck driver insulin use E11.65 Diabetes mellitus local company intermodal truck driver insulin use: unspecified local company intermodal truck driver insulin use status Essential hypertension I10 Hypertension type: essential hypertension Hypercholesterolemia E78.00 Class 3 severe obesity due to excess calories with serious comorbidity and body mass index (BMI) of 40.0 to 44.9 in adult E66.01; Z68.41 Obesity type: due to excess calories Obesity classification: adult class 3 (BMI >= 40) Serious obesity comorbidity presence: with serious comorbidity Body mass index: BMI 40.0-44.9 Nephrolithiasis N20.0 Plantar fasciitis of right foot M72.2 Assessment & Plan Assessment & Plan (1) Type 2 diabetes mellitus with hyperglycemia: Comment: Abril 06/2023 [facility] [address] [id number], 12/04/2023 Code(s): E11.65 - Type 2 diabetes mellitus with hyperglycemia Category: Medical Qualifiers: Diabetes mellitus longterm insulin use: unspecified local company intermodal truck driver insulin use status Qualified Code(s): E11.65 - Type 2 diabetes mellitus with hyperglycemia Plan: Decrease the amount of carbohydrate intake, pasta, bread, rice and potatoes are all sugar and that is aside from all the sweet stuff, remember that fruits are good but they are Sweet also. Hemoglobin A1c goal of less than 6.5. Patient is on Xigduo 11/999 once a day and tirzepatide 5 mg once a week (2) Hypertension: Code(s): I10 - Essential (primary) hypertension Category: Medical Qualifiers: Hypertension type: essential hypertension Qualified Code(s): I10 - Essential (primary) hypertension Plan: Continue with blood pressure medication. Decrease salt intake and exercise on lisinopril 30 mg once a day and amlodipine 2.5 mg once a day (3) Hypercholesterolemia: Code(s): E78.00 - Pure hypercholesterolemia, unspecified Category: Medical Plan: Avoid fried foods, chicken skin, eggs, butter margarine, pastries and meat. Be it pork or beef they have a lot of cholesterol on atorvastatin 20 mg once a day LDL goal of less than 100 and triglyceride of less than 150. March 2024 last blood work (4) Obesity: Code(s): E66.9 - Obesity, unspecified Category: Medical Qualifiers: Obesity type: due to excess calories Obesity classification: adult class 3 (BMI >= 40) Serious obesity comorbidity presence: with serious comorbidity Body mass index: BMI 40.0-44.9 Qualified Code(s): E66.01 - Morbid (severe) obesity due to excess calories; Z68.41 - Body mass index [BMI]40.0- 44.9, adult Plan: Continue with diet and exercise (5) Nephrolithiasis: Code(s): N20.0 - Calculus of kidney Category: Medical Plan: Keep well hydrated. (6) Plantar fasciitis of right foot: Code(s): M72.2 - Plantar fascial fibromatosis Category: Medical Plan: referral to podiatry. Plan History of Present Illness The patient is a 49-year-old female presenting for follow-up of multiple chronic conditions including nephrolithiasis and diabetes management. She has a history of obesity, hypertension, diabetes mellitus, hypercholesterolemia, and hepatic steatosis. The patient has been experiencing nephrolithiasis with multiple small nonobstructing stones noted on imaging, the largest being 7 mm on the left side. She was previously hospitalized for bilateral flank pain and fever, diagnosed with urinary tract infection, pyelonephritis, and nephrolithiasis, and was treated with Zosyn. A CT scan was advised, and she was seen by nephrology in June 2024 for medullary sponge kidney. Her diabetes is currently controlled with an A1c of 6.0, improved from 6.9 in May 2023. She is on Zigdul and tercepitide for diabetes management, but due to recurrent urinary tract infections, Zigdul was discontinued, and she will continue on metformin. The patient has been advised to maintain hydration to prevent stone formation and has undergone lithotripsy in 2023. She has been started on allopurinol and advised to check uric acid levels. Her blood pressure is managed with lisinopril and amlodipine, and her c holesterol is controlled with atorvastatin. The patient has also been experiencing plantar fasciitis, with recommendations for conservative management including gel insoles and exercises. Health Maintenance - Mammogram due - Cologuard test up to date - Advised to maintain hydration to prevent stone formation - Recommended exercises for plantar fasciitis Social History - Reports significant weight loss of 11 pounds over two months, possibly due to medication effects and reduced food intake. - Advised to maintain a balanced diet to prevent excessive weight loss and associated weakness. Review of Systems - Musculoskeletal: Reports pain in the plantar fascia region, diagnosed as plantar fasciitis. - Genitourinary: Reports bilateral flank pain radiating to the groin, associated with urinary tract infection and nephrolithiasis. - General: Reports significant weight loss and occasional weakness. Physical Exam - Musculoskeletal: Tenderness noted in the plantar fascia region, indicative of plantar fasciitis - Circulatory: Good circulation observed Results - Labs: Hemoglobin A1c of 6.0, LDL of 83, creatinine of 0.71 - Imaging: CT scan showing multiple small nonobstructing stones, largest 7 mm on the left side Plan The patient will continue with metformin for diabetes management, as Zigdul has been discontinued due to recurrent urinary tract infections. She is advised to maintain hydration to prevent further stone formation and will continue on allopurinol with regular uric acid level checks. For hypertension, she will remain on lisinopril and amlodipine, and atorvastatin will be continued for hypercholesterolemia. The patient is encouraged to follow conservative measures for plantar fasciitis, including the use of gel insoles and specific exercises. A referral to podiatry is considered if symptoms persist. Preventative care includes scheduling a mammogram and maintaining up-to-date screenings. Patient was informed and verbally consented to the use of an ambient scribe for clinic note documentation during this visit. Discussion Notes I discussed with the patient the management of her diabetes, emphasizing the importance of maintaining hydration to prevent stone formation and the need for regular uric acid checks while on allopurinol. We reviewed her medication regimen, including the discontinuation of Zigdul due to recurrent infections and continuation of metformin. I advised her on conservative measures for plantar fasciitis and the potential need for podiatry referral if symptoms persist. Preventative care measures, including scheduling a mammogram and maintaining up-to-date screenings, were also discussed. Patient Instructions - Continue taking metformin as prescribed. - Maintain hydration to prevent kidney stones. - Follow conservative measures for plantar fasciitis, including using gel insoles and performing recommended exercises. - Schedule a mammogram and ensure all screenings are up to date. Orders: Orders AMB Hemoglobin A1c Today Z13.9 - Encounter for screening, unspecified Referrals Podiatry Referral E11.65 - Type 2 diabetes mellitus with hyperglycemia Medications: New metformin ER (Glumetza) 1,000 mg PO DAILY 30 tabs 5RF E11.65 - Type 2 diabetes mellitus with hyperglycemia Refilled alcohol swabs 1 pad topical .QD 100 ea 3RF 90 days E11.65 - Type 2 diabetes mellitus with hyperglycemia
[2024-08-30 16:16] VITALS: BP 114/72; PULSE 88; TEMP 36.4; O2SAT 98; BMI 37.1
--- OUTSIDE RECORDS SUMMARY | 2024-08-30 16:25 | XMS_ITS | Encounter Summary ---
Author Organization [facility] Address [address] [place] [phone] Phone Care Team Providers Care Element Winding Machine Tender Name Role Phone Raj Rodas MD Primary Care Provider [phone] Encounter Details Date Type Department Care Team ([facility] Contact Info) Description 12/07/2023 Office Communication [facility] [address] [place] [phone] Gala Redman ARNP [address] [phone] Social History Tobacco Use Types [...] Upcoming Encounters Date Type Department Care Team ([facility] Contact Info) Description 06/26/2025 1:15 PM EDT Office Visit [facility] [address] [phone] Gala Redman ARNP [address] [phone] documented as of this encounter Visit Diagnoses Not on filedocumented in this encounter Care Teams Element Winding Machine Tender Relationship Specialty Start Date End Date Raj Rodas MD [address] [place] PCP - General 02/25/20 documented as of this encounter
--- OUTSIDE RECORDS SUMMARY | 2024-08-30 16:25 | XMS_ITS | Encounter Summary ---
Author Organization [facility] Address [address] [place] [address] Care Team Providers Care Office Machine Service Supervisor Name Role Phone Raj Rodas MD Primary Care Provider [phone] Encounter Details Date Type Department Care Team (Late st Contact Info) Description 03/29/2024 Lab Requisition [facility] Main Lab [address] [facility] [place] [phone] Keyon Garcia PA [address] [place] [phone] Benign essential microscopic hematuria Social History Tobacco [...] AM EST) Final Diagnosis A. Urine, Voided, ([id number]): Negative for high grade urothelial carcinoma. Acute inflammatory cells are present. Results of UroVysion fluorescence in situ hybridization (FISH) testing: CEP3: Normal CEP7: Normal CEP17: Normal LSI 9p21: Normal Interpretation: Normal profile Controls stained appropriately. Note: The results are intended as a screening device and should be interpreted in association with other clinical and pathological findings. 04/03/2024 2:05 PM [facility] Clinical Information Benign essential microscopic hematuria R31.1 Urine Cytology/FISH (now) 04/03/2024 2:05 PM [facility] Gross Description A. Urine, Voided, ([id number]): Received one ThinPrep slide for cytology and one ThinPrep slide for UroVysion FISH 04/03/2024 2:05 PM [facility] Disclaimer Unless otherwise specified, all tissue is 10% NB formalin fixed and paraffin embedded. Technical pathology services provided by [facility] at [address] [facility] [address], [place] [address] (CLIA #[id number]/Brandi Villafana MD, Senior Solutions Architect) 04/03/2024 2:05 PM [facility] Tissue Urine specimen from urethra / Unknown 03/22/2024 03/29/2024 2:18 PM EST us [facility] PATHOLOGY ORDERAB LES Final Result [facility] [address] [place] [address], documented in this encounter Visit Diagnoses Diagnosis Benign essential microscopic hematuria documented in this encounter Care Teams Office Machine Service Supervisor Relationship Specialty Start Date End Date Raj Rodas MD [address] [place] [address] [address] [facility] [place] [address] PCP - General Internal Medicine 04/23/21 documented as of this encounter
--- OUTSIDE RECORDS SUMMARY | 2024-08-30 16:25 | XMS_ITS | Data Portability ---
Author Organization [facility] Virtual Web [facility], [facility] Address [address] [place] [phone] Care Team Providers Care Behavioral Assistant Name Role Phone [facility] Referring Provider Assessment No assessment recorded. Plan of Treatment Reminders Order Date Submit Date Provider Last Modified By Organization Details Last Modified Time Details Appointments None recorded. Lab culture, urine 2022 023 [place] [facility] (Centralized Electronic Ordering - All Locations), Patient Can Go To The Location Of Their Choice, 23:41:55 urinalysis , dipstick 2022 023 [facility], [address] [place] [address], [phone] 19:33:43 Referral None recorded. Procedures None recorded. Surgeries None recorded. Imaging None recorded. Medication Orders Macrobid 100 mg capsule 2022 023 [id number], [address] [place], [place], [phone], 19:33:56 Patient TargetsNo targets recorded. Patient InstructionsNo [...] Go To The Location Of Their Choice, [id number] 01/04/2023 23:41:55 01/04/2001/04/2023 URINE CULTU RE report status FINAL 2022 Not Available [facility] (Centralized Electronic Ordering - All Locations) Patient Can Go To The Location Of Their Choice, [address] 01/04/2023 23:41:55 01/04/2001/03/2023 urina lysis , dipst ick Leukocytes trace Not Available Main - [facility] [address] [place] [address], [phone] 01/03/2023 19:32:55 01/04/2001/03/2023 urina lysis , dipst ick Nitrite negati ve Not Available Main - [facility] [address] [place] [address], [phone] 01/03/2023 19:32:55 01/04/2001/03/2023 urina lysis , dipst ick Blood negati ve Not Available Main - [facility] [address] [place] [address], [phone] 01/03/2023 19:32:55 Result Notes None recorded. Medical [...] in Arterial blood by Pulse oximetry Systolic And Diastolic Provider Name and Address Organization Details Last Updated DateTime 3 75 /min 97 [degF] 16 /min 100 % 100 % 164/87 mm[Hg] Not Available [facility] - production 3 [...] SNOMED-CT Code Diagnosis ICD10 Code Diagnosis Note [id number] Eulalio Ring MD Main - [facility] [address] [place] [phone] 01/03/2023 19:29:31 01/04/2023 10:48:19 Right flank pain [id number] R10.9 Patient reports one day of dysuria, [...] Recorded Advance Directives Directive None Recorded Payers Insurance Date Sequence Insurance Name Policy Number Policy White Covered Member ID White Member ID Guarantor Name 01/03/2023 1 [facility] DOS ON OR AFTER 2022 - DUAL ELIGIBLE - [facility] [employer] AND ONE [employer] (MEDICARE REPLACEMENT/ADV ANTAGE - HMO) Xiomy Henderson [id number] Xiomy Henderson Notes Date Note Type Note [...] ................. ................. ................. ................. ................. ................. ..... [employer] Note From Ricky Jensen: Pt reports dysuria, increased urinary frequency with decreased output and flank pain since yesterday. Pt denies CP, SOB, URBINA, f/n/v/d. Pt reports hx of UTI s and kidney stones. NKDA. Pt is alert, NAD. VSS. Afebrile. Neuro exam and gait normal. Lungs CTA. Benign ABD exam. Right side CVA tenderness. No GREGORIO. UA: trace KAREN, - NIT, - BLO. UC sent to [facility]. [facility] contacted and sent rx for macrobid. Pt instructed to stay well hydrated, f/u with urologist tomorrow morning and to seek emergent medical care for new or worsening sx, which are reviewed with her. [facility] Lab Orders: culture, urine: Performed urinalysis, dipstick: Performed ................. ................. ................. ................. ................. ................. ................. ................. ..... Disposition: Fulfilled Eulalio Ring MD [address] [facility],[address] [facility], [place], [phone], [email or web address] 01/03/2023 19:48:37 OBGyn Episode No OBEpisode recorded.
== END 2024-08-30 16:50 | disposition home or self-care (01) ==
LOC: HO.HMCH 16:13
PROVIDERS: PCP Internal Medicine; Visit Provider Internal Medicine
DX: E11.65 Type 2 diabetes mellitus with hyperglycemia (principal); I10 Essential (primary) hypertension; E78.00 Pure hypercholesterolemia, unspecified; E66.01 Morbid (severe) obesity due to excess calories; Z68.41 Body mass index [BMI] 40.0-44.9, adult; N20.0 Calculus of kidney; M72.2 Plantar fascial fibromatosis; Z13.9 Encounter for screening, unspecified

== ENCOUNTER → 2024-08-30 16:12 | Outpatient (BNVA) | payer OTHER, SELFPAY | PROVIDERS: PCP Internal Medicine; Visit Provider Internal Medicine | DX: E11.65 Type 2 diabetes mellitus with hyperglycemia (principal); I10 Essential (primary) hypertension; E78.00 Pure hypercholesterolemia, unspecified; E66.01 Morbid (severe) obesity due to excess calories; N20.0 Calculus of kidney; M72.2 Plantar fascial fibromatosis; Z68.41 Body mass index [BMI] 40.0-44.9, adult | CPT/HCPCS: 83036; 96127; 99212 ==

== ENCOUNTER 2024-11-05 12:49 | Outpatient (AMB) | payer OTHER, SELFPAY ==
[2024-11-05 13:01] VITALS: BMI 37.0
--- NOTE | 2024-11-05 13:01 | A.OFFVIS_ITS ---
Vital Signs 11/05/24 13:01 Height 5 ft 3 in Weight 209 lb BMI 37.0 Intake Visit Reasons: New Pt- Type 2 diabetes/plantar fasciitis Intake Note: Xiomy is a 49 year old female who presents today as a new patient for a Diabetic foot exam evaluation. She states she has not checked her sugar today. She mentions she is not experiencing any numbness or tingling in her feet at this time. Patient reports having pain in her right ankle for a few months. She has tried Tylenol for the pain and found little relief. Allergies No Known Allergies Allergy (Verified 08/30/24 16:20) Medication List - Last Reconciled 11/05/24 by Herman Atkinson DPM acetaminophen ER (Tylenol 8 Hour) 650 mg PO Q12H PRN albuterol sulfate 90 mcg/actuation 2 puffs inhalation Q6H PRN alcohol swabs 1 pad topical .QD 90 days amlodipine 2.5 mg PO DAILY aspirin 81 mg PO DAILY atorvastatin 20 mg PO DAILY [Bed Bar As directed] biotin 1 mg PO DAILY blood pressure monitor (Blood Pressure Kit) As directed blood sugar diagnostic As directed blood sugar diagnostic (FreeStyle Lite Strips) As directed check the BS QD blood-glucose meter (FreeStyle Lite Meter kit) As directed docusate sodium (Colace) 100 mg PO DAILY PRN 90 days fluticasone propionate 50 mcg/actuation (Flonase Allergy Relief) 2 sprays intranasal DAILY [Grab Bar By Toilet As directed] lancets As directed lancets (FreeStyle Lancets) As directed check BS QD lisinopril 30 mg PO DAILY meloxicam 7.5 mg PO DAILY metformin ER (Glumetza) 1,000 mg PO DAILY [Non Slip Rug As directed] [Non-Slip Mat ] potassium citrate ER 15 mEq PO TID 30 days [shower wand As directed] [Suction grab bars As directed] tirzepatide 5 mg (0.5 mL) subcut QWEEK 30 days [Weekly Medicaton Box As directed] HPI HPI New Pt- Type 2 diabetes/plantar fasciitis: Details: The patient is a 49-year-old female past medical history of diabetes mellitus type 2 and kidney stones with back pain presenting with history of right ankle pain and diabetes management. The ankle pain started months ago, with no specific injury identified, though a misstep is suspected. The pain is no longer present. She has been using Tylenol daily for her kidney stones/back pain for the past few months, she states she thinks that helped her ankle pain. The patient has a history of diabetes mellitus, managed with oral medication. She does not check her glucose levels at home however notes her A1c has been u nder 7%. The patient has a history of kidney stones, with her last specialist visit approximately five months ago. [facility] Medical History Colonoscopy refused Colon cancer screening Increased abdominal girth Dizziness Breast cancer screening by mammogram Anemia History of renal calculi Type 2 diabetes mellitus with hyperglycemia Hypercholesterolemia Obesity Medullary sponge kidney Hypertension Menorrhagia Vitamin D deficiency Surgical History History of section History of laparoscopic cholecystectomy Family History Father Pancreatic cancer Hypertension Diabetes Mother Breast cancer Hypertension Brother Hypertension Paternal Grandfather Myocardial infarction Social History Housing: House Alcohol intake: never Patient Tobacco Use Status: Never used Tobacco Tobacco use type: Cigarette e-Cigarette/Vaping Use: Never Used Second Hand Smoke Exposure: No service: No Current occupational status: unemployed Cognitive needs: No Hearing needs: No Vision needs: No Review of Systems Const All systems reviewed & are unremarkable except as noted in HPI and below Physical Exam Vital Signs: BMI result Body Mass Index 37.0 Extrem Other: *Bilateral Lower Extremity Focused Diabetic Foot Exam Vascular: DP/PT 2/4, CFT<3s to digits, TG warm to cool, no pedal edema, pedal hair present Derm: Skin: No open lesions, ulcerations, or calluses. Interdigital spaces: Clear, no maceration or fungal infection. Nails: Thickened elongated toenails x10. Bilateral hallux nail incurvated, right medial/lateral border ingrown at distal tip of the nail. Neuro: [place]-rosc[place] monofilament (10g) test 10/10 intact to right foot, 10/10 intact to left foot. Msk: No pain on palpation or range of motion of the right ankle. Deformities: No evidence of hammertoes, bunions, Charcot changes, or other structural abnormalities. Muscle strength: 5/5 in all muscle groups. Gait: Normal, no antalgic or steppage gait observed. Footwear Assessment: Shoes inspected; appropriate fit, no excessive wear, or foreign objects noted. Office Procedures AMB Debridement/Avulsion Podia Details: All elongated, thickened, discolored toenails x 10 using a sterile nail nipper. The patient tolerated the procedure well with no complications. Class B findings as per physical exam findings above. The patient has a diagnosis of diabetes mellitus and presents with elongated, thickened toenails. Due to underlying diabetic neuropathy and mild vascular disease findings, the patient is at increased risk for complications such as ulceration, infection, and difficulty with self-care. Debridement of elongated toenails is medically necessary to prevent development of pressure-related lesions, reduce risk of secondary infection, and maintain foot health in her high-risk comorbidities. Follow up in 9 weeks. [id number]-Sinqmiddefb of Nail 6+ Procedure code (CPT) selection complete Results Reviewed Results Reviewed: Laboratory Tests 03/14/24 06/06/24 08/30/24 11:30 08:45 16:21 Hgb A1c (Clinic) 6.4 H 6.9 H 6.0 Assessment & Plan Assessment & Plan (1) Type 2 diabetes mellitus with hyperglycemia: Comment: Abril 06/2023 [facility]. [id number], 12/04/2023 Code(s): E11.65 - Type 2 diabetes mellitus with hyperglycemia Category: Medical Qualifiers: Diabetes mellitus long distance operator insulin use: unspecified care home insulin use status Qualified Code(s): E11.65 - Type 2 diabetes mellitus with hyperglycemia Plan: Risk Stratification: No current ulceration, infection, or pre-ulcerative lesion. No loss of protective sensation or peripheral arterial disease. No plans for further testing/referrals for non-invasive vascular studies. Patient is at low risk for diabetic foot complications at this time. Recommendations: Continue routine foot care and daily self-inspection. Recommend moisturizing daily. Recommend supportive proper fitting shoe-wear. The patient may require diabetic shoes in the future. Reinforced diabetic foot education and risks from peripheral neuropathy. Follow up in 1 year for annual diabetic evaluation. (2) Right ankle pain: Code(s): M25.571 - Pain in right ankle and joints of right foot Category: Medical Qualifiers: Chronicity: chronic Qualified Code(s): M25.571 - Pain in right ankle and joints of right foot; G89.29 - Other chronic pain Plan: * No ankle pain present currently. (3) Tinea unguium: Code(s): B35.1 - Tinea unguium Category: Medical Plan: * Debrided elongated thickened toenails times 10. * Follow up in 9 weeks. Orders: Orders AMB Debridement/Avulsion Podiatry Today B35.1 - Tinea unguium Coding Level of Care Code New Pt Level 4 (35844) Diagnoses Type 2 diabetes mellitus with hyperglycemia, unspecified whether long distance operator insulin use E11.65 Diabetes mellitus long distance operator insulin use: unspecified long distance operator insulin use status Chronic pain of right ankle M25.571; G89.29 Chronicity: chronic Tinea unguium B35.1 CPT Codes Skin Debridement - CPT: 70961-Pfpxmpmrnqe of Nail 6+ ([id number]) Time Spent (min) 35
== END 2024-11-05 13:28 | disposition home or self-care (01) ==
LOC: HO.HPODS 12:50
PROVIDERS: PCP Internal Medicine; Visit Provider Student in an Organized Health Care Education/Training Program
DX: E11.65 Type 2 diabetes mellitus with hyperglycemia (principal); M25.571 Pain in right ankle and joints of right foot; G89.29 Other chronic pain; B35.1 Tinea unguium
CPT/HCPCS: 11721; 99203

== ENCOUNTER → 2024-11-05 12:49 | Outpatient (BNVA) | payer OTHER, SELFPAY | PROVIDERS: PCP Internal Medicine; Visit Provider Student in an Organized Health Care Education/Training Program | DX: E11.65 Type 2 diabetes mellitus with hyperglycemia (principal); L60.2 Onychogryphosis; M25.571 Pain in right ankle and joints of right foot; B35.1 Tinea unguium; G89.29 Other chronic pain | CPT/HCPCS: 11721; 99202 ==

== ENCOUNTER 2024-12-24 12:44 | Outpatient (AMB) | payer OTHER, SELFPAY ==
[2024-12-24 12:46] VITALS: BP 108/74; PULSE 79; TEMP 36.3; O2SAT 97; BMI 35.8
--- NOTE | 2024-12-24 12:46 | A.OFFPC_ITS ---
Vital Signs 12/24/24 12:46 Height 5 ft 3 in Weight 202 lb BMI 35.8 BP 108/74 Blood Pressure Location Lt brachial Position Sitting Pulse 79 Pulse Source Pulse Oximeter Temp 97.3 F Temp Source Temporal Artery Scan Pulse Oximetry (%) 97 Oxygen Delivery Method Room Air Intake Visit Reasons: 3 mnth f/u Accompanied by: Friend Allergies No Known Allergies Allergy (Verified 12/24/24 12:52) Medication List - Last Reconciled 12/24/24 by Raj Rodas MD acetaminophen ER (Tylenol 8 Hour) 650 mg PO Q12H PRN albuterol sulfate 90 mcg/actuation 2 puffs inhalation Q6H PRN alcohol swabs 1 pad topical .QD 90 days amlodipine 2.5 mg PO DAILY aspirin 81 mg PO DAILY atorvastatin 20 mg PO DAILY [Bed Bar As directed] biotin 1 mg PO DAILY blood pressure monitor (Blood Pressure Kit) As directed blood sugar diagnostic As directed blood sugar diagnostic (FreeStyle Lite Strips) As directed check the BS QD blood-glucose meter (FreeStyle Lite Meter kit) As directed dapaglifloz propaned-metformin 10-1,000 mg ER (Xigduo XR) 1 tab PO DAILY docusate sodium (Colace) 100 mg PO DAILY PRN 90 days fluticasone propionate 50 mcg/actuation (Flonase Allergy Relief) 2 sprays intranasal DAILY [Grab Bar By Toilet As directed] lancets As directed lancets (FreeStyle Lancets) As directed check BS QD lisinopril 30 mg PO DAILY meloxicam 7.5 mg PO DAILY metformin ER (Glumetza) 1,000 mg PO DAILY [Non Slip Rug As directed] [Non-Slip Mat ] potassium citrate ER 15 mEq PO TID 30 days [shower wand As directed] [Suction grab bars As directed] tirzepatide 5 mg (0.5 mL) subcut QWEEK 30 days [Weekly Medicaton Box As directed] Tobacco use date assessed: 12/24/24 Dental Screening Dental Screen Date: 12/24/24 Did you have a dental visit in the last 12 months?: Yes Did you have a dental problem in the last 6 months where you did not have access to dental care?: No Was dental information given to patient?: Patient has dentist HPI 3 mnth f/u HPI Details recently seen urology for hematuria PFSH Medical History Colonoscopy refused Colon cancer screening Increased abdominal girth Dizziness Breast cancer screening by mammogram Anemia History of renal calculi Type 2 diabetes mellitus with hyperglycemia Hypercholesterolemia Obesity Medullary sponge kidney Hypertension Menorrhagia Vitamin D deficiency Surgical History History of section History of laparoscopic cholecystectomy Family History Father Pancreatic cancer Hypertension Diabetes Mother Breast cancer Hypertension Brother Hypertension Paternal Grandfather Myocardial infarction Social History Housing: House Alcohol intake: never Patient Tobacco Use Status: Never used Tobacco Tobacco use type: Cigarette e-Cigarette/Vaping Use: Never Used Second Hand Smoke Exposure: No service: No Current occupational status: unemployed Cognitive needs: No Hearing needs: No Vision needs: No Questionnaire PHQ-9 Over the last 2 weeks, how often have you been bothered by any of the following problems? 1. Little interest or pleasure in doing things: not at all 2. Feeling down, depressed, or hopeless: not at all 3. Trouble falling or staying asleep, or sleeping too much: not at all 4. Feeling tired or having little energy: not at all 5. Poor appetite or overeating: nearly every day 6. Feeling bad about yourself - or that you are a failure or have let yourself or your family down: not at all 7. Trouble concentrating on things, such as reading the newspaper or watching television: not at all 8. Moving or speaking so slowly that other people could have noticed. Or the opposite - being so fidgety or restless that you have been moving around a lot more than usual: not at all 9. Thoughts that you would be better off or of hurting yourself in some way: not at all Total score: 3 Source: Developed by Drs. Ender Rosario, Gale Navarro, Alejandor Cabrera and colleagues, with an educational bing from [employer]. Thrive Questionnaire Date Thrive assessed: 08/30/24 I am a: Patient What is your living situation today?: I have a steady place to live Within the past 12 months, did the food you bought not last and you didn't have the money to get more?: Never true Within the past 12 months, did you worry whether your food would run out before you got money to buy more?: Never true Do you have trouble paying for medicines?: No Do you have trouble getting transportation to medical appointments?: No Do you have trouble paying your heating and electricity bill?: No Do you have trouble taking care of your child, family member or friend?: No Do you have trouble with day-to-day activities such as bathing, preparing meals, shopping, managing finances, etc.?: No Are you currently unemployed and looking for a job?: No Are you interested in more education?: No Please select the resources that you would like help with: None Currently or been in a relationship where the following occur: I choose not to answer THRIVE Score: 0 AUDIT C Alcohol Use Questionnaire (AUDIT-C) 1. How often do you have a drink containing alcohol?: Never 3. How often do you have six or more drinks on one occasion?: Never Total Score: 0 ANGELA-7 AMB Questionnaire ANGELA-7 Date ANGELA - 7 assessed: 03/14/24 Feeling nervous, anxious, or on edge: 0 = Not at all Not being able to stop or control worryin = Not at all Worrying too much about different things: 0 = Not at all Trouble relaxin = Not at all Being so restless that it is hard to sit still: 0 = Not at all Becoming easily annoyed or irritable: 0 = Not at all Feeling afraid as if something awful might happen: 0 = Not at all Total ANGELA-7 score (0-4 normal; 5-9 mild; 10-14 moderate; 15-21 severe): 0 Source: Developed by Drs. Ender Rosario, Gale Navarro, Alejandro Cabrera and colleagues, with an educational bing from [employer]. Physical exam (Primary Care) Vital Signs: Last Vital Signs Temp 97.3 F 12/24/24 12:46 Pulse 79 12/24/24 12:46 BP 108/74 12/24/24 12:46 Pulse Ox 97 12/24/24 12:46 Oxygen Delivery Method Room Air 12/24/24 12:46 BMI result Body Mass Index 35.8 Tobacco/Smoking Status: Tobacco use Status Tobacco use date assessed 12/24/24 12/24/24 12:54 Patient Tobacco Use Status Never used Tobacco 12/24/24 12:54 Tobacco use type Cigarette 12/24/24 12:54 e-Cigarette/Vaping Use Never Used 12/24/24 12:54 PHQ-9: PHQ-9 Score PHQ-9: Total score 3 12/24/24 12:54 Thrive Assessment: Date of Thrive Assessment Date Thrive assessed 08/30/24 12/24/24 12:54 Currently or been in a relationship where the following occur: I choose not to answer Const General: alert; No acute distress Eyes Conjunctivae: conjunctivae normal Resp Auscultation: clear to auscultation bilaterally Cardio Rate: regular rate Rhythm: regular rhythm GI Inspection: Yes normal to inspection Extrem General: Yes normal to inspection and No edema Results AMB Hemoglobin A1c AMB Hemoglobin A1c 5.9 % Last Edit by Lakeisha Perez CMA on 12/24/24 12:56 Coding Level of Care Code Est Pt Level 4 (88430) Complex EM visit Add On G2211 Diagnoses Type 2 diabetes mellitus with hyperglycemia, unspecified whether exterminator helper insulin use E11.65 Diabetes mellitus fpc insulin use: unspecified fpc insulin use status Essential hypertension I10 Hypertension type: essential hypertension Hypercholesterolemia E78.00 Class 3 severe obesity due to excess calories with serious comorbidity and body mass index (BMI) of 40.0 to 44.9 in adult E66.01; Z68.41 Obesity type: due to excess calories Obesity classification: adult class 3 (BMI >= 40) Serious obesity comorbidity presence: with serious comorbidity Body mass index: BMI 40.0-44.9 Fatty liver K76.0 Nephrolithiasis N20.0 Low back pain M54.50 Breast cancer screening by mammogram Z12.31 Assessment & Plan Assessment & Plan (1) Type 2 diabetes mellitus with hyperglycemia: Comment: Abril 06/2023 [facility] [address] [id number], 12/04/2023 Code(s): E11.65 - Type 2 diabetes mellitus with hyperglycemia Category: Medical Qualifiers: Diabetes mellitus exterminator helper insulin use: unspecified exterminator helper insulin use status Qualified Code(s): E11.65 - Type 2 diabetes mellitus with hyperglycemia Plan: Decrease the amount of carbohydrate intake, pasta, bread, rice and potatoes are all sugar and that is aside from all the sweet stuff, remember that fruits are good but they are Sweet also. Hemoglobin A1c goal of less than 6.5. Patient is on metformin a 1000 mg once a day placed on tirzepatide 5 mg once a week and Xigduo 11/999 mg once a day (2) Hypertension: Code(s): I10 - Essential (primary) hypertension Category: Medical Qualifiers: Hypertension type: essential hypertension Qualified Code(s): I10 - Essential (primary) hypertension Plan: Continue with blood pressure medication. Decrease salt intake and exercise on lisinopril 30 mg once a day amlodipine 2.5 mg once a day. Blood pressure taken is 110/60 and with the complaints of dizziness will discontinue amlodipine. Advised to get blood work done (3) Hypercholesterolemia: Code(s): E78.00 - Pure hypercholesterolemia, unspecified Category: Medical Plan: Avoid fried foods, chicken skin, eggs, butter margarine, pastries and meat. Be it pork or beef they have a lot of cholesterol LDL goal of less than 100 and triglyceride of less than 150 on atorvastatin 20 mg once a (4) Obesity: Code(s): E66.9 - Obesity, unspecified Category: Medical Qualifiers: Obesity type: due to excess calories Obesity classification: adult class 3 (BMI >= 40) Serious obesity comorbidity presence: with serious comorbidity Body mass index: BMI 40.0-44.9 Qualified Code(s): E66.01 - Morbid (severe) obesity due to excess calories; Z68.41 - Body mass index [BMI]40.0- 44.9, adult Plan: Diet and exercise (5) Fatty liver: Code(s): K76.0 - Fatty (change of) liver, not elsewhere classified Category: Medical Plan: Low-fat diet and exercise (6) Nephrolithiasis: Code(s): N20.0 - Calculus of kidney Category: Medical Plan: Keep well hydrated patient follows up with urology on potassium citrate (7) Low back pain: Code(s): M54.50 - Low back pain, unspecified Category: Medical Plan: X-ray requested (8) Breast cancer screening by mammogram: Code(s): Z12.31 - Encounter for screening mammogram for malignant neoplasm of breast Category: Medical Plan History of Present Illness The patient is a 49-year-old obese female presenting for a follow-up visit, last seen in August. Her medical history includes diabetes mellitus, hypercholesterolemia, hypertension, medullary sponge kidney, and nephrolithiasis. The patient complains of dizziness that has been ongoing for months. She also reports right lower back pain which radiates around and sometimes to both legs. Additionally, she has concerns about significant hair loss and leg swelling. Recent medical history includes an ER visit in November for knee pain, where an X-ray revealed mild degenerative changes. She was seen by urology on December 18 for nephrolithiasis and was prescribed potassium citrate. Her urologist did not believe the back pain was related to her kidneys. The patient has also followed up with podiatry. Laboratory work from March showed a normal blood count and an LDL level of 83 mg/dL. A colonoscopy performed in March 2022 was negative. Health Maintenance The patient is due for her annual mammogram, and a referral will be placed. She has agreed to receive the flu vaccine during this visit. A follow-up visit is scheduled in three months. Social History - Diet: Appetite is decreased, but she is not skipping meals. - Hydration: Reports drinking water. - Weight Management: Has lost approximately 7 pounds since the last visit. Review of Systems - Constitutional: Denies fever. - Neurological: Reports dizziness for several months. - HEENT/Integumentary: Reports significant hair loss. - Respiratory: Denies cough and shortness of breath. - Gastrointestinal: Reports decreased appetite. Denies nausea or vomiting. - Genitourinary: Reports a history of hematuria. - Musculoskeletal: Reports right lower back pain with radiation to the legs. Reports swollen legs and muscle problems. Physical Exam Vitals: Blood pressure is 110/60 mmHg. Results - Labs (March): Blood count was normal. LDL was 83 mg/dL. - Imaging (November): X-ray of the knee showed mild degenerative changes. - Procedures (March 2022): Colonoscopy was negative. - Urinalysis (at Urology): No infection reported. Plan Patient was informed and verbally consented to the use of an ambient scribe for clinic note documentation during this visit. 1. Hypertension And Dizziness The patient's blood pressure is 110/60 mmHg while on lisinopril 30 mg and amlodipine 2.5 mg. Given her complaint of chronic dizziness and a blood pressure on the lower side, the contribution of her antihypertensive regimen is considered. The plan is to discontinue amlodipine and continue lisinopril to assess for improvement in her dizziness. 2. Type 2 Diabetes Mellitus And Obesity The patient's blood glucose is well-controlled with a target A1c of less than 6.5. She is currently taking metformin 1000 mg, Xigduo 11/999 mg, and tirzepatide 5 mg weekly. She has achieved a 7-pound weight loss, which is attributed to the appetite-suppressing effects of her medication. The plan is to continue the current dose of tirzepatide as long as weight loss continues; the dose can be increased if her weight loss plateaus. She was counseled on diet and exercise. 3. Low Back Pain The patient reports right lower back pain with radiation, which her urologist believes is not of renal origin. To further evaluate, an X-ray of the lumbar spine will be ordered. For pain management, Tylenol up to 1000 mg three times daily is recommended as a safer alternative to NSAIDs like naproxen. 4. Nephrolithiasis And Medullary Sponge Kidney The patient has a history of medullary sponge kidney and kidney stones, for [facility] she follows with urology. She is on potassium citrate and is advised to maintain good hydration. She will continue to monitor with her urology provider. 5. Hypercholesterolemia Her LDL goal is less than 100 mg/dL, and she is currently on atorvastatin 20 mg daily. The plan is to continue current medication and encourage a low-fat diet and exercise. 6. Hair Loss The patient reports significant hair loss. To investigate potential causes, fasting blood work, including a thyroid panel, will be ordered. Discussion Notes I discussed with the patient that her dizziness has many potential causes, including her diabetes, blood pressure, and hydration status. Given her current blood pressure of 110/60 mmHg, I recommended we stop her amlodipine to see if this alleviates her symptoms. I explained that her diabetes medications are working effectively, contributing to good glucose control and weight loss, and we will continue the current regimen. Regarding her back pain, I informed her that since her urologist did not think it was related to her kidneys, I will order an X-ray of her spine to investigate further. For pain control, I advised that Tylenol is a safer option than naproxen for her. We will also order fasting blood work to check her thyroid function and other parameters in light of her hair loss. I placed an order for her annual mammogram. We will follow up in three months to review the results and her progress, but she should contact me sooner if any issues arise. Patient Instructions - Stop taking your Amlodipine medication. - Continue taking your Lisinopril and all other current medications as prescribed. - Go for fasting blood work as ordered. - Get an X-ray of your lower back. - We have placed an order for you to get your annual mammogram. - For pain, it is safer for you to take Tylenol (up to 1000 mg, 3 times a day) instead of Naproxen. - Make sure to drink plenty of water. - Schedule a follow-up appointment in 3 months. - Contact the office if your symptoms worsen or if you have any other concerns before your next appointment. Orders: Orders Lipid Panel Today E11.65 - Type 2 diabetes mellitus with hyperglycemia, E78.00 - Pure hypercholesterolemia, unspecified Microalbumin, Random (w Creat) Today E11.65 - Type 2 diabetes mellitus with hyperglycemia Thyroid Stimulating Hormone Today E11.65 - Type 2 diabetes mellitus with hyperglycemia Vitamin B12 and Folate Today E11.65 - Type 2 diabetes mellitus with hyperglycemia Vitamin D 25-OH Total Today E11.65 - Type 2 diabetes mellitus with hyperglycemia MM tomosynthesis screening BI Today Z12.31 - Encounter for screening mammogram for malignant neoplasm of breast AMB Hemoglobin A1c Today Z13.9 - Encounter for screening, unspecified Comprehensive Met. Panel Today E11.65 - Type 2 diabetes mellitus with hyperglycemia Complete Blood Count Auto Diff Today E11.65 - Type 2 diabetes mellitus with hyperglycemia Creatinine Urine Today E11.65 - Type 2 diabetes mellitus with hyperglycemia Free T4 (Free Thyroxine) Today E11.65 - Type 2 diabetes mellitus with hyperglycemia Hemoglobin A1c Today E11.65 - Type 2 diabetes mellitus with hyperglycemia UA CC w/rflx Micro + Cult Today E11.65 - Type 2 diabetes mellitus with hyperglycemia, R30.0 - Dysuria XR lumbar spine 2-3V Today M54.50 - Low back pain, unspecified Medications: Discontinued amlodipine Discontinued Reason: Doctor's Order 2.5 mg PO DAILY 90 tabs 2RF
--- OUTSIDE RECORDS SUMMARY | 2024-12-24 14:51 | XMS_ITS | Encounter Summary ---
Author Organization [facility] Address [address] [place] [address] Care Team Providers Care Saw Tailer Name Role Phone Raj Rodas MD Primary Care Provider [phone] Encounter Details Date Type Department Care Team (Late st Contact Info) Description 03/29/[address] [facility] - Main Lab [address] [facility] [place] [phone] Keyon Garcia PA [address] [facility] [address] [place] [phone] Benign essential microscopic hematuria Social History Tobacco [...] AM EST) Final Diagnosis A. Urine, Voided, ([id number]): Negative for high grade urothelial carcinoma. Acute [...] HOSPITAL LAB Gross Description A. Urine, Voided, ([id number]): Received one ThinPrep slide for cytology and one ThinPrep slide for UroVysion FISH 04/03/2024 2:05 PM [facility] Disclaimer Unless otherwise specified, all tissue is 10% NB formalin fixed and paraffin embedded. Technical pathology services provided by [facility] at [address], [place] [address] (CLIA #[id number]/Brandi Villafana MD, C Programmer) 04/03/2024 2:05 PM [facility] Tissue Urine specimen from urethra / Unknown 03/22/2024 03/29/2024 2:18 PM EST us [facility] PATHOLOGY ORDERAB LES Final Result [facility] [address] [place] [address], documented in this encounter Visit Diagnoses Diagnosis Benign essential microscopic hematuria documented in this encounter Care Teams Saw Tailer Relationship Specialty Start Date End Date Raj Rodas MD [address] [facility] [address] [facility] [place] [address] PCP - General Internal Medicine 04/23/21 documented as of this encounter
--- OUTSIDE RECORDS SUMMARY | 2024-12-24 14:51 | XMS_ITS | Data Portability ---
Author Organization [facility], [facility] Medical [facility] Address [address] [place] [phone] Care Team Providers Care Security System Installer Name Role Phone [facility] Referring Provider Assessment No assessment recorded. Plan of Treatment Reminders Order Date Submit Date Provider Last Modified By Organization Details Last Modified Time Details Appointments None recorded. Lab culture, urine 2022 023 [facility] (Centralized Electronic Ordering - All Locations), Patient Can Go To The Location Of Their Choice, 23:41:55 urinalysis , dipstick 2022 023 [facility], [address] [place] [address], [phone] 19:33:43 Referral None recorded. Procedures None recorded. Surgeries None recorded. Imaging None recorded. Medication Orders Macrobid 100 mg capsule 2022 023 [id number], [address], [place], [id number], 19:33:56 Patient TargetsNo targets recorded. Patient InstructionsNo [...] Go To The Location Of Their Choice, [id number] 01/04/2023 23:41:55 01/04/2001/04/2023 URINE CULTU RE report status FINAL 2022 Not Available [facility] (Centralized Electronic Ordering - All Locations) Patient Can Go To The Location Of Their Choice, [id number] 01/04/2023 23:41:55 01/04/2001/03/2023 urina lysis , dipst ick Leukocytes trace Not Available Main - [facility] [address] [place] [address], [phone] 01/03/2023 19:32:55 01/04/2001/03/2023 urina lysis , dipst ick Nitrite negati ve Not Available Main - Inst ed [address] [place] [address], [phone] 01/03/2023 19:32:55 01/04/2001/03/2023 urina lysis , dipst ick Blood negati ve Not Available Main - Inst ed [address] [place] [address], [phone] 01/03/2023 19:32:55 Result Notes None recorded. Medical [...] Diagnosis SNOMED-CT Code Diagnosis ICD10 Code Diagnosis IMO Codes Diagnosis Note [id number] Eulalio Ring MD Main - [facility] [address] [place] [phone] 01/03/2023 19:29:31 01/04/2023 10:48:19 Right flank pain [id number] R10.9 Patient reports one day of dysuria, [...] White Member ID Guarantor Name 01/03/2023 1 [facility] - DOS ON OR AFTER 2022 - DUAL ELIGIBLE - RESIDENTIAL OPTIONS AND ONE CARE (MEDICARE REPLACEMENT/ADV ANTAGE - HMO) Xiomy Henderson [id number] Xiomy Henderson Notes Date Note Type Note [...] ................. ................. ................. ................. ................. ................. ..... Manual Tester Note From Ricky Jensen: Pt reports dysuria, [...] - NIT, - BLO. UC sent to [facility]. [facility] contacted and sent rx for macrobid. Pt instructed to stay well hydrated, f/u with urologist tomorrow morning and to seek emergent medical care for new or worsening sx, which are reviewed with her. [facility] Lab Orders: culture, urine: Performed urinalysis, dipstick: Performed ................. ................. ................. ................. ................. ................. ................. ................. ..... Disposition: Fulfilled Eulalio Ring MD [address] [facility],[address] [facility], [place], [phone], [employer] - Frequent Browser 01/03/2023 19:48:37 OBGyn Episode No OBEpisode recorded.
--- OUTSIDE RECORDS SUMMARY | 2024-12-24 14:51 | XMS_ITS | Clinical Summary ---
Author Organization [facility] Address [address] [place] [address] Care Team Providers Care Steel Inspector Name Role Phone Raj Rodas MD Primary Care Provider [phone] Allergies No known active allergies Medications diclofenac (VOLTAREN) 1 % topical gel Apply 4 g topically 4 (four) times a day for 7 days. 100 g 5 12/12/19 25 Encounters Date Type Department Care Team Description 12/04/2024 8:17 PM EDT - 12/04/2024 11:04 PM EDT Emergency [facility] Emergency [address] [place] [address] Acute pain of right knee (Primary Dx) Discharge Disposition: Home or Self Care from Last 3 Months Surgical History Surgery Date Site/Laterality Comments OTHER SURGICAL HISTORY N/A PROCEDURE: OK TOT ABD HYST W/PARAORTIC & PELVIC LYMPH NODE FERN CHOLECYSTECTOMY N/A PROCEDURE: OK LAPAROSCOPY SURG CHOLECYSTECTOMY Medical History Medical History [...] Sexual Orientation Not on file Obstetrics History Last Filed Vital Signs Vital Sign Reading Time Taken Comments Blood Pressure 144/90 12/04/2024 6:34 PM EDT Pulse 98 12/04/2024 6:34 PM EDT Temperature 36.8 C (98.2 F) 12/04/2024 6:34 PM EDT Respiratory Rate 16 12/04/2024 6:34 PM EDT Oxygen Saturation 100% 12/04/2024 6:34 PM EDT Inhaled Oxygen Concentration - - Weight - - Height 165.1 cm (5' 5 ) 12/04/2024 6:34 PM EDT Body Mass Index - - Plan of Treatment Health Maintenance Due Date Last Done Comments Colorectal Cancer Screening: Colonoscopy 1977 Diabetes: Annual GFR (Glomerular Filtration Rate) 1977 Diabetes: Annual Foot Exam 1987 Diabetes: Annual Retina Eye Exam 1987 Hepatitis B Vaccines (1 of 3 - 19+ 3-dose series) 01/09/1996 Cervical Cancer Screening: P ap Smear 1998 Breast Cancer Screening 01/31/2020 01/30/2018 Cholesterol Screening (Lipid Panel) 01/17/2022 HIV Screening 01/17/2022 Hepatitis C Screening 01/17/2022 Social Influencers of Health Screening 01/17/2022 Diabetes: Annual Urine Albumin-Creatinine Ratio (uACR) 01/29/2022 Hypertension/CHF/CAD Annual BMP Blood Test 01/29/2022 DTaP,Tdap,and Td Vaccines (2 - Td or Tdap) 06/30/2022 06/30/2012 Depression Screening 02/15/2024 COVID-19 Vaccine (3 - 2024-2 6 season) 2024 01/05/2022, 08/28/2020 Influenza Vaccine (#1) 2024 01/14/2006 Diabetes: Blood Sugar Contro l Test (HGBA1C) 12/30/2024 06/29/2024, 06/29/2024, 05/05/2022 RSV Immunization Adult Patients (1 - 1-dose 75+ series) 01/09/2052 Pneumococcal Vaccine: Pediatrics (0 to 5 Years) and At-Risk Patients (6 to 49 Years) Aged Out 10/19/2018, 11/30/2013 No longer eligible based on patient's age to complete this topic HIB Vaccines Aged Out No longer eligi [...] to complete this topic RSV Immunization Patients Under 20 months Aged Out No longer eligible b ased on patient's age to complete this topic Varicella Vaccines Aged Out No longer eligible based on patient's age to complete this topic Procedures Procedure Name Priority Date/Time Associated Diagnosis Comments CT LOWER EXTREMITY WO CONTRAST RIGHT STAT 12/04/2024 9:59 PM EDT POC , URINE DIAGNOSTIC STAT 12/04/2024 9:51 PM EDT XR KNEE 4+ VIEWS RIGHT STAT 12/04/2024 8:47 PM EDT NANDA SCREENING DIGITAL Routine 01/30/2018 6:02 PM EST Encounter for screening mammogram for malignant neoplasm of breast from Last 3 Months or Most Recently Relevant to Health Maintenance Results * CT Lower Extremity wo Contrast Right (12/04/2024 9:59 PM EDT) Anatomical Region Laterality Modality Lower Extremities Right Computed Tomog nila 12/04/2024 10:5 1 PM EDT Impressions 12/04/2024 10:51 PM EDT 1. Mild degenerative changes. 2. No acute fracture or subluxation. 3. No joint effusion or soft tissue abnormality seen. This document has been electronically signed by: Silver Khan MD on 12/04/2024 22:51:24 Narrative 12/04/2024 10:51 PM EDT INDICATION: Knee pain, xray joint disease (CPPD, inflam, DJD) CT right knee without contrast Comparison: None provided Findings: osseous structures are grossly unremarkable. There is no acute fracture or subluxation. Mild degenerative changes. No acute fracture or subluxation. No joint effusion or soft tissue abnormality seen. Procedure Note Silver Khan MD - 12/04/2024 INDICATION: Knee pain, xray joint disease (CPPD, inflam, DJD) CT right knee without contrast Comparison: None provided Findings: osseous structures are grossly unremarkable. There is no acute fracture or subluxation. Mild degenerative changes. No acute fracture or subluxation. No joint effusion or soft tissue abnormality seen. IMPRESSION: 1. Mild degenerative changes. 2. No acute fracture or subluxation. 3. No joint effusion or soft tissue abnormality seen. This document has been electronically signed by: Sivler Khan MD on 12/04/2024 22:51:[address] IMG CT PROCEDURES Final Result * POC , urine manually resulted (12/04/2024 9:51 PM EDT) HCG, Ur POC Negative Negative POC hCG Int QC Pass? Yes Yes Urine Urine specimen obtained by clean catch procedure / Unknown 12/04/2024 9:51 PM EDT us Leeanna SAMUEL POINT OF CARE TEST ENTER /EDIT ORDERABLES Final Result * XR Knee 4+ Views Right (12/04/2024 8:47 PM EDT) Anatomical Region Laterality Modality Lower Extremities, Knee Right Radiogra phic Imaging 12/05/2024 9:59 AM EDT Impressions 12/05/2024 10:00 AM EDT Normal examination. Code 60775 -------- FINAL REPORT -------- Dictated By: Ji Kendall Dictated Date: 12/05/2024 09:59 ET Assigned Physician: Ji Kendall Reviewed and Electronically Signed By: Ji Kendall Signed Date: 12/05/2024 10:00 ET Workstation ID: [id number] Transcribed By: Self Edit Transcribed Date: 12/05/2024 09:59 ET Narrative 12/05/2024 10:00 AM EDT HISTORY: The patient is a 49-year-old female with right knee pain. No history of trauma is provided. FINDINGS: AP, lateral, internal rotation, and external rotation views of the right knee are obtained. The study demonstrates no fracture, dislocation, arthritic change, or other bony abnormality. No joint effusion or other soft tissue abnormality is seen. Procedure Note Ji Kendall MD - 12/05/2024 HISTORY: The patient is a 49-year-old female with right knee pain. Nohistory of trauma is provided. FINDINGS: AP, lateral, internal rotation, and external rotation views ofthe right knee are obtained. The study demonstrates no fracture,dislocation, arthritic change, or other bony abnormality. No jointeffusion or other soft tissue abnormality is seen. IMPRESSION: Normal examination. Code 57337 -------- FINAL REPORT -------- Dictated By: Ji Kendall Dictated Date: 12/05/2024 09:59 ET Assigned Physician: Ji Kendall Reviewed and Electronically Signed By: Ji Kendall Signed Date: 12/05/2024 10:00 ET Workstation ID: [id number] Transcribed By: Self Edit Transcribed Date: 12/05/2024 09:59 ET Leeanna SAMUEL IMG XR PROCEDURES Final Result * NANDA SCREENING DIGITAL (01/30/2018 6:02 PM EST) Anatomical Region Laterality Modality Mammography 01/30/2018 2:27 PM EST Narrative 01/30/2018 6:02 PM EST [facility] Diagnostic Imaging Department [address] [place] [address] Patient: MANUEL AMEZCUA /Age/Sex: 1975 - 43 - F Unit#: [id number] Location/Status: SPDIMAM/REG CLI Mnemonic/Ordering Site: [facility] Ordering Physician: RUCHI MITCHELL MD Nanda Screening Digital - 01/30/18 - 150 INDICATION: SCREENING COMPARISON: No prior studies are available for comparison. Baseline exam FINDINGS: CC and MLO views of the breasts were obtained, using full field digital mammography with 3D tomosynthesis views in the MLO projection. Computer aided detection with the Tunezy 7.2-H was employed. A cleavage view was also obtained. The breasts contain heterogeneously dense tissues, which may lower sensitivity of mammography in this patient. No suspicious masses, suspicious microcalcifications, or areas of architectural distortion are identified within either breast. Rare benign-appearing breast calcifications are present bilaterally. There are no secondary signs of breast malignancy. IMPRESSION: No specific mammographic evidence of breast malignancy. Asymmetry overlying the posterolateral right breast in the CC projection is shown to represent a skin finding on tomography and should be correlated with physical exam. Lack of a mammographic finding in the presence of a clinically suspicious palpable abnormality does not preclude the possibility of malignancy or alter the indications for biopsy. BI-RADS - Category 2 - Benign finding 3342F, 7025F Annual screening mammography is recommended. Patient entered into a reminder system with a target date for the next mammogram. ([id number] / [id number]) , [id number] Dictating Physician: RENNY FORTUNE MD Electronically Signed by: RENNY FORTUNE MD Dic Date/Time: 01/30/181758 Sign date/Time: 01/30/18 180 Procedure Note Renny Fortune MD - 02/02/2022 [facility] Diagnostic Imaging Department [address] [place] [address] Patient: KAR MANUEL FRANCISCO D.O.B./Age/Sex: 1975 - 43 - F Unit#: [id number] Location/Status: SPDIMA/REG CLI Mnemonic/Ordering Site: [facility] Ordering Physician: RUCHI MITCHELL MD Nanda Screening Digital - 01/30/18 - 1502 INDICATION: SCREENING COMPARISON: No prior studies are available for comparison. Baselineexam FINDINGS: CC and MLO views of the breasts were obtained, using full field digital mammography with 3D tomosynthesis views in the MLO projection. Computeraided detection with the Tunezy 7.2-H was employed. A cleavage view wasalso [...] date for the next mammogram. [id number] / [id number]) , 13548 Dictating Physician: RENNY FORTUNE MD Electronically Signed by: RENNY FORTUNE MD Dic Date/Time: 01/30/18 1759 Sign date/Time: 01/30/18 1802 us Ruchi Mitchell MD IMG BI PROCEDURES Final Res ult from Last 3 Months or Most Recently Relevant to Health Maintenance Insurance [facility] MEDICAID Care Teams Steel Inspector Relationship Specialty Start Date End Date Raj Rodas MD [address] [place] [address] [address] [facility] [place] [address] PCP - General Internal Medicine 04/23/21
--- OUTSIDE RECORDS SUMMARY | 2024-12-24 14:51 | XMS_ITS | Encounter Summary ---
Author Organization [facility] Address [address] [address] Phone Care Team Providers Care Brand Development Manager Name Role Phone Raj Rodas MD Primary Care Provider [phone] Reason for Visit * Reason Comments Med Refill Encounter Details Date Type Department Care Team (Late Contact Info) Description 06/11/2024 Refill [facility] [address] [address] Ronald Romero MD [address] [address] Social History Tobacco Use Types [...] Encounters Date Type Department Care Team (Late Contact Info) Description 06/26/2025 1:15 PM EDT Office Visit [facility] [address] [address] Gala Redman ARNP [address] [address] documented as of this encounter Visit Diagnoses Not on filedocumented in this encounter Care Teams Brand Development Manager Relationship Specialty Start Date End Date Raj Rodas MD [address] JAIRON HORVATH PCP - General 02/25/20 documented as of this encounter
--- OUTSIDE RECORDS SUMMARY | 2024-12-24 14:51 | XMS_ITS | Clinical Summary ---
Author Organization [facility] Address [address] [place] [address] Phone Care Team Providers Care Physician Aide Name Role Phone Raj Rodas MD Primary Care Provider [phone] Allergies No known active allergies Medications amLODIPine (NORVASC) 2.5 MG tablet Take 2.5 mg by mouth 1 (one) time each day 1 Active Aspirin Low Dose 81 MG EC tablet Take 81 mg by mouth 1 (one) time each day 0 Active atorvastatin (LIPITOR) 20 MG tablet Take 20 mg by mouth 1 (one) time each day 1 Active Potassium Citrate ER 15 MEQ (1620 MG) tablet controlled-releas e Take 1 tablet by mouth in the morning and 1 tablet at noon and 1 tablet in the evening. 3 Active albuterol HFA (PROVENTIL HFA;VENTOLIN HFA) 108 (90 Base) MCG/ACT inhaler INHALE 2 PUFFS BY MOUTH EVERY 6 HOURS NEEDED FOR SHORTNESS OF BREATH OR WHEEZING 5 Active lisinopril (PRINIVIL,ZESTRIL ) 30 MG tablet Take 30 mg by mouth 1 (one) time each day 5 Active Mounjaro 5 MG/0.5ML solution auto-injector ADMINISTER 5MG UNDER THE SKIN ONCE WEEKLY DIRECTED 5 Active Xigduo XR 10-1000 MG tablet sustained-release 24 hourIndications:T ype 2 diabetes mellitus with other specified complication (HCC) Take 1 tablet by mouth 1 (one) time each day 30 tablet 11 5 06/27/19 26 Active allopurinol (ZYLOPRIM) 100 MG tabletIndications :Medullary sponge kidney,Nephrolith iasis,Uric acid urolithiasis Take 1 tablet (100 mg total) by mouth 1 (one) time each day 30 tablet 11 5 06/27/19 26 Active Active Problems Problem Noted Date Diagnosed Date Uric acid urolithiasis 06/26/2024 Type 2 diabetes mellitus with other specified co mplication 06/26/2024 Hypo-osmolality and hyponatremia 11/07/2023 Iron deficiency anemia, not otherwise specified 11/07/2023 Blood in urine 04/28/2020 Hypertension 04/28/2020 Medullary sponge kidney 04/28/2020 Nephrolithiasis 04/28/2020 Immunizations Immunization Administration Dates Next Due Pneumococcal [...] Reading Time Taken Comments Blood Pressure 115/70 06/26/2024 2:02 PM EDT Pulse 74 06/26/2024 2:02 PM EDT Temperature - - Respiratory Rate - - Oxygen Saturation 98% 05/02/2023 9:15 AM EDT Inhaled Oxygen Concentration - - Weight 99.2 kg (218 lb 12.8 oz) 06/26/2024 2:02 PM EDT Height 160 cm (5' 3 ) 04/30/2021 2:37 PM EDT Body Mass Index 38.76 04/30/2021 2:37 PM EDT Plan of Treatment Upcoming Encounters Date Type Department Care Team (Late st Contact Info) Description 06/26/2025 1:15 PM EDT Office Visit [facility] [address] [address] Gala Redman ARNP [address] [address] Health Maintenance Due Date Last Done Comments Hepatitis B Vaccine (1 of 3 - 19+ 3-dose series) 01/09/1996 Pneumococcal Vaccine: Peds ( 0 to 5 Years) and At-Risk Patients (6 to 49 Years) (2 of 2 - PCV) 11/30/2014 11/30/2013 Diabetes: Ophthalmology Exam 05/03/2022 Diabetes: Pedal Pulse Checked 05/03/2022 Diabetes: Sensory Foot Exam 05/03/2022 Diabetes: Visual Foot Exam 05/03/2022 Diabetes: Hemoglobin A1C 09/29/2024 025, 05/05/2022, 04/27/2021, Additional history exists Influenza Vaccine (#1) 2024 Pneumococcal Vaccine: 50+ Years Discontinued 4 Procedures Procedure Name Priority Date/Time Associated Diagnosis Comments HEMOGLOBIN A1C Routine 06/29/2024 8:37 AM EDT Type 2 diabetes mellitus with other specified complication (HCC) from Last 3 Months or Most Recently Relevant to Health Maintenance Results * (ABNORMAL) Hemoglobin A1c (06/29/2024 8:37 AM EDT) Hemoglobin A1C 6.7(H) 4.8 - 5.6 % [employer] Comment: Prediabetes: 5.7 - 6.4 Diabetes: >6.4 Glycemic control for adults with diabetes: <7.0 Blood specimen (specimen) Venous blood / Unknown 06/29/2024 8:37 AM EDT 06/29/2024 Gala Redman [facility] BLOOD ORDERABLES Final Result [id number] [place] [address] [place] [address] from Last 3 Months or Most Recently Relevant to Health Maintenance Insurance [facility] ([id number]) [facility] ([id number]) Care Teams Physician Aide Relationship Specialty Start Date End Date Raj Rodas MD [address] [place], [place] PCP - General 02/25/20
== END 2024-12-24 13:17 | disposition home or self-care (01) ==
LOC: HO.HMCH 12:45
PROVIDERS: PCP Internal Medicine; Visit Provider Internal Medicine
DX: E11.65 Type 2 diabetes mellitus with hyperglycemia (principal); I10 Essential (primary) hypertension; E78.00 Pure hypercholesterolemia, unspecified; E66.01 Morbid (severe) obesity due to excess calories; Z68.41 Body mass index [BMI] 40.0-44.9, adult; K76.0 Fatty (change of) liver, not elsewhere classified; N20.0 Calculus of kidney; M54.50 Low back pain, unspecified; Z12.31 Encounter for screening mammogram for malignant neoplasm of breast; Z13.9 Encounter for screening, unspecified

== ENCOUNTER → 2024-12-24 12:44 | Outpatient (BNVA) | payer OTHER, SELFPAY | PROVIDERS: PCP Internal Medicine; Visit Provider Internal Medicine | DX: Z12.31 Encounter for screening mammogram for malignant neoplasm of breast (principal); E11.65 Type 2 diabetes mellitus with hyperglycemia; I10 Essential (primary) hypertension; E78.00 Pure hypercholesterolemia, unspecified; E66.01 Morbid (severe) obesity due to excess calories; K76.0 Fatty (change of) liver, not elsewhere classified; N20.0 Calculus of kidney; M54.50 Low back pain, unspecified; Z68.35 Body mass index [BMI] 35.0-35.9, adult | CPT/HCPCS: 83036; 96127; 99212 ==

== ENCOUNTER 2025-01-02 08:40 | Outpatient (REF) | payer OTHER, SELFPAY ==
--- NOTE | ~2025-01-02 | XR_ITS ---
EXAMINATION: XR LUMBOSACRAL SPINE CLINICAL INFORMATION: M54.50 - Low back pain, unspecified COMPARISON: Radiographs on November 20, 2021. CT of abdomen/pelvis on November 01, 2023. TECHNIQUE: Three views of the lumbosacral spine. FINDINGS: As previously described, there are 4 nyr-ryp-pnmfyop lumbar vertebra with sacralization of L5. Normal alignment. No compression fracture. Disc spaces are preserved. Minimal facet arthropathy at L4-L5. Bilateral sacroiliac joints are intact. Similar sclerotic changes of bilateral sacroiliac joints, right greater than left. Surgical clips in the right upper quadrant from prior cholecystectomy. Intrauterine device projects over the pelvis. XR/XR lumbar spine 2-3V IMPRESSION: No acute findings. No significant interval change from prior studies. Electronically signed by: Dionne Orozco MD 01/02/2025 09:49 AM [place]
[2025-01-02 09:01] LABS: MANUAL DIFF FLAG NO
[2025-01-02 10:08] LABS: Hematocrit 42.6 % (37.0-47.0); Hemoglobin 13.1 g/dl (12.0-16.0); Imm Gran Abs Auto 0.02 X10*3/uL (0.00-0.03); Imm Gran Pct Auto 0.2 % (0.0-0.4); Lymphocytes Absolute Auto 2.4 X10*3/uL (1.2-4.9); Mean Corpuscular HGB Conc 30.8 g/dl (31.0-35.0); Mean Corpuscular Hemoglobin 26.9 pg (27.0-33.0); Mean Corpuscular Volume 87.5 fL (80.0-98.0); NRBC Abs Auto 0.000 X10*3/uL (0.0-0.012); NRBC Pct Auto 0.0 /100WBC (0.0-0.2); Platelet Count 303 X10*3/uL (160-400); Red Blood Count 4.87 X10*6/uL (4.20-5.50); White Blood Count 8.4 X10*3/uL (4.8-10.8)
[2025-01-02 10:14] LABS: Appearance Urine Clear; Glucose Urine UA >=1000 mg/dL (Negative); PH 5.5 (5.0-9.0); Specific Gravity - Urine 1.020 (1.005-1.025); UMIC TRIGGER UACC YES
[2025-01-02 10:37] LABS: Alanine Aminotransferase 44 U/L (0-31); Albumin Level 4.8 g/dL (3.5-5.0); Alkaline Phosphatase 128 U/L (39-117); Anion Gap 13 (12-20); Aspartate Amino Transferase 26 U/L (5-31); Blood Urea Nitrogen 14 mg/dL (9-16); Calcium 9.8 mg/dL (8.4-10.2); Carbon Dioxide 30 mmol/L (22-29); Chloride 103 mmol/L (96-108); Cholesterol 157 mg/dL (<200); Estimated Glomerular Filt Rate > 60; HDL Cholesterol 65 mg/dL (>40); Potassium 4.5 mmol/L (3.3-5.1); Sodium 141 mmol/L (135-145); Total Protein 8.1 g/dL (6.5-8.0); Triglycerides 113 mg/dL (<150)
[2025-01-02 10:51] LABS: UACC Culture Trigger YES
[2025-01-02 10:56] LABS: Free T4 (Free Thyroxine) 1.01 ng/dL (0.71-1.85); Thyroid Stimulating Hormone 0.59 uIU/mL (0.32-4.0)
[2025-01-02 11:05] LABS: Folate 9.8 ng/mL (> or = 4.0); Vitamin B12 472 pg/mL (200-900)
[2025-01-02 11:20] LABS: Microalbum/Creatinine Ratio Ur 36.1 ug/mg cr (<30)
--- OUTSIDE RECORDS SUMMARY | 2025-01-02 16:22 | XMS_ITS | Data Portability ---
Author Organization [facility] [place] [facility], [facility] Medical [facility] Address [address] [place] [phone] Care Team Providers Care Care Tech Name Role Phone [facility] Referring Provider [phone] Assessment No assessment recorded. Plan of Treatment Reminders Order Date Submit Date Provider Last Modified By Organization Details Last Modified Time Details Appointments None recorded. Lab culture, urine 2022 023 [place] [facility] (Centralized Electronic Ordering - All Locations), Patient Can Go To The Location Of Their Choice, 23:41:55 urinalysis , dipstick 2022 023 [facility], [address] [place] [address], [phone] 19:33:43 Referral None recorded. Procedures None recorded. Surgeries None recorded. Imaging None recorded. Medication Orders Macrobid 100 mg capsule 2022 023 [id number], [address] [place], [place], [phone], 19:33:56 Patient TargetsNo targets recorded. Patient InstructionsNo [...] Go To The Location Of Their Choice, [id number] 01/04/2023 23:41:55 01/04/2001/04/2023 URINE CULTU RE report status FINAL 2022 Not Available [facility] (Centralized Electronic Ordering - All Locations) Patient Can Go To The Location Of Their Choice, [address] 01/04/2023 23:41:55 01/04/2001/03/2023 urina lysis , dipst ick Leukocytes trace Not Available [facility] - [facility] [address] [place] [address], [phone] 01/03/2023 19:32:55 01/04/2001/03/2023 urina lysis , dipst ick Nitrite negati ve Not Available [facility] - [facility] [address] [place] [address], [phone] 01/03/2023 19:32:55 01/04/2001/03/2023 urina lysis , dipst ick Blood negati ve Not Available Main - Inst [facility] [address] [place] [address], [phone] 01/03/2023 19:32:55 Result Notes None recorded. Medical [...] ICD10 Code Diagnosis IMO Codes Diagnosis Note [id number] Eulalio Ring MD Main - [facility] [address] [place] [phone] 01/03/2023 19:29:31 01/04/2023 10:48:19 Right flank pain [id number] R10.9 Patient reports one day of dysuria, [...] White Member ID Guarantor Name 01/03/[address] [facility] - DOS ON OR AFTER 2022 - DUAL ELIGIBLE - [facility] OPTIONS AND ONE CARE (MEDICARE REPLACEMENT/ADV ANTAGE - HMO) Xiomy Henderson [id number] Xiomy Henderson Notes Date Note Type Note [...] ................. ................. ................. ................. ................. ................. ..... Resource Room Teacher Note From Ricky Jensen: Pt reports dysuria, [...] - NIT, - BLO. UC sent to [facility]. [facility] contacted and sent rx for macrobid. Pt instructed to stay well hydrated, f/u with urologist tomorrow morning and to seek emergent medical care for new or worsening sx, which are reviewed with her. [facility] Lab Orders: culture, urine: Performed urinalysis, dipstick: Performed ................. ................. ................. ................. ................. ................. ................. ................. ..... Disposition: Fulfilled Eulalio Ring MD [address] [facility] [facility], [place], [phone], Instilling Values - [employer] 01/03/2023 19:48:37 OBGyn Episode No OBEpisode recorded.
== END 2025-01-02 08:41 | disposition home or self-care (01) ==
LOC: HO.XRAY 08:40
PROVIDERS: PCP Internal Medicine; Visit Provider Internal Medicine
DX: E11.65 Type 2 diabetes mellitus with hyperglycemia (principal); E78.00 Pure hypercholesterolemia, unspecified; M54.50 Low back pain, unspecified; R30.0 Dysuria; Z13.21 Encounter for screening for nutritional disorder
CPT/HCPCS: 36415; 72100; 80053; 80061; 81001; 81003; 82043; 82306; 82570; 82607; 82746; 83036; 84439; 84443; 85025; 87086; 87088; 87186

== ENCOUNTER → 2025-01-02 09:05 | Outpatient (BNV) | payer OTHER, SELFPAY | PROVIDERS: PCP Internal Medicine; Visit Provider Radiology Body Imaging | DX: M54.50 Low back pain, unspecified (principal) | CPT/HCPCS: 72100 ==

== ENCOUNTER 2025-01-25 12:38 | Outpatient (REF) | payer OTHER, SELFPAY ==
--- OUTSIDE RECORDS SUMMARY | 2025-01-25 18:03 | XMS_ITS | Clinical Summary ---
Author Organization [facility] Address [address] [place] [address] Care Team Providers Care Neurology Physician Name Role Phone Raj Rodas MD Primary Care Provider Allergies No known active allergies Encounters Date Type Department Care Team Description 12/04/2024 8:17 PM EDT - 12/04/2024 11:04 PM EDT Emergency [facility] Emergency [address] [place] [address] Acute pain of right knee (Primary Dx) Discharge Disposition: Home or Self Care from Last 3 Months Surgical History Surgery Date Site/Laterality Comments OTHER SURGICAL HISTORY N/A PROCEDURE: CT TOT ABD HYST W/PARAORTIC & PELVIC LYMPH NODE FERN CHOLECYSTECTOMY N/A PROCEDURE: CT LAPAROSCOPY SURG CHOLECYSTECTOMY Medical History Medical History [...] by: Silver Khan MD on 12/04/2024 22:51:[address] PROCEDURES Final Result [...] 12/05/2024 10:00 AM EDT Normal examination. Code 84611 -------- FINAL REPORT -------- Dictated By: Ji Kendall Dictated Date: 12/05/2024 09:59 ET Assigned Physician: Ji Kendall Reviewed and Electronically Signed By: Ji Kendall Signed Date: 12/05/2024 10:00 ET Workstation ID: [id number] Transcribed By: Self Edit Transcribed Date: 12/05/2024 [...] abnormality is seen. IMPRESSION: Normal examination. Code 01418 -------- FINAL REPORT -------- Dictated By: Ji Kendall Dictated Date: 12/05/2024 09:59 ET Assigned Physician: Ji Kendall Reviewed and Electronically Signed By: Ji Kendall Signed Date: 12/05/2024 10:00 ET Workstation ID: [id number] Transcribed By: Self Edit Transcribed Date: 12/05/2024 09:59 ET Leeanna SAMUEL IMG XR PROCEDURES Final Result * NANDA SCREENING DIGITAL (01/30/2018 6:02 PM EST) Anatomical Region Laterality Modality Mammography 01/30/2018 2:27 PM EST Narrative 01/30/2018 6:02 PM EST [facility] Diagnostic Imaging Department [address] [place] [id number] Patient: XIOMY AMEZCUA /Age/Sex: 1975 - 43 - F Unit#: [id number] Location/Status: SPDIMAM/REG CLI Mnemonic/Ordering Site: [facility] Ordering Physician: RUCHI MITCHELL MD Nanda Screening Digital - 01/30/18 - 1501 INDICATION: SCREENING COMPARISON: No prior studies are available for comparison. Baseline exam FINDINGS: CC and MLO views of the breasts were obtained, using full field digital mammography with 3D tomosynthesis views in the MLO projection. Computer aided detection with the [employer] 7.2-Quid was employed. A cleavage view was also [...] a target date for the next mammogram. ([id number] / [id number]) , [id number] Dictating Physician: RENNY FORTUNE MD Electronically Signed by: RENNY FORTUNE MD Dic Date/Time: 01/30/181758 Sign date/Time: 01/30/181801 Procedure Note Renny Fortune MD - 02/02/2022 [facility] Diagnostic Imaging Department [address] [place] [address] Patient: XIOMY AMEZCUA./Age/Sex: 1975 - 43 - F Unit#: [id number] Location/Status: SPDIMAM/REG CLI Mnemonic/Ordering Site: [facility] Ordering Physician: RUCHI MITCHELL MD Nanda Screening Digital - 01/30/18 - 1502 INDICATION: SCREENING COMPARISON: No prior studies are available for comparison. Baselineexam FINDINGS: CC and MLO views of the breasts were obtained, using full field digital mammography with 3D tomosynthesis views in the MLO projection. Computeraided detection with the Queue-it 7.2-H was employed. A cleavage view wasalso [...] date for the next mammogram. (G0202 / [id number]) , 13350 Dictating Physician: RENNY FORTUNE MD Electronically Signed by: RENNY FORTUNE MD Dic Date/Time: 01/30/18 175 Sign date/Time: 01/30/181801 Ruchi Mitchell MD IMG BI PROCEDURES Final Res ult from Last 3 Months or Most Recently Relevant to Health Maintenance Insurance [facility] MEDICAID Care Teams Neurology Physician Relationship Specialty Start Date End Date Raj Rodas MD [address] [place] [address] [address] [facility] [place] [address] PCP - General Internal Medicine 04/23/21
--- OUTSIDE RECORDS SUMMARY | 2025-01-25 18:03 | XMS_ITS | Encounter Summary ---
Author Organization [facility] Address [address] [place] [address] Encounters * CPT with [facility] at [facility] on 2025-01-24 { reasonForRequest : kidneys are hurting, fever for three days , patientRep orts : , denies :[ Unable to void greater than 5 hours , Erection that will not go away after 2 hours , Fall or trauma that results in urinary incontinence in the setting of pain , Fall or injury that results in incontinence in the absence of pain , Lower back pain either unilateral or bilateral, unable to void, painful urination -hematuria , Painful urination , Frequent and increased urination with flankpain , Painful urination with or without fever , Inability to fully empty bladder ], chiefComplaints : Fever, Urinary Symptoms , pmh : Diabetes Mellitus Type 2, Hypertension, Anemia , allergies : No Known Drug Allergies", otherAllergies : , painAssessment : , visitOut come : , additionalComments : 50 y.o female complains of Fever, Urinary Symptoms\n\nCall completed with automotive parts interpreter. \n\nPatient calling for a fever and bilateral kidney bilaterally for 3 days. \nShe had this in the past and had an infection. \nShe denies any burning urination, no urgency, or frequency. Stated her urine is normal. \nShe takes potassium, stated for her kidneys. \nShe has had kidney stones in the past, but also stated she had an infection, poor histo corine. \nShe is unsure about temp but stated she had a fever she took tylenol. \n\n\n\nI provided information on the mobile health provider response time and advised the patient and/or caregiver to monitor reported signs and symptoms. I discussed the warning signs of when to seek emergency care."} Dispatched to the call address for the female with UTI concerns. Pt states for three days now she has bilateral flank/CVA pain as well as on and off fevers. She states she has been able to maintain PO intake. She has had this last month and was hospitalized for 4 days with IV abx. 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 She denies urinary urgency, pain, frequency, blood in her urine, chest pain, diff breathing, n/v/d or other complaints at this time. Pt was found sitting on living room couch, CAOx4, airway open and patent, breathing non labored, able to speak in full sentences, -JVD, -HEENT, skin PWD with good turgor, mucous membranes pink and moist, abd soft non tender/distended, pupils PERRL, afebrile, lungs CTA, +CMSx4, -edema/swelling, +CVAtenderness bilaterally, UA (+). Urine clear and pale yellow in color/clarity. UTI Pt was assessed. UA conducted and results uploaded to Pts portal, lab sample obtained. C consulted. Pt given PO Bactrim after confirming med rights. Script called into preferred pharmacy. Red flag discussed. ALL times are approx. ORAL_MEDICATION, EKG, POC_BLOODWORK, POC_FLU_STREP, GLUCOSE, COVID_TEST Written by Medical [facility] on 2025-01-24
--- OUTSIDE RECORDS SUMMARY | 2025-01-25 18:03 | XMS_ITS | Encounter Summary ---
Author Organization [facility] Address [address] [place] [address] Care Team Providers Care Automatic Typewriter Inspector Name Role Phone Raj Rodas MD Primary Care Provider [phone] Encounter Details Date Type Department Care Team (Late st Contact Info) Description 03/29/2024 Lab Requisition [facility] - Main Lab [address] [place] [id number] eKyon Garcia PA [address] [facility] [address] [place] [phone] Benign essential microscopic hematuria Social History Tobacco [...] AM EST) Final Diagnosis A. Urine, Voided, ([id number]): Negative for high grade urothelial carcinoma. Acute inflammatory cells are present. Results of UroVysion fluorescence in situ hybridization (FISH) testing: CEP3: Normal CEP7: Normal CEP17: Normal LSI 9p21: Normal Interpretation: Normal profile Controls stained appropriately. Note: The results are intended as a screening device and should be interpreted in association with other clinical and pathological findings. 04/03/2024 2:05 PM EST [facility] at 1405 EST Clinical Information Benign essential microscopic hematuria R31.1 Urine Cytology/FISH (now) 04/03/2024 2:05 PM [facility] Gross Description A. Urine, Voided, ([id number]): Received one ThinPrep slide for cytology and one ThinPrep slide for UroVysion FISH 04/03/2024 2:05 PM [facility] Disclaimer Unless otherwise specified, all tissue is 10% NB formalin fixed and paraffin embedded. Technical pathology services provided by [facility] at [address] [place] [address] (CLIA #[id number]/Brandi Villafana MD, Pencil Maker) 04/03/2024 2:05 PM [facility] Tissue Urine specimen from urethra / Unknown 03/22/2024 03/29/2024 2:18 PM EST us [facility] ORDERAB LES Final Result [facility] [address] [place] [address], documented in this encounter Visit Diagnoses Diagnosis Benign essential microscopic hematuria documented in this encounter Care Teams Automatic Typewriter Inspector Relationship Specialty Start Date End Date Raj Rodas MD [address] [facility] [place] [address] PCP - General Internal Medicine 04/23/21 documented as of this encounter
--- OUTSIDE RECORDS SUMMARY | 2025-01-25 18:03 | XMS_ITS | Continuity of Care Document ---
Author Name instED, Medical Address [address] [place] [id number] Organization Unknown Address [address] [place] [address] Medications No known medications Problems No known problems
== END 2025-01-25 12:39 | disposition home or self-care (01) ==
LOC: HO.MAMMO 12:38
PROVIDERS: PCP Internal Medicine; Visit Provider Internal Medicine
DX: Z12.31 Encounter for screening mammogram for malignant neoplasm of breast (principal)
CPT/HCPCS: 77063; 77067

== ENCOUNTER → 2025-01-25 12:45 | Outpatient (BNV) | payer OTHER, SELFPAY | PROVIDERS: PCP Internal Medicine; Visit Provider Internal Medicine | DX: Z12.31 Encounter for screening mammogram for malignant neoplasm of breast (principal) | CPT/HCPCS: 77063; 77067 ==